=== PATIENT | female | born 1955 | race Two or more races ===

== ENCOUNTER 2018-08-23 14:44 | Emergency (ER) | payer OTHER ==
[~2018-08-23] VITALS: Ht 152.4 cm; Wt 65.8 kg
[2018-08-23] MEDS ORDERED: ACETAMINOPHEN 325 MG TAB PO ONE (15:15)
[2018-08-23] MEDS ORDERED: SODIUM CHLORIDE 0.9% 1,000 ML IV ONE ×2 (15:51→19:15)
[2018-08-23 16:04] LABS: Basophils # (auto) 0 uL; Basophils % (auto) 0.1 % (0.0-2.0); Eosinophils # (auto) 0 uL; Hemoglobin 9.7 g/dL (12.2-16.2); Lymphocytes # (auto) 1.1 uL; Lymphocytes % (auto) 4.9 % (10.0-50.0); Mean Corpuscular Hemoglobin 27.9 pg (28.0-32.0); Mean Corpuscular Hgb Conc. 31.4 g/dL (32.0-36.0); Mean Corpuscular Volume 88.8 fL (80.0-100.0); Monocytes # (auto) 1.1 uL; Monocytes % (auto) 4.6 % (0.0-12.0); Neutrophils # (auto) 20.9 uL; Neutrophils % (auto) 90.4 % (37.0-80.0); Platelet Count (auto) 347 10^3/uL (140-450); Red Blood Cells 3.49 10^6/uL (4.0-5.20); Red Cell Distribution Width 14.4 % (11.8-14.3); White Blood Cell 23.1 10^3/uL (4.4-10.8)
[2018-08-23 16:14] LABS: Alanine Aminotransferase 11 U/L (13-56); Albumin 2.6 g/dL (3.4-5.0); Anion Gap 10 (5-15); Aspartate Aminotransferase 9 U/L (15-37); BUN/Creatinine Ratio 16.5; Blood Urea Nitrogen 34 mg/dL (7-18); Calcium 9.1 mg/dL (8.5-10.1); Carbon Dioxide 22 mmol/L (21-32); Chloride 96 mmol/L (98-107); GFR African American 31 mL/min; GFR Non-African American 26 mL/min; Potassium 4.8 mmol/L (3.5-5.1); Sodium 128 mmol/L (136-145)
[2018-08-23 16:17] LABS: Alkaline Phosphatase 122 U/L (45-117); Bilirubin, Total 0.3 mg/dL (0.2-1.0); Total Protein 8.7 g/dL (6.4-8.2)
[2018-08-23 16:20] LABS: Lactic Acid w/Reflex 3.6 mmol/L (0.4-2.0)
[2018-08-23 16:26] LABS: Glucose 449 mg/dL (74-106)
[2018-08-23 16:37] LABS: INR 0.93 (0.9-1.15); Partial Thromboplastin Time 31.7 sec (23.78-33.04)
[2018-08-23] MEDS ORDERED: VANCOMYCIN 1GM/250ML 250 ML IV ONE (17:30)
[2018-08-23] MEDS ORDERED: VANCOMYCIN PER PHARMACY 0 MG IV SCH (17:45)
[2018-08-23] MEDS ORDERED: InsuLIN REG 1unit/0.01ml Soln (100units/ml) SC ONE (19:15)
[2018-08-23] MEDS ORDERED: InsuLIN REG 1unit/0.01ml Soln (100units/ml) IV ONE (19:15)
[2018-08-23] MEDS ORDERED: PIPERACILLIN-TAZO 4.5GM 100 ML IV ONE (19:30)
[2018-08-23] MEDS ORDERED: SODIUM CHLORIDE 0.9% 1,000 ML IV SCH (20:15)
[2018-08-23 22:10] VITALS: BP 149/72
[2018-08-24] MEDS ORDERED: PIPERACILLIN-TAZOB 2.25GM 50 ML IV SCH (03:00)
== END 2018-08-23 22:10 | disposition home or self-care (01) ==
LOC: EDSEX 14:44 → ER 14:44
DX: L03.115 Cellulitis of right lower limb (principal); E11.65 Type 2 diabetes mellitus with hyperglycemia; I10 Essential (primary) hypertension; Z98.51 Tubal ligation status; Z90.49 Acquired absence of other specified parts of digestive tract
CPT/HCPCS: 36415; 73630; 73700; 80053; 82962; 83605; 84484; 85025; 85610; 85730; 87040; 94761; 96361; 96365; 96367; 96372; 99285; J1815; J2543; J3370; J7030

== ENCOUNTER 2018-11-09 16:50 | Emergency (ER) | payer OTHER ==
[~2018-11-09] VITALS: Ht 144.8 cm; Wt 67.1 kg
[2018-11-09 17:04] VITALS: BP 150/71
[2018-11-09 17:22] LABS: Basophils # (auto) 0.1 uL; Basophils % (auto) 0.5 % (0.0-2.0); Eosinophils # (auto) 0.1 uL; Eosinophils % (auto) 1.3 % (0.0-7.0); Hematocrit 26.3 % (36.0-46.0); Hemoglobin 8.7 g/dL (12.2-16.2); Lymphocytes # (auto) 1.8 uL; Lymphocytes % (auto) 16.3 % (10.0-50.0); Mean Corpuscular Hgb Conc. 33.2 g/dL (32.0-36.0); Mean Corpuscular Volume 87.3 fL (80.0-100.0); Monocytes # (auto) 0.6 uL; Monocytes % (auto) 5.3 % (0.0-12.0); Neutrophils # (auto) 8.5 uL; Neutrophils % (auto) 76.6 % (37.0-80.0); Platelet Count (auto) 287 10^3/uL (140-450); Red Blood Cells 3.02 10^6/uL (4.0-5.20); Red Cell Distribution Width 16.6 % (11.8-14.3); White Blood Cell 11.1 10^3/uL (4.4-10.8)
[2018-11-09 17:39] LABS: Albumin 2.9 g/dL (3.4-5.0); Anion Gap 6 (5-15); Blood Urea Nitrogen 37 mg/dL (7-18); Calcium 8.4 mg/dL (8.5-10.1); Carbon Dioxide 24 mmol/L (21-32); Chloride 103 mmol/L (98-107); Potassium 4.7 mmol/L (3.5-5.1); Sodium 133 mmol/L (136-145)
[2018-11-09 17:44] LABS: Alanine Aminotransferase 17 U/L (13-56); Alkaline Phosphatase 174 U/L (45-117); Aspartate Aminotransferase 7 U/L (15-37); BUN/Creatinine Ratio 24.5; Bilirubin, Total 0.2 mg/dL (0.2-1.0); GFR African American 45 mL/min; GFR Non-African American 37 mL/min; Total Protein 7.8 g/dL (6.4-8.2)
[2018-11-09] MEDS ORDERED: SODIUM CHLORIDE 0.9% 1,000 ML IVB ONE (17:53)
[2018-11-09 17:56] LABS: Glucose 425 mg/dL (74-106)
[2018-11-09] MEDS ORDERED: MORPHINE SULFATE 10 MG/ML INJ 1ML SDV IV ONE (18:00)
[2018-11-09] MEDS ORDERED: ASPirin 81 mg TAB PO ONE (18:00)
[2018-11-09] MEDS ORDERED: ONDANSETRON HCL 4 MG/2 ML VIAL IV ONE (18:00)
[2018-11-09] MEDS ORDERED: InsuLIN REG 1unit/0.01ml Soln (100units/ml) IV ONE (18:00)
[2018-11-09 18:20] LABS: INR 0.87 (0.9-1.15); Partial Thromboplastin Time 28.4 sec (23.78-33.04); Prothrombin Time 9.4 sec (9.27-12.13)
== END 2018-11-09 17:55 | disposition left against medical advice (07) ==
LOC: ER 16:58
DX: R07.89 Other chest pain (principal); D64.9 Anemia, unspecified; E11.65 Type 2 diabetes mellitus with hyperglycemia; E78.5 Hyperlipidemia, unspecified; I10 Essential (primary) hypertension; Z98.51 Tubal ligation status; Z90.49 Acquired absence of other specified parts of digestive tract
CPT/HCPCS: 36415; 71046; 80053; 83735; 84484; 85025; 85610; 85730; 93005; 94761

== ENCOUNTER 2019-10-21 23:40 | Inpatient (IN) | payer OTHER ==
[~2019-10-21] VITALS: Ht 152.4 cm; Wt 70.0 kg
[~2019-10-21 23:40] MED LIST: AMLO5TAB15 PO; ATOR40TA52 PO; BENA20TA14 PO; CARV25TA55 PO; GABA300C10 PO; ISOS60TA24 PO
[2019-10-22] VITALS (8 sets, daily range): BP systolic 95–154; BP diastolic 55–75
[2019-10-22] MEDS ORDERED: MORPHINE SULFATE 4 MG/ML SYR/VIAL IV ONE
[2019-10-22 00:27] LABS: Basophils # (auto) 0 uL; Basophils % (auto) 0.4 % (0.0-2.0); Eosinophils # (auto) 0.3 uL; Eosinophils % (auto) 3.6 % (0.0-7.0); Hematocrit 28.9 % (36.0-46.0); Hemoglobin 9.8 g/dL (12.2-16.2); Lymphocytes # (auto) 2.9 uL; Lymphocytes % (auto) 32.4 % (10.0-50.0); Mean Corpuscular Hgb Conc. 33.9 g/dL (32.0-36.0); Mean Corpuscular Volume 91.5 fL (80.0-100.0); Monocytes # (auto) 0.6 uL; Monocytes % (auto) 6.9 % (0.0-12.0); Neutrophils # (auto) 5.2 uL; Neutrophils % (auto) 56.7 % (37.0-80.0); Nucleated Red Blood Cells % 0.1 %; Platelet Count (auto) 226 10^3/uL (140-450); Red Blood Cells 3.16 10^6/uL (4.0-5.20); Red Cell Distribution Width 14.6 % (11.8-14.3); White Blood Cell 9.1 10^3/uL (4.4-10.8)
[2019-10-22] MEDS ORDERED: ONDANSETRON HCL 4 MG/2 ML VIAL IV ONE (00:30)
[2019-10-22 00:42] LABS: Albumin 3.3 g/dL (3.4-5.0); BUN/Creatinine Ratio 25.2; Calcium 8.6 mg/dL (8.5-10.1); Potassium 5.2 mmol/L (3.5-5.1)
[2019-10-22 00:44] LABS: INR 1.01 (0.9-1.15); Partial Thromboplastin Time 25.4 sec (23.64-32.05)
[2019-10-22 00:47] LABS: Bilirubin, Total 0.2 mg/dL (0.2-1.0); Total Protein 7.4 g/dL (6.4-8.2)
[2019-10-22] MEDS ORDERED: ALBUTEROL SULF 2.5 MG/0.5ML(0.5%) NEB SOLN NEB STA (01:35)
[2019-10-22] MEDS ORDERED: ENOXAPARIN SOD 100 MG/1 ML SYRINGE SC ONE (01:45)
[2019-10-22] MEDS ORDERED: FUROSEMIDE 20 MG/2 ML VIAL IV ONE (01:45)
[2019-10-22] MEDS ORDERED: IPRATROPIUM BROM 0.5 MG/2.5ML INH SOL NEB ONE (01:45)
[2019-10-22] MEDS ORDERED: ASPirin-EC 81 mg tab PO ONE (02:00)
[2019-10-22 02:42] LABS: Urine Bacteria MANY /hpf (None Seen); Urine Blood Negative /uL (Negative); Urine Hyaline Cast MOD /lpf (0 - 2); Urine Specific Gravity 1.011 (1.001-1.035); Urine WBC 3 /hpf (0 - 5)
[2019-10-22] MEDS ORDERED: SODIUM CHLORIDE 0.9% 1,000 ML IV SCH (02:42)
[2019-10-22] MEDS ORDERED: LORazepam 0.5 MG TAB PO PRN (02:45)
[2019-10-22] MEDS ORDERED: MORPHINE SULFATE 4 MG/ML SYR/VIAL IV PRN (02:45)
[2019-10-22] MEDS ORDERED: DEXTROSE (50%) 50ML SYRG IV PRN (02:45)
[2019-10-22] MEDS ORDERED: MORPHINE SULF INJ 2 MG/ML SYRINGE 1ML IV PRN (02:45)
[2019-10-22] MEDS ORDERED: ACETAMINOPHEN 325 MG TAB PO PRN (02:45)
[2019-10-22] MEDS ORDERED: NITROGLYCERIN 0.4 MG SL TAB SL PRN ×3 (02:45)
[2019-10-22] MEDS ORDERED: ONDANSETRON HCL 4 MG/2 ML VIAL IV PRN (02:45)
[2019-10-22] MEDS: ACCU-CHEK COMFORT CURVE STRIP VI SCH ×5 (04:00→20:00)
--- NOTE | 2019-10-22 05:10 | NUR ---
Telemetry admit from ER SUKHJINDER TEJADA admitted to Telemetry unit after SBAR received. Patient oriented to SUKHJINDER PALACIOS RN primary RN, unit, room, bed, and unit policies regarding patient care and visiting hours. Patient now on continuous telemetry monitoring, tele box # 67 and telemetry reading on arrival to unit is Sinus Rhythm at 74BPM. Patient placed on bedside oxygen, weighed by bedscale and encouraged to call if they need something. All questions and concerns addressed, patient verbalized understanding.
[2019-10-22] MEDS: InsuLIN REG 1unit/0.01ml Soln (100units/ml) SC SCH ×5 (05:42→20:44)
--- NOTE | 2019-10-22 06:53 | NUR ---
Respiratory note: Received pt already off BIPAP. Pt on 4L/m NC, HR 79, RR 14, POX 99%. Breath sounds clear/diminished, no s/s of respiratory distress noted. Pt resting comfortably in bed, denies any SOB at this time. BIPAP at bedside, not indicated at this time. Advised pt to call for RT if feeling SOB or wants to go back on BIPAP, pt verbalized understanding. Wrote RT name and pager number on whiteboard.
[2019-10-22 07:24] LABS: Basophils # (auto) 0 uL; Basophils % (auto) 0.5 % (0.0-2.0); Eosinophils # (auto) 0.2 uL; Eosinophils % (auto) 2.1 % (0.0-7.0); Hematocrit 28.8 % (36.0-46.0); Hemoglobin 9.8 g/dL (12.2-16.2); Lymphocytes # (auto) 2.1 uL; Lymphocytes % (auto) 23.5 % (10.0-50.0); Mean Corpuscular Hemoglobin 31.2 pg (28.0-32.0); Mean Corpuscular Hgb Conc. 34.1 g/dL (32.0-36.0); Mean Corpuscular Volume 91.4 fL (80.0-100.0); Monocytes # (auto) 0.5 uL; Monocytes % (auto) 5.6 % (0.0-12.0); Neutrophils # (auto) 6.1 uL; Neutrophils % (auto) 68.3 % (37.0-80.0); Platelet Count (auto) 220 10^3/uL (140-450); Red Blood Cells 3.15 10^6/uL (4.0-5.20); Red Cell Distribution Width 14.8 % (11.8-14.3); White Blood Cell 8.9 10^3/uL (4.4-10.8)
--- NOTE | 2019-10-22 07:30 | NUR ---
received patient from watch commander RN. Patient a/o x4. On 4L NC, no complains of pain. compliant with assessments. Able to make needs known. Pineda catheter intact and draining with clear pale voids. Will continue to monitor for changes.
[2019-10-22 07:41] LABS: Calcium 8.5 mg/dL (8.5-10.1)
[2019-10-22 07:50] LABS: Potassium 6.2 mmol/L (3.5-5.1)
[2019-10-22] MEDS ORDERED: ENOXAPARIN SOD 60 MG/0.6 ML SYRINGE SC SCH ×2 (09:00→10:00)
[2019-10-22] MEDS ORDERED: ENALAPRIL MALEATE 2.5 MG TAB PO SCH (10:00)
[2019-10-22] MEDS ORDERED: PATIENTS OWN MEDICATION (Carvedilol 25 MG) PO SCH (10:00)
[2019-10-22] MEDS ORDERED: amLODIPine BESYLATE 5 MG TAB PO SCH (10:00)
[2019-10-22] MEDS ORDERED: METOPROLOL TARTRATE 25 MG TAB PO SCH (10:00)
[2019-10-22] MEDS: CLOPIDOGREL BISULFATE 75 MG TAB PO SCH (10:25)
[2019-10-22] MEDS: GABAPENTIN 300 MG CAP PO SCH ×2 (10:25→21:37)
[2019-10-22] MEDS: CARVEDILOL 12.5 MG TAB PO SCH ×2 (10:28→21:39)
[2019-10-22] MEDS: ASPirin 81 mg TAB PO SCH (10:29)
[2019-10-22] MEDS: ISOSORBIDE MONONITRATE ER 60 MG TAB PO SCH (10:29)
[2019-10-22] MEDS: DOCUSATE SOD 100 MG CAP PO SCH (10:29)
[2019-10-22] MEDS ORDERED: FUROSEMIDE 40 MG/4 ML VIAL IV ONE ×2 (14:30)
--- NOTE | 2019-10-22 14:50 | NUR ---
Seen by Dr Nuñez and Dr Julio. 40mg Lasix IV given per MD's order. NS fluids discontinued by Dr Garvin's order.
[2019-10-22] MEDS ORDERED: SODIUM ZIRCONIUM CYCL 10 GM PAK PO ONE (15:15)
[2019-10-22] MEDS ORDERED: SODIUM BICARBONATE 8.4 % INJ 50ML VIAL IV ONE (15:15)
[2019-10-22 16:58] LABS: BUN/Creatinine Ratio 28.2; Calcium 8.5 mg/dL (8.5-10.1); Potassium 5.3 mmol/L (3.5-5.1)
[2019-10-22] MEDS ORDERED: PATIENTS OWN MEDICATION (Atorvastatin Calcium 1 TAB) PO SCH (18:00)
--- NOTE | 2019-10-22 18:59 | NUR ---
Respiratory note: PT NOT ON BIPAP AT THIS TIME, NOT INDICATED. PT IS ON 4L NC, SATS 98%, HR 88, RR 16. STATES DOES NOT WEAR O2 AT HOME, DECREASED TO 3LPM. BIPAP AND CONT. PULSE OX REMAIN AT BEDSIDE.
--- NOTE | 2019-10-22 19:25 | NUR ---
Opening Shift Note Received report from paco Schumacher RN. Assumed care of patient, awake and alert. No S/S of distress/SOB or pain. On 3LNC saturating at 98%Instructed on POC and to call for assist PRN, will continue to monitor for changes Q1hr and PRN. Bed placed in lowest position, and call light within reach.
[2019-10-22 20:27] LABS: BUN/Creatinine Ratio 27.4; Calcium 8.7 mg/dL (8.5-10.1); Potassium 4.9 mmol/L (3.5-5.1)
[2019-10-22] MEDS: ATORVASTATIN 20 MG TAB PO SCH (21:37)
[2019-10-22] MEDS ORDERED: ATORVASTATIN 20 MG TAB PO SCH (22:00)
[2019-10-23] MEDS: InsuLIN REG 1unit/0.01ml Soln (100units/ml) SC SCH ×4 (01:13→17:53)
[2019-10-23] MEDS: ACCU-CHEK COMFORT CURVE STRIP VI SCH ×5 (04:00→21:38)
[2019-10-23 05:38] VITALS: BP 111/57
[2019-10-23 07:02] LABS: BUN/Creatinine Ratio 32.6; Calcium 8.9 mg/dL (8.5-10.1); Potassium 4.6 mmol/L (3.5-5.1)
--- NOTE | 2019-10-23 07:25 | NUR ---
Respiratory note: PT FOUND TO BE OFF BIPAP SLEEPING, APPEARS COMFORTABLE. NO DISTRESS NOTED. HR 80 RR 18 SPO2 99% ON 3L N/C DECREASED TO 2L N/C. BREATH SOUNDS ARE DIMINISHED T/O.
--- NOTE | 2019-10-23 07:30 | NUR ---
Received report from Leatha date night sitter RN. Assumed care of patient, awake and alert. No S/S of distress, denies SOB or pain. Instructed on POC and to call for assist PRN, will continue to monitor for changes Q1hr and PRN. Bed placed in lowest position, and call light within reach.
[2019-10-23] MEDS: CARVEDILOL 12.5 MG TAB PO SCH ×2 (09:24→21:16)
[2019-10-23] MEDS: DOCUSATE SOD 100 MG CAP PO SCH (09:25)
[2019-10-23] MEDS: GABAPENTIN 300 MG CAP PO SCH ×2 (09:25→21:16)
[2019-10-23] MEDS: ASPirin 81 mg TAB PO SCH (09:25)
[2019-10-23] MEDS: CLOPIDOGREL BISULFATE 75 MG TAB PO SCH (09:25)
[2019-10-23] MEDS: ISOSORBIDE MONONITRATE ER 60 MG TAB PO SCH (09:25)
[2019-10-23 10:03] VITALS: BP 124/63
[2019-10-23] MEDS ORDERED: FUROSEMIDE 40 MG/4 ML VIAL IV SCH (10:45)
[2019-10-23] MEDS ORDERED: DEXTROSE (50%) 50ML SYRG IV PRN (13:00)
[2019-10-23 13:02] VITALS: BP 118/61
--- NOTE | 2019-10-23 13:20 | NUR ---
PER DR. MIJARES AT 1255. PATIENT'S GRAVES TO BE DISCONTINUED.
[2019-10-23 16:56] VITALS: BP 117/68
--- NOTE | 2019-10-23 19:30 | NUR ---
Opening Shift Note Assumed care of patient, awake and alert. No S/S of distress/SOB or pain. Insructed on POC and to callfor assist PRN, will continue to monitor for changes Q1hr and PRN. Fall and safety precautions in place. Call light within reach.
[2019-10-23 21:00] VITALS: BP 118/61
[2019-10-23] MEDS: ATORVASTATIN 20 MG TAB PO SCH (21:16)
--- NOTE | 2019-10-23 21:17 | NUR ---
TEMP Patient's oral temp 99.1. Patient medicated with PRN temperature medication (see emar) and cooling measures applied. Will continue to monitor
--- NOTE | 2019-10-23 21:45 | NUR ---
CHEST PAIN Patient complaining of chest pain radiating down left arm and neck and SOB. EKG done at this time, showing "sinus tachycardia, LVH with secondary repolarization abnormality, Anterior ST elevation, HR 107." Vitals taken; BP 113/69, HR 112, O2 86% on 2L NC. Oxygen increased to 5L NC and HOB elevated to 90 degrees. Patient instructed to take deep breaths through nose, but patient stated unable due to chest pain. 2151: Patient medicated with chest pain medication (see emar). RT paged regarding O2 sat. RT at bedside, checking pulse ox, 79%. Patient placed on bipap machine per MD order, O2 increased to 96%. Chest pain reassessed; patient states pain 5/10 and SOB subsiding. 2206: Hospitalist paged. Patient resting quietly with eyes closed, even and unlabored breathing at this time. Received call back from hospitalist on-call, Dr. Virk. New orders received for STAT troponin. Will show Dr. Virk EKG for signing. 0: Lab called regarding STAT troponin, requesting optimization consultant to draw. 2223: EKG shown to Dr. Virk and signed. No new orders received at this time, instructed to continue to monitor patient.
[2019-10-23] MEDS ORDERED: InsuLIN REG 1unit/0.01ml Soln (100units/ml) SC SCH (22:00)
--- NOTE | 2019-10-23 22:16 | NUR ---
TEMP Patient's axillary temp 99.4. Recheck; 99.6. Cooling measures continued. Will continue to monitor
--- NOTE | 2019-10-23 23:15 | NUR ---
TEMP Patient's axillary temp 98.8. Patient resting quietly with eyes closed, even and unlabored breathing. will continue to monitor
[2019-10-24 04:30] VITALS: BP 106/69
[2019-10-24] MEDS: ACCU-CHEK COMFORT CURVE STRIP VI SCH ×4 (06:33→21:36)
[2019-10-24] MEDS: InsuLIN REG 1unit/0.01ml Soln (100units/ml) SC SCH ×4 (06:34→21:37)
[2019-10-24 06:48] LABS: Basophils # (auto) 0 uL; Basophils % (auto) 0.3 % (0.0-2.0); Eosinophils # (auto) 0.2 uL; Eosinophils % (auto) 3.5 % (0.0-7.0); Hematocrit 27.5 % (36.0-46.0); Hemoglobin 9.6 g/dL (12.2-16.2); Lymphocytes % (auto) 27.7 % (10.0-50.0); Mean Corpuscular Hemoglobin 31.6 pg (28.0-32.0); Mean Corpuscular Hgb Conc. 34.8 g/dL (32.0-36.0); Mean Corpuscular Volume 90.8 fL (80.0-100.0); Monocytes # (auto) 0.6 uL; Monocytes % (auto) 8.4 % (0.0-12.0); Neutrophils # (auto) 4.3 uL; Neutrophils % (auto) 60.1 % (37.0-80.0); Platelet Count (auto) 187 10^3/uL (140-450); Red Blood Cells 3.03 10^6/uL (4.0-5.20); Red Cell Distribution Width 14.3 % (11.8-14.3); White Blood Cell 7.2 10^3/uL (4.4-10.8)
[2019-10-24 06:57] LABS: Potassium 4.6 mmol/L (3.5-5.1)
[2019-10-24 07:01] LABS: BUN/Creatinine Ratio 32.1
[2019-10-24 09:27] VITALS: BP 125/67
[2019-10-24] MEDS: DOCUSATE SOD 100 MG CAP PO SCH (09:31)
[2019-10-24] MEDS: CLOPIDOGREL BISULFATE 75 MG TAB PO SCH (09:31)
[2019-10-24] MEDS: ISOSORBIDE MONONITRATE ER 60 MG TAB PO SCH (09:32)
[2019-10-24] MEDS: GABAPENTIN 300 MG CAP PO SCH ×2 (09:32→21:48)
[2019-10-24] MEDS: ASPirin 81 mg TAB PO SCH (09:32)
[2019-10-24] MEDS: BENAZEPRIL HCL 10 MG TAB PO SCH (09:33)
[2019-10-24] MEDS: CARVEDILOL 12.5 MG TAB PO SCH ×2 (09:34→21:47)
[2019-10-24] MEDS ORDERED: FUROSEMIDE 40 MG TAB PO SCH (10:00)
[2019-10-24 13:00] VITALS: BP 113/58
[2019-10-24] MEDS ORDERED: DEXTROSE (50%) 50ML SYRG IV PRN (16:45)
[2019-10-24] MEDS ORDERED: ENOXAPARIN SOD 80 MG/0.8ML SYRINGE SC ONE (16:45)
[2019-10-24] MEDS ORDERED: SODIUM CHLORIDE 0.9% 1,000 ML IV SCH (17:00)
[2019-10-24 17:07] VITALS: BP 103/57
--- NOTE | 2019-10-24 17:45 | NUR ---
DR. LAM SAW PATIENT AND MADE ORDERS FOR CARDIOLYTE MULTIPLE FOR 10/25/19. PATIENT TO BE NPO TONIGHT AT MIDNIGHT.
[2019-10-24] MEDS ORDERED: FUROSEMIDE 40 MG/4 ML VIAL IV ONE (18:45)
--- NOTE | 2019-10-24 19:00 | NUR ---
Opening Shift Note Assumed care of patient, awake and alert. No S/S of distress/SOB or pain. Instructed on POC and to call for assist PRN, will continue to monitor for changes Q1hr and PRN.
--- NOTE | 2019-10-24 19:39 | NUR ---
PT ASSESSED, NO SOB NOTED. PT REFUSING TO WEAR BIPAP LATER TONIGHT, STATED THAT UNABLE TO TOLERATE.
[2019-10-24 21:00] VITALS: BP 107/55
[2019-10-24] MEDS: ATORVASTATIN 20 MG TAB PO SCH (21:48)
--- NOTE | 2019-10-24 23:00 | NUR ---
IV insertion IV access to right hand obtained, via clean sterile technique by inserting 22 gauge catheter after first attempt. IV secured properly. No trauma to site. Patient tolerated procedure well. IV insertion IV access to left forearm obtained, via clean sterile technique by inserting 20 gauge catheter after first attempt. IV secured properly. No trauma to site. Patient tolerated procedure well.
--- NOTE | 2019-10-24 23:15 | NUR ---
IV removal IV to left hand infiltrated: IV to left hand DC'd with sterile technique, catheter fully intact. Pressure dressing applied to site. Patient tolerated procedure well.
[2019-10-25] VITALS (7 sets, daily range): BP systolic 103–119; BP diastolic 56–63
[2019-10-25] MEDS: FUROSEMIDE 40 MG/4 ML VIAL IV SCH ×2 (05:52→17:58)
[2019-10-25] MEDS: ENOXAPARIN SOD 80 MG/0.8ML SYRINGE SC SCH ×2 (06:02→18:25)
[2019-10-25 06:16] LABS: Basophils # (auto) 0 uL; Basophils % (auto) 0.4 % (0.0-2.0); Eosinophils # (auto) 0.3 uL; Eosinophils % (auto) 4.4 % (0.0-7.0); Hematocrit 27.7 % (36.0-46.0); Hemoglobin 9.6 g/dL (12.2-16.2); Lymphocytes # (auto) 1.6 uL; Lymphocytes % (auto) 22.5 % (10.0-50.0); Mean Corpuscular Hemoglobin 31.6 pg (28.0-32.0); Mean Corpuscular Hgb Conc. 34.6 g/dL (32.0-36.0); Mean Corpuscular Volume 91.2 fL (80.0-100.0); Monocytes # (auto) 0.6 uL; Monocytes % (auto) 7.7 % (0.0-12.0); Neutrophils # (auto) 4.6 uL; Nucleated Red Blood Cells % 0.1 %; Platelet Count (auto) 191 10^3/uL (140-450); Red Blood Cells 3.04 10^6/uL (4.0-5.20); White Blood Cell 7.1 10^3/uL (4.4-10.8)
[2019-10-25] MEDS: ACCU-CHEK COMFORT CURVE STRIP VI SCH ×4 (06:31→23:06)
[2019-10-25 06:33] LABS: Potassium 4.6 mmol/L (3.5-5.1)
[2019-10-25] MEDS: InsuLIN REG 1unit/0.01ml Soln (100units/ml) SC SCH ×4 (06:34→23:38)
[2019-10-25 06:44] LABS: Albumin 3.2 g/dL (3.4-5.0); BUN/Creatinine Ratio 38.3; Bilirubin, Total 0.2 mg/dL (0.2-1.0); Calcium 9.2 mg/dL (8.5-10.1); Magnesium 2.5 mg/dL (1.6-2.6); Phosphorus 3.5 mg/dL (2.5-4.90); Total Protein 7.1 g/dL (6.4-8.2)
--- NOTE | 2019-10-25 08:05 | NUR ---
Respiratory note: ASSESSED PATIENT , NO DISTRESS NOTED. PT IS ON 2L N/C SPO2 99%, RR 16, HR 73 BS ARE CLEAR. PATIENT STATED SHE.HAS NOT USED BIPAP SINCE YESTERDAY.
[2019-10-25] MEDS: ASPirin 81 mg TAB PO SCH (10:00)
[2019-10-25] MEDS: DOCUSATE SOD 100 MG CAP PO SCH (10:01)
[2019-10-25] MEDS: CARVEDILOL 12.5 MG TAB PO SCH ×2 (10:01→23:05)
[2019-10-25] MEDS: ISOSORBIDE MONONITRATE ER 60 MG TAB PO SCH (10:02)
[2019-10-25] MEDS: BENAZEPRIL HCL 10 MG TAB PO SCH (10:03)
[2019-10-25] MEDS: GABAPENTIN 300 MG CAP PO SCH ×2 (10:03→23:05)
[2019-10-25] MEDS: CLOPIDOGREL BISULFATE 75 MG TAB PO SCH (10:03)
--- NOTE | 2019-10-25 19:30 | NUR ---
Opening Shift Note Assumed care of patient, awake and alert x4. Patient denies pain or shortness of breath at this time. Instructed on plan of care and to call for assistance as needed, patient verbalized understanding. Bed is locked in lowest position, side rails x 2 are up, call light is within reach, and bed alarm is on.
[2019-10-25] MEDS: ATORVASTATIN 20 MG TAB PO SCH (23:05)
--- NOTE | 2019-10-26 02:20 | NUR ---
URINE CULTURE COLLECTED AND SENT TO LAB Urine culture collected and sent to lab.
[2019-10-26 04:57] VITALS: BP 117/58
--- NOTE | 2019-10-26 05:30 | NUR ---
IV insertion IV access obtained, via clean sterile technique by inserting 20 gauge catheter at right forearm after 1 attempt. IV secured properly. No trauma to site. Patient tolerated well.
[2019-10-26] MEDS: ENOXAPARIN SOD 80 MG/0.8ML SYRINGE SC SCH (05:39)
[2019-10-26] MEDS: ACCU-CHEK COMFORT CURVE STRIP VI SCH ×4 (05:40→21:22)
[2019-10-26] MEDS: InsuLIN REG 1unit/0.01ml Soln (100units/ml) SC SCH ×4 (05:40→21:22)
--- NOTE | 2019-10-26 05:40 | NUR ---
IV removal IV to right hand DC'd with clean sterile technique, catheter fully intact. Pressure dressing applied to site. Patient tolerated well.
[2019-10-26] MEDS: FUROSEMIDE 40 MG/4 ML VIAL IV SCH (05:41)
[2019-10-26 07:12] LABS: Basophils # (auto) 0 uL; Basophils % (auto) 0.6 % (0.0-2.0); Eosinophils # (auto) 0.3 uL; Eosinophils % (auto) 5.1 % (0.0-7.0); Hematocrit 31.3 % (36.0-46.0); Hemoglobin 10.8 g/dL (12.2-16.2); Lymphocytes # (auto) 1.5 uL; Lymphocytes % (auto) 27.2 % (10.0-50.0); Mean Corpuscular Hemoglobin 31.8 pg (28.0-32.0); Mean Corpuscular Hgb Conc. 34.5 g/dL (32.0-36.0); Monocytes # (auto) 0.4 uL; Monocytes % (auto) 6.5 % (0.0-12.0); Neutrophils # (auto) 3.4 uL; Neutrophils % (auto) 60.6 % (37.0-80.0); Platelet Count (auto) 209 10^3/uL (140-450); Red Blood Cells 3.41 10^6/uL (4.0-5.20); Red Cell Distribution Width 14.3 % (11.8-14.3); White Blood Cell 5.6 10^3/uL (4.4-10.8)
[2019-10-26 07:24] LABS: BUN/Creatinine Ratio 34.8; Calcium 9.4 mg/dL (8.5-10.1); Potassium 4.9 mmol/L (3.5-5.1)
--- NOTE | 2019-10-26 07:45 | NUR ---
Respiratory note: PT IS AWAKE, AND ALERT. NO RESPIRATORY DISTRESS NOTED. SPO2 97% ON RA, HR 69, RR 18, BS CLEAR BILATERALLY. NO PRN MEDNEB TX INDICATED AT THIS TIME. PT INFORMED TO PUSH CALL BUTTON IF INCREASED WOB, SOB, OR WHEEZING OCCURS.
[2019-10-26 08:00] VITALS: BP 131/61
[2019-10-26] MEDS ORDERED: ADENOSINE 58 MG in GIVE UN-DILUTED 0 ML IV STA (08:19)
--- NOTE | 2019-10-26 08:31 | NUR ---
CRITICAL VALUE OF TRIPONIN 0.[address] WILLIAM. INFORMED TO WAAIT UNTIL PATIENT COMPLETES STRESS TEST FOR NEW ORDERS
[2019-10-26 08:48] VITALS: BP 131/61
[2019-10-26] MEDS: ASPirin 81 mg TAB PO SCH (10:00)
[2019-10-26] MEDS: CARVEDILOL 12.5 MG TAB PO SCH ×2 (10:00→21:21)
[2019-10-26] MEDS: CLOPIDOGREL BISULFATE 75 MG TAB PO SCH (10:00)
[2019-10-26] MEDS: BENAZEPRIL HCL 10 MG TAB PO SCH (10:00)
[2019-10-26] MEDS: DOCUSATE SOD 100 MG CAP PO SCH (10:00)
[2019-10-26] MEDS: ISOSORBIDE MONONITRATE ER 60 MG TAB PO SCH (10:00)
[2019-10-26] MEDS: GABAPENTIN 300 MG CAP PO SCH ×2 (10:00→21:21)
[2019-10-26 11:33] VITALS: BP 136/64
[2019-10-26] MEDS ORDERED: LIDOCAINE 2%HCL (LOCAL ANESTH.) INJ 20ML MDV ONE (13:46)
[2019-10-26] MEDS ORDERED: fentaNYL CITRATE 100 MCG/2 ML VL ONE (13:51)
[2019-10-26] MEDS ORDERED: MIDAZOLAM HCL 1MG/1ML-2 ML VIAL ONE (13:51)
[2019-10-26] MEDS ORDERED: SODIUM CHL 0.9% 0 ML ONE (13:51)
[2019-10-26] MEDS ORDERED: ANGIOMAX 250 MG VIAL IV ONE (13:51)
[2019-10-26] MEDS ORDERED: IOHEXOL 350 MG/ML 100ML IJ ONE (14:04)
--- NOTE | 2019-10-26 15:22 | NUR ---
Nutrition Assessment Notes please see attached link for complete assessment Est. Needs based on BW (70 kg): 5628-9829 kcal (20-23 kcal/kgBW), 56-70 gms pro (0.8-1.0 gms/kgBW r/t elev RFT CKD). Will continue to monitor pertinent labs and reassess nutrient need prn Addendum: 10/26/19 at [address] Amended: Links added.
[2019-10-26 16:39] VITALS: BP 141/70
[2019-10-26] MEDS: ATORVASTATIN 20 MG TAB PO SCH (21:21)
[2019-10-26] MEDS: ENOXAPARIN SOD 60 MG/0.6 ML SYRINGE SC SCH (21:22)
[2019-10-26 21:58] VITALS: BP 136/64
[2019-10-27] VITALS (7 sets, daily range): BP systolic 128–143; BP diastolic 64–71
[2019-10-27] MEDS: ACCU-CHEK COMFORT CURVE STRIP VI SCH ×4 (06:09→21:18)
[2019-10-27] MEDS: InsuLIN REG 1unit/0.01ml Soln (100units/ml) SC SCH ×4 (06:14→21:25)
[2019-10-27 06:41] LABS: Basophils # (auto) 0 uL; Basophils % (auto) 0.4 % (0.0-2.0); Eosinophils # (auto) 0.3 uL; Eosinophils % (auto) 4.4 % (0.0-7.0); Hematocrit 30.8 % (36.0-46.0); Hemoglobin 10.9 g/dL (12.2-16.2); Lymphocytes # (auto) 1.6 uL; Lymphocytes % (auto) 24.5 % (10.0-50.0); Mean Corpuscular Hemoglobin 32.3 pg (28.0-32.0); Mean Corpuscular Hgb Conc. 35.5 g/dL (32.0-36.0); Mean Corpuscular Volume 90.8 fL (80.0-100.0); Monocytes # (auto) 0.6 uL; Monocytes % (auto) 9.1 % (0.0-12.0); Neutrophils # (auto) 3.9 uL; Neutrophils % (auto) 61.6 % (37.0-80.0); Nucleated Red Blood Cells % 0.1 %; Platelet Count (auto) 192 10^3/uL (140-450); Red Blood Cells 3.39 10^6/uL (4.0-5.20); Red Cell Distribution Width 14.4 % (11.8-14.3); White Blood Cell 6.3 10^3/uL (4.4-10.8)
[2019-10-27 06:56] LABS: Calcium 9.3 mg/dL (8.5-10.1); Potassium 4.7 mmol/L (3.5-5.1)
[2019-10-27 06:58] LABS: BUN/Creatinine Ratio 31.7
[2019-10-27] MEDS: FUROSEMIDE 40 MG/4 ML VIAL IV SCH (10:09)
[2019-10-27] MEDS: ASPirin 81 mg TAB PO SCH (10:12)
[2019-10-27] MEDS: DOCUSATE SOD 100 MG CAP PO SCH (10:12)
[2019-10-27] MEDS: CARVEDILOL 12.5 MG TAB PO SCH ×2 (10:14→21:18)
[2019-10-27] MEDS: ISOSORBIDE MONONITRATE ER 60 MG TAB PO SCH (10:14)
[2019-10-27] MEDS: BENAZEPRIL HCL 10 MG TAB PO SCH (10:15)
[2019-10-27] MEDS: GABAPENTIN 300 MG CAP PO SCH ×2 (10:16→21:17)
[2019-10-27] MEDS: ENOXAPARIN SOD 60 MG/0.6 ML SYRINGE SC SCH ×2 (10:21→21:17)
[2019-10-27] MEDS: ATORVASTATIN 20 MG TAB PO SCH (21:18)
[2019-10-28 05:02] VITALS: BP 137/70
[2019-10-28] MEDS: ACCU-CHEK COMFORT CURVE STRIP VI SCH ×4 (06:35→21:39)
[2019-10-28] MEDS: InsuLIN REG 1unit/0.01ml Soln (100units/ml) SC SCH ×4 (06:39→21:39)
[2019-10-28 07:11] LABS: Basophils # (auto) 0 uL; Basophils % (auto) 0.5 % (0.0-2.0); Eosinophils # (auto) 0.3 uL; Eosinophils % (auto) 4.3 % (0.0-7.0); Hematocrit 27.8 % (36.0-46.0); Hemoglobin 9.7 g/dL (12.2-16.2); Lymphocytes # (auto) 1.8 uL; Lymphocytes % (auto) 27.7 % (10.0-50.0); Mean Corpuscular Hemoglobin 31.6 pg (28.0-32.0); Mean Corpuscular Hgb Conc. 34.8 g/dL (32.0-36.0); Mean Corpuscular Volume 90.6 fL (80.0-100.0); Monocytes # (auto) 0.6 uL; Monocytes % (auto) 8.4 % (0.0-12.0); Neutrophils # (auto) 3.9 uL; Neutrophils % (auto) 59.1 % (37.0-80.0); Platelet Count (auto) 173 10^3/uL (140-450); Red Blood Cells 3.07 10^6/uL (4.0-5.20); Red Cell Distribution Width 14.3 % (11.8-14.3); White Blood Cell 6.6 10^3/uL (4.4-10.8)
[2019-10-28 07:34] LABS: Potassium 5.2 mmol/L (3.5-5.1)
[2019-10-28 07:44] LABS: BUN/Creatinine Ratio 24.5; Calcium 8.8 mg/dL (8.5-10.1)
[2019-10-28 08:00] VITALS: BP 133/69
[2019-10-28 09:00] VITALS: BP 133/69
[2019-10-28] MEDS: FUROSEMIDE 40 MG/4 ML VIAL IV SCH (09:57)
[2019-10-28] MEDS: ASPirin 81 mg TAB PO SCH (09:58)
[2019-10-28] MEDS: DOCUSATE SOD 100 MG CAP PO SCH (09:58)
[2019-10-28] MEDS: CARVEDILOL 12.5 MG TAB PO SCH ×2 (09:59→22:14)
[2019-10-28] MEDS: ISOSORBIDE MONONITRATE ER 60 MG TAB PO SCH (10:00)
[2019-10-28] MEDS: BENAZEPRIL HCL 10 MG TAB PO SCH (10:00)
[2019-10-28] MEDS: GABAPENTIN 300 MG CAP PO SCH ×2 (10:00→21:39)
[2019-10-28] MEDS: ENOXAPARIN SOD 60 MG/0.6 ML SYRINGE SC SCH (10:01)
--- NOTE | 2019-10-28 11:00 | NUR ---
woods catheter inserted with no evidence of trauma
[2019-10-28 12:30] VITALS: BP 132/70
[2019-10-28] MEDS ORDERED: SODIUM ZIRCONIUM CYCL 10 GM PAK PO ONE (13:30)
[2019-10-28 15:48] LABS: Sodium Urine 54 mmol/L (40-220)
[2019-10-28 15:50] LABS: Creatinine, Urine 33 mg/dL (30.0-125.0)
[2019-10-28 17:00] VITALS: BP 125/70
[2019-10-28] MEDS: ATORVASTATIN 20 MG TAB PO SCH (21:39)
[2019-10-29] VITALS (7 sets, daily range): BP systolic 118–135; BP diastolic 51–66
[2019-10-29] MEDS: ACCU-CHEK COMFORT CURVE STRIP VI SCH ×4 (06:12→21:55)
[2019-10-29] MEDS: InsuLIN REG 1unit/0.01ml Soln (100units/ml) SC SCH ×4 (06:44→22:01)
[2019-10-29 07:00] LABS: BUN/Creatinine Ratio 23.7; Calcium 8.3 mg/dL (8.5-10.1); Potassium 4.8 mmol/L (3.5-5.1)
[2019-10-29 07:09] LABS: Basophils # (auto) 0 uL; Basophils % (auto) 0.3 % (0.0-2.0); Eosinophils # (auto) 0.2 uL; Eosinophils % (auto) 3.8 % (0.0-7.0); Hematocrit 25.7 % (36.0-46.0); Hemoglobin 9.2 g/dL (12.2-16.2); Lymphocytes # (auto) 1.6 uL; Mean Corpuscular Hemoglobin 32.4 pg (28.0-32.0); Mean Corpuscular Hgb Conc. 35.9 g/dL (32.0-36.0); Mean Corpuscular Volume 90.5 fL (80.0-100.0); Monocytes # (auto) 0.5 uL; Monocytes % (auto) 8.2 % (0.0-12.0); Neutrophils # (auto) 3.8 uL; Neutrophils % (auto) 61.7 % (37.0-80.0); Platelet Count (auto) 161 10^3/uL (140-450); Red Blood Cells 2.85 10^6/uL (4.0-5.20); Red Cell Distribution Width 13.9 % (11.8-14.3); White Blood Cell 6.2 10^3/uL (4.4-10.8)
[2019-10-29] MEDS: FUROSEMIDE 40 MG/4 ML VIAL IV SCH ×2 (09:29→11:15)
[2019-10-29] MEDS: ASPirin 81 mg TAB PO SCH (09:29)
[2019-10-29] MEDS: DOCUSATE SOD 100 MG CAP PO SCH (09:30)
[2019-10-29] MEDS: CARVEDILOL 12.5 MG TAB PO SCH ×2 (09:31→18:02)
[2019-10-29] MEDS: BENAZEPRIL HCL 10 MG TAB PO SCH (09:32)
[2019-10-29] MEDS: ISOSORBIDE MONONITRATE ER 60 MG TAB PO SCH (09:32)
[2019-10-29] MEDS: ENOXAPARIN SOD 60 MG/0.6 ML SYRINGE SC SCH (09:33)
[2019-10-29] MEDS: GABAPENTIN 300 MG CAP PO SCH ×2 (09:33→22:01)
[2019-10-29] MEDS ORDERED: BENAZEPRIL HCL 10 MG TAB PO SCH (11:15)
[2019-10-29] MEDS: ATORVASTATIN 20 MG TAB PO SCH (22:01)
[2019-10-30 04:42] VITALS: BP 127/57
[2019-10-30] MEDS: InsuLIN REG 1unit/0.01ml Soln (100units/ml) SC SCH ×4 (05:59→21:36)
[2019-10-30] MEDS: ACCU-CHEK COMFORT CURVE STRIP VI SCH ×4 (05:59→21:35)
[2019-10-30 06:52] LABS: Potassium 4.4 mmol/L (3.5-5.1)
[2019-10-30 07:11] LABS: BUN/Creatinine Ratio 24.8; Calcium 8.6 mg/dL (8.5-10.1)
[2019-10-30 08:00] VITALS: BP 114/57
[2019-10-30 09:00] VITALS: BP 114/57
[2019-10-30] MEDS: CARVEDILOL 12.5 MG TAB PO SCH ×2 (09:37→18:22)
[2019-10-30] MEDS: FUROSEMIDE 40 MG/4 ML VIAL IV SCH (09:38)
[2019-10-30] MEDS: ASPirin 81 mg TAB PO SCH (09:38)
[2019-10-30] MEDS: ISOSORBIDE MONONITRATE ER 60 MG TAB PO SCH (09:39)
[2019-10-30] MEDS: DOCUSATE SOD 100 MG CAP PO SCH (09:39)
[2019-10-30] MEDS: ENOXAPARIN SOD 60 MG/0.6 ML SYRINGE SC SCH (09:40)
[2019-10-30] MEDS: GABAPENTIN 300 MG CAP PO SCH ×2 (09:40→21:36)
[2019-10-30] MEDS ORDERED: fentaNYL CITRATE 100 MCG/2 ML VL ONE (12:22)
[2019-10-30] MEDS ORDERED: MIDAZOLAM HCL 1MG/1ML-2 ML VIAL ONE (12:22)
[2019-10-30] MEDS ORDERED: ANGIOMAX 250 MG VIAL IV ONE (12:22)
[2019-10-30] MEDS ORDERED: LIDOCAINE 2%HCL (LOCAL ANESTH.) INJ 20ML MDV ONE (12:23)
[2019-10-30] MEDS ORDERED: SODIUM CHL 0.9% 0 ML ONE (12:23)
[2019-10-30] MEDS ORDERED: IOHEXOL 350 MG/ML 100ML IJ ONE (12:23)
[2019-10-30 13:00] VITALS: BP 117/58
--- NOTE | 2019-10-30 16:33 | NUR ---
Assessment Pt is a 64 yr old alert and oriented Mexican speaking female. Assessment conducted through rn psychiatric. Pt lives with , Nolberto, who is her emergency contact at [phone]. Pt is ambulatory and independent with ADL's. Pt admitted with left sided chest and shoulder pain. Pt's Primary is Dr Moeller, no AD on file. Pt's financially supports her. Pt's can transport home upon d/c. Pt will d/c home upon medical clearance. No needs assessed at this time. Addendum: 10/30/19 at 1637 by VILMA DEJESUS Amended: Links added.
[2019-10-30 17:00] VITALS: BP 117/61
[2019-10-30] MEDS: ATORVASTATIN 20 MG TAB PO SCH (21:36)
[2019-10-30 22:00] VITALS: BP 111/54
[2019-10-31 05:08] VITALS: BP 132/59
[2019-10-31] MEDS: ACCU-CHEK COMFORT CURVE STRIP VI SCH ×4 (05:55→22:15)
[2019-10-31] MEDS: InsuLIN REG 1unit/0.01ml Soln (100units/ml) SC SCH ×4 (06:00→22:24)
[2019-10-31 06:24] LABS: BUN/Creatinine Ratio 28.7; Calcium 8.8 mg/dL (8.5-10.1); Potassium 4.4 mmol/L (3.5-5.1)
[2019-10-31 08:00] VITALS: BP 142/76
[2019-10-31 09:00] VITALS: BP 146/61
[2019-10-31] MEDS: ASPirin 81 mg TAB PO SCH (09:23)
[2019-10-31] MEDS: DOCUSATE SOD 100 MG CAP PO SCH (09:23)
[2019-10-31] MEDS: CARVEDILOL 12.5 MG TAB PO SCH ×2 (09:23→18:17)
[2019-10-31] MEDS: ISOSORBIDE MONONITRATE ER 60 MG TAB PO SCH (09:24)
[2019-10-31] MEDS: ENOXAPARIN SOD 60 MG/0.6 ML SYRINGE SC SCH (09:24)
[2019-10-31] MEDS: GABAPENTIN 300 MG CAP PO SCH ×2 (09:24→22:15)
[2019-10-31 17:00] VITALS: BP 116/58
[2019-10-31 22:01] VITALS: BP 129/58
[2019-10-31] MEDS: ATORVASTATIN 20 MG TAB PO SCH (22:14)
[2019-11-01 04:43] VITALS: BP 129/65
[2019-11-01 06:17] LABS: Calcium 9.1 mg/dL (8.5-10.1); Potassium 4.8 mmol/L (3.5-5.1)
[2019-11-01] MEDS: ACCU-CHEK COMFORT CURVE STRIP VI SCH ×4 (06:24→21:44)
[2019-11-01] MEDS: InsuLIN REG 1unit/0.01ml Soln (100units/ml) SC SCH ×4 (06:25→21:44)
[2019-11-01 08:00] VITALS: BP 138/62
[2019-11-01] MEDS: CARVEDILOL 12.5 MG TAB PO SCH ×2 (08:00→17:49)
[2019-11-01 09:00] VITALS: BP 138/62
[2019-11-01] MEDS: DOCUSATE SOD 100 MG CAP PO SCH (10:00)
[2019-11-01] MEDS: ASPirin 81 mg TAB PO SCH (10:00)
[2019-11-01] MEDS: ISOSORBIDE MONONITRATE ER 60 MG TAB PO SCH (10:00)
[2019-11-01] MEDS: GABAPENTIN 300 MG CAP PO SCH ×2 (10:00→21:43)
[2019-11-01 13:00] VITALS: BP 114/75
--- NOTE | 2019-11-01 13:00 | NUR ---
PT IN PROCEDURE FOR 1300 VITALS
[2019-11-01] MEDS ORDERED: ANGIOMAX 250 MG VIAL IV ONE (14:20)
[2019-11-01] MEDS ORDERED: fentaNYL CITRATE 100 MCG/2 ML VL ONE (14:20)
[2019-11-01] MEDS ORDERED: MIDAZOLAM HCL 1MG/1ML-2 ML VIAL ONE (14:20)
[2019-11-01] MEDS ORDERED: SODIUM CHL 0.9% 50 ML ONE (14:20)
[2019-11-01] MEDS ORDERED: LIDOCAINE 2%HCL (LOCAL ANESTH.) INJ 20ML MDV ONE ×2 (14:24→14:44)
[2019-11-01] MEDS ORDERED: IODIXANOL 320MG/ML 100ML BTL IV ONE ×2 (14:29→14:41)
[2019-11-01] MEDS ORDERED: NITROGLYCERIN 0.4MG/DOSE SPRAY 4.9GM ONE (14:45)
[2019-11-01] MEDS ORDERED: CLOPIDOGREL 300 MG TAB ONE (15:59)
[2019-11-01] MEDS ORDERED: ASPirin 325 MG TAB ONE (15:59)
[2019-11-01] MEDS ORDERED: SODIUM CHLORIDE 0.9% 1,000 ML IV SCH ×2 (16:36→17:13)
--- NOTE | 2019-11-01 17:00 | NUR ---
PT IN PROCEDURE FOR 1700 VITALS
[2019-11-01] MEDS: ATORVASTATIN 20 MG TAB PO SCH (21:43)
[2019-11-01 22:00] VITALS: BP 110/50
[2019-11-02 05:00] VITALS: BP 118/60
[2019-11-02 05:56] LABS: Basophils # (auto) 0.1 uL; Basophils % (auto) 0.5 % (0.0-2.0); Eosinophils # (auto) 0.3 uL; Eosinophils % (auto) 2.9 % (0.0-7.0); Hematocrit 32.5 % (36.0-46.0); Hemoglobin 11.1 g/dL (12.2-16.2); Lymphocytes # (auto) 1.4 uL; Lymphocytes % (auto) 12.2 % (10.0-50.0); Mean Corpuscular Hemoglobin 31.1 pg (28.0-32.0); Mean Corpuscular Hgb Conc. 34.3 g/dL (32.0-36.0); Mean Corpuscular Volume 90.9 fL (80.0-100.0); Monocytes # (auto) 0.9 uL; Neutrophils # (auto) 8.5 uL; Neutrophils % (auto) 76.4 % (37.0-80.0); Platelet Count (auto) 238 10^3/uL (140-450); Red Blood Cells 3.58 10^6/uL (4.0-5.20); Red Cell Distribution Width 14.3 % (11.8-14.3); White Blood Cell 11.2 10^3/uL (4.4-10.8)
[2019-11-02 06:14] LABS: Calcium 9.1 mg/dL (8.5-10.1); Potassium 4.9 mmol/L (3.5-5.1)
[2019-11-02 06:16] LABS: BUN/Creatinine Ratio 34.1
[2019-11-02] MEDS: InsuLIN REG 1unit/0.01ml Soln (100units/ml) SC SCH ×2 (06:35→11:44)
[2019-11-02] MEDS: ACCU-CHEK COMFORT CURVE STRIP VI SCH ×2 (06:36→11:44)
[2019-11-02] MEDS: CARVEDILOL 12.5 MG TAB PO SCH (07:55)
[2019-11-02 08:00] VITALS: BP 140/64
[2019-11-02 09:00] VITALS: BP 140/64
[2019-11-02] MEDS: ASPirin 81 mg TAB PO SCH (09:40)
[2019-11-02] MEDS: DOCUSATE SOD 100 MG CAP PO SCH (09:40)
[2019-11-02] MEDS: ISOSORBIDE MONONITRATE ER 60 MG TAB PO SCH (09:41)
[2019-11-02] MEDS: GABAPENTIN 300 MG CAP PO SCH (09:42)
[2019-11-02] MEDS ORDERED: CLOPIDOGREL BISULFATE 75 MG TAB PO SCH (10:00)
--- NOTE | 2019-11-02 12:55 | NUR ---
Nutrition Follow up Notes Wt: 70.0 kg Pt was sleeping with no family by bedside. per ercords pt s/p angio. pt with no distress noted per nursing. pt is currently on CCHO 45 gm cardiac with adequate PO of 75% x 5 per RN doc Est. Needs based on BW (70 kg): 2763-0660 kcal (20-23 kcal/kgBW), 56-70 gms pro (0.8-1.0 gms/kgBW r/t elev RFT CKD). Will continue to monitor pertinent labs and reassess nutrient need prn LABS: BUN 62 H, CREAT 1.82 H, GLU 157 H BS: 21 low risk skin intact per RN doc BM: pt had 2 BM yesterday per RN doc PES: Altered nutrition related lab values r/t current chronic medical condition aeb elev RFT A1C hyperglycemia, elev TG Comments: 1) resume diet as medically feasible. 2) refer to CDE oN DC. 3) continue current plan of care
--- NOTE | 2019-11-02 14:19 | NUR ---
DR TAHIR BARRIOS GAVE VERBAL CLEARANCE TO DISCHARGE HOME
--- NOTE | 2019-11-02 16:13 | NUR ---
PATIENT DISCHARGED HOME WITH FAMILY. TELEMETRY BOX REMOVED AND RETURNED TO TELEMETRY DEPARTMENT. ALL IV ACCESS DISCONTINUED. ALL DISCHARGE INSTRUCTIONS GIVEN. ALL DISCHARGE PAPERWORK SIGNED.
== END 2019-11-02 15:45 | disposition home or self-care (01) | DRG 246 ==
LOC: EDBD 23:40 → ER 23:42 → TELE 23:43 → TELE-WESTW 10-22 05:05
PROVIDERS: ADMIT Hospitalist; ATTEND Internal Medicine
PROC: 4A023N7 Measurement of Cardiac Sampling and Pressure, Left Heart, Percutaneous Approach (ICD-10-PCS; 2019-10-26)
PROC: B2111ZZ Fluoroscopy of Multiple Coronary Arteries using Low Osmolar Contrast (ICD-10-PCS; 2019-10-26)
PROC: B2151ZZ Fluoroscopy of Left Heart using Low Osmolar Contrast (ICD-10-PCS; 2019-10-26)
PROC: 027236Z Dilation of Coronary Artery, Three Arteries with Three Drug-eluting Intraluminal Devices, Percutaneous Approach (ICD-10-PCS; principal; 2019-11-01)
DX: T82.855A Stenosis of coronary artery stent, initial encounter (principal); I21.A1 Myocardial infarction type 2; I50.43 Acute on chronic combined systolic (congestive) and diastolic (congestive) heart failure; J96.00 Acute respiratory failure, unspecified whether with hypoxia or hypercapnia; I13.0 Hypertensive heart and chronic kidney disease with heart failure and stage 1 through stage 4 chronic kidney disease, or unspecified chronic kidney disease; E87.1 Hypo-osmolality and hyponatremia; N17.9 Acute kidney failure, unspecified; E11.51 Type 2 diabetes mellitus with diabetic peripheral angiopathy without gangrene; E11.22 Type 2 diabetes mellitus with diabetic chronic kidney disease; D64.9 Anemia, unspecified; E66.9 Obesity, unspecified; E87.5 Hyperkalemia; E78.5 Hyperlipidemia, unspecified; I25.5 Ischemic cardiomyopathy; I25.10 Atherosclerotic heart disease of native coronary artery without angina pectoris; T50.8X5A Adverse effect of diagnostic agents, initial encounter; E11.65 Type 2 diabetes mellitus with hyperglycemia; Y83.1 Surgical operation with implant of artificial internal device as the cause of abnormal reaction of the patient, or of later complication, without mention of misadventure at the time of the procedure; N18.3 Chronic kidney disease, stage 3 (moderate); N14.1 Nephropathy induced by other drugs, medicaments and biological substances; N87.9 Dysplasia of cervix uteri, unspecified; Y92.89 Other specified places as the place of occurrence of the external cause; Z79.02 Long term (current) use of antithrombotics/antiplatelets; Z83.3 Family history of diabetes mellitus; Z98.51 Tubal ligation status
CPT/HCPCS: 36415; 36600; 51702; 71045; 76775; 78452; 80048; 80053; 80061; 81001; 82570; 82805; 82962; 83036; 83735; 83880; 84100; 84300; 84443; 84484; 85025; 85379; 85610; 85730; 87086; 93005; 93017; 93306; 94640; 94660; 96372; 96374; 96375; 99152; 99153; 99291; C1874; G0378; J0153; J1815; J2250; J2405; Q9967

== ENCOUNTER 2020-03-29 23:54 | Inpatient (IN) | payer OTHER ==
[~2020-03-29] VITALS: Ht 152.4 cm; Wt 71.7 kg
[2020-03-30 00:52] LABS: Basophils # (auto) 0 10 ^3/uL (0-0.2); Basophils % (auto) 0.4 % (0.0-2.0); Eosinophils # (auto) 0.2 10 ^3/uL (0-0.8); Eosinophils % (auto) 1.6 % (0.0-7.0); Hematocrit 30.1 % (36.0-46.0); Hemoglobin 10.1 g/dL (12.2-16.2); Lymphocytes # (auto) 1.3 10 ^3/uL (0.4-5.4); Lymphocytes % (auto) 12.9 % (10.0-50.0); Mean Corpuscular Hemoglobin 31.4 pg (28.0-32.0); Mean Corpuscular Hgb Conc. 33.6 g/dL (32.0-36.0); Mean Corpuscular Volume 93.4 fL (80.0-100.0); Monocytes # (auto) 0.7 10 ^3/uL (0-1.3); Monocytes % (auto) 7.4 % (0.0-12.0); Neutrophils # (auto) 7.7 10 ^3/uL (1.6-8.6); Neutrophils % (auto) 77.7 % (37.0-80.0); Platelet Count (auto) 235 10^3/uL (140-450); Red Blood Cells 3.22 10^6/uL (4.0-5.20); Red Cell Distribution Width 12.7 % (11.8-14.3); White Blood Cell 9.9 10^3/uL (4.4-10.8)
[2020-03-30 01:06] LABS: INR 0.98 (0.9-1.15); Partial Thromboplastin Time 24.5 sec (23.64-32.05)
[2020-03-30 01:27] LABS: Albumin 3.3 g/dL (3.4-5.0); BUN/Creatinine Ratio 26.8; Calcium 8.5 mg/dL (8.5-10.1); Magnesium 2.4 mg/dL (1.6-2.6); Potassium 4.8 mmol/L (3.5-5.1)
[2020-03-30 01:32] LABS: Bilirubin, Total 0.3 mg/dL (0.2-1.0); Total Protein 7.9 g/dL (6.4-8.2)
[2020-03-30] MEDS ORDERED: ENOXAPARIN SOD 80 MG/0.8ML SYRINGE SC ONE (01:45)
[2020-03-30] MEDS ORDERED: SODIUM CHLORIDE 0.9% 500 ML IV ONE (01:45)
[2020-03-30] MEDS ORDERED: InsuLIN REG 1unit/0.01ml Soln (100units/ml) IV ONE (01:45)
[2020-03-30] MEDS ORDERED: DEXTROSE (50%) 50ML SYRG IV PRN (05:15)
[2020-03-30] MEDS ORDERED: DOCUSATE SOD 100 MG CAP PO PRN (05:15)
[2020-03-30] MEDS ORDERED: NITROGLYCERIN 0.4 MG SL TAB SL PRN (05:15)
[2020-03-30] MEDS ORDERED: MORPHINE SULF INJ 2 MG/ML SYRINGE 1ML IV PRN ×2 (05:15)
[2020-03-30] MEDS ORDERED: ACETAMINOPHEN 325 MG TAB PO PRN (05:15)
[2020-03-30] MEDS ORDERED: ONDANSETRON HCL 4 MG/2 ML VIAL IV PRN ×2 (05:15)
[2020-03-30] MEDS ORDERED: LORazepam 0.5 MG TAB PO PRN (05:15)
[2020-03-30] MEDS ORDERED: HYDROcodone-ACET 5/325MG TAB PO PRN (05:15)
[2020-03-30] MEDS: SODIUM CHLORIDE 0.9% 1,000 ML IV SCH ×2 (06:24→18:21)
[2020-03-30] MEDS: ACCU-CHEK COMFORT CURVE STRIP VI SCH ×4 (08:03→20:24)
[2020-03-30] MEDS: InsuLIN REG 1unit/0.01ml Soln (100units/ml) SC SCH ×4 (08:35→22:50)
[2020-03-30] MEDS: ASPirin 81 mg TAB PO SCH (09:52)
[2020-03-30] MEDS: DOCUSATE SOD 100 MG CAP PO SCH (09:53)
[2020-03-30] MEDS: CLOPIDOGREL BISULFATE 75 MG TAB PO SCH (09:54)
[2020-03-30] MEDS: LISINOPRIL 10 MG TAB PO SCH (09:54)
[2020-03-30] MEDS: ENOXAPARIN SOD 80 MG/0.8ML SYRINGE SC SCH ×2 (09:55→22:11)
[2020-03-30] MEDS: CARVEDILOL 3.125 MG TAB PO SCH ×2 (09:56→22:10)
[2020-03-30] MEDS ORDERED: SPIR25TA8 PO (10:46)
[2020-03-30] MEDS ORDERED: FURO20TA3 PO (10:46)
[2020-03-30] MEDS ORDERED: AMLO5TAB15 PO (10:46)
[2020-03-30] MEDS ORDERED: BENA-30 PO (10:46)
[2020-03-30] MEDS ORDERED: NITR0.4S29 SL (10:46)
[2020-03-30] MEDS ORDERED: ISOS30TA4 PO (10:46)
[2020-03-30] MEDS ORDERED: CLOP75TA41 PO (10:46)
[2020-03-30] MEDS ORDERED: ATOR1TAB PO (10:46)
[2020-03-30] MEDS ORDERED: INSLANTI SC (11:15)
[2020-03-30] MEDS ORDERED: INSLISPI SC (11:15)
[2020-03-30 13:00] VITALS: BP 169/69
[2020-03-30] MEDS: ACETAMINOPHEN 325 MG TAB PO PRN (16:43)
[2020-03-30 22:00] VITALS: BP 122/55
[2020-03-30] MEDS: ATORVASTATIN 20 MG TAB PO SCH (22:10)
[2020-03-31] MEDS: ACCU-CHEK COMFORT CURVE STRIP VI SCH ×6 (04:00→22:44)
[2020-03-31] MEDS: InsuLIN REG 1unit/0.01ml Soln (100units/ml) SC SCH ×6 (04:00→22:46)
[2020-03-31 05:29] VITALS: BP 120/64
[2020-03-31 06:55] LABS: Basophils # (auto) 0 10 ^3/uL (0-0.2); Basophils % (auto) 0.3 % (0.0-2.0); Eosinophils # (auto) 0.2 10 ^3/uL (0-0.8); Hematocrit 29.6 % (36.0-46.0); Hemoglobin 10.3 g/dL (12.2-16.2); Lymphocytes # (auto) 1.8 10 ^3/uL (0.4-5.4); Lymphocytes % (auto) 16.7 % (10.0-50.0); Mean Corpuscular Hemoglobin 32.4 pg (28.0-32.0); Mean Corpuscular Hgb Conc. 34.7 g/dL (32.0-36.0); Mean Corpuscular Volume 93.2 fL (80.0-100.0); Monocytes # (auto) 0.7 10 ^3/uL (0-1.3); Monocytes % (auto) 6.2 % (0.0-12.0); Neutrophils # (auto) 7.9 10 ^3/uL (1.6-8.6); Neutrophils % (auto) 74.8 % (37.0-80.0); Platelet Count (auto) 234 10^3/uL (140-450); Red Blood Cells 3.18 10^6/uL (4.0-5.20); Red Cell Distribution Width 12.7 % (11.8-14.3); White Blood Cell 10.6 10^3/uL (4.4-10.8)
[2020-03-31 07:12] LABS: BUN/Creatinine Ratio 22.3; Calcium 8.6 mg/dL (8.5-10.1); Potassium 4.6 mmol/L (3.5-5.1)
[2020-03-31] MEDS: ENOXAPARIN SOD 80 MG/0.8ML SYRINGE SC SCH ×2 (07:54→22:43)
[2020-03-31] MEDS: CARVEDILOL 3.125 MG TAB PO SCH ×2 (09:10→22:44)
[2020-03-31] MEDS: DOCUSATE SOD 100 MG CAP PO SCH (09:10)
[2020-03-31] MEDS: LISINOPRIL 10 MG TAB PO SCH (09:10)
[2020-03-31] MEDS: CLOPIDOGREL BISULFATE 75 MG TAB PO SCH (09:10)
[2020-03-31] MEDS: ASPirin 81 mg TAB PO SCH (09:10)
[2020-03-31] MEDS: SODIUM CHLORIDE 0.9% 1,000 ML IV SCH ×2 (09:29→22:54)
[2020-03-31 09:37] VITALS: BP 135/64
[2020-03-31 09:51] LABS: Urine Bacteria FEW /hpf (None Seen); Urine Blood Negative /uL (Negative); Urine Specific Gravity 1.012 (1.001-1.035); Urine WBC 37 /hpf (0 - 5); Urine WBC Clumps PRESENT /hpf (None Seen)
[2020-03-31] MEDS ORDERED: fentaNYL CITRATE 100 MCG/2 ML VL ONE (10:15)
[2020-03-31] MEDS ORDERED: MIDAZOLAM HCL 1MG/1ML-2 ML VIAL ONE (10:15)
[2020-03-31] MEDS ORDERED: ANGIOMAX 250 MG VIAL IV ONE (10:15)
[2020-03-31] MEDS ORDERED: SODIUM CHL 0.9% 0 ML ONE (10:15)
[2020-03-31] MEDS ORDERED: HEPARIN SODIUM (PORCINE) 5000 UNITS/ML 1ML VIAL ONE (10:15)
[2020-03-31] MEDS ORDERED: VERAPAMIL 2.5MG/ML INJ 2ML VIAL IV ONE (10:15)
[2020-03-31] MEDS ORDERED: LIDOCAINE 2%HCL (LOCAL ANESTH.) INJ 20ML MDV ONE (10:16)
[2020-03-31] MEDS ORDERED: IODIXANOL 320MG/ML 100ML BTL IV ONE (10:16)
[2020-03-31] MEDS ORDERED: cefTRIAXone 1GM/50ML D5W 50 ML IV ONE (14:30)
[2020-03-31] MEDS ORDERED: DEXTROSE (50%) 50ML SYRG IV PRN (14:30)
[2020-03-31 17:04] VITALS: BP 150/75
[2020-03-31 22:00] VITALS: BP 143/68
[2020-03-31] MEDS: ATORVASTATIN 20 MG TAB PO SCH (22:44)
[2020-04-01 05:00] VITALS: BP 138/63
[2020-04-01 05:40] LABS: Basophils # (auto) 0 10 ^3/uL (0-0.2); Basophils % (auto) 0.4 % (0.0-2.0); Eosinophils # (auto) 0.2 10 ^3/uL (0-0.8); Hemoglobin 9.6 g/dL (12.2-16.2); Lymphocytes # (auto) 1.5 10 ^3/uL (0.4-5.4); Lymphocytes % (auto) 17.7 % (10.0-50.0); Mean Corpuscular Hemoglobin 31.8 pg (28.0-32.0); Mean Corpuscular Hgb Conc. 34.2 g/dL (32.0-36.0); Mean Corpuscular Volume 93.1 fL (80.0-100.0); Monocytes # (auto) 0.7 10 ^3/uL (0-1.3); Monocytes % (auto) 8.4 % (0.0-12.0); Neutrophils # (auto) 6.1 10 ^3/uL (1.6-8.6); Neutrophils % (auto) 71.5 % (37.0-80.0); Platelet Count (auto) 211 10^3/uL (140-450); Red Blood Cells 3.01 10^6/uL (4.0-5.20); Red Cell Distribution Width 12.5 % (11.8-14.3); White Blood Cell 8.6 10^3/uL (4.4-10.8)
[2020-04-01 05:57] LABS: BUN/Creatinine Ratio 23.1; Calcium 8.3 mg/dL (8.5-10.1); Potassium 4.5 mmol/L (3.5-5.1)
[2020-04-01] MEDS: ACCU-CHEK COMFORT CURVE STRIP VI SCH ×4 (06:49→22:00)
[2020-04-01] MEDS: InsuLIN REG 1unit/0.01ml Soln (100units/ml) SC SCH ×4 (07:20→22:00)
[2020-04-01 09:00] VITALS: BP 143/66
[2020-04-01] MEDS: cefTRIAXone 1GM/50ML D5W 50 ML IV SCH (09:35)
[2020-04-01] MEDS: ENOXAPARIN SOD 80 MG/0.8ML SYRINGE SC SCH ×2 (09:37→22:39)
[2020-04-01] MEDS: DOCUSATE SOD 100 MG CAP PO SCH (09:38)
[2020-04-01] MEDS: CARVEDILOL 3.125 MG TAB PO SCH ×2 (09:39→22:42)
[2020-04-01] MEDS: amLODIPine BESYLATE 5 MG TAB PO SCH (09:39)
[2020-04-01] MEDS: SODIUM CHLORIDE 0.9% 1,000 ML IV SCH ×2 (12:36→22:41)
[2020-04-01 13:00] VITALS: BP 147/70
[2020-04-01 17:00] VITALS: BP 155/67
[2020-04-01 22:00] VITALS: BP 158/70
[2020-04-01] MEDS: ATORVASTATIN 20 MG TAB PO SCH (22:43)
[2020-04-02 05:04] VITALS: BP 122/62
[2020-04-02 05:33] LABS: Basophils # (auto) 0 10 ^3/uL (0-0.2); Basophils % (auto) 0.4 % (0.0-2.0); Eosinophils # (auto) 0.2 10 ^3/uL (0-0.8); Eosinophils % (auto) 1.5 % (0.0-7.0); Hematocrit 25.5 % (36.0-46.0); Hemoglobin 8.5 g/dL (12.2-16.2); Lymphocytes # (auto) 1.7 10 ^3/uL (0.4-5.4); Lymphocytes % (auto) 16.7 % (10.0-50.0); Mean Corpuscular Hemoglobin 32.2 pg (28.0-32.0); Mean Corpuscular Hgb Conc. 33.4 g/dL (32.0-36.0); Mean Corpuscular Volume 96.3 fL (80.0-100.0); Monocytes # (auto) 0.8 10 ^3/uL (0-1.3); Monocytes % (auto) 8.3 % (0.0-12.0); Neutrophils # (auto) 7.3 10 ^3/uL (1.6-8.6); Neutrophils % (auto) 73.1 % (37.0-80.0); Platelet Count (auto) 208 10^3/uL (140-450); Red Blood Cells 2.65 10^6/uL (4.0-5.20); Red Cell Distribution Width 12.6 % (11.8-14.3)
[2020-04-02] MEDS: ACCU-CHEK COMFORT CURVE STRIP VI SCH ×4 (05:34→22:00)
[2020-04-02] MEDS: InsuLIN REG 1unit/0.01ml Soln (100units/ml) SC SCH ×4 (05:35→22:00)
[2020-04-02 05:52] LABS: Potassium 4.7 mmol/L (3.5-5.1)
[2020-04-02 06:03] LABS: BUN/Creatinine Ratio 20.7
[2020-04-02 09:00] VITALS: BP 134/64
[2020-04-02] MEDS: ACETAMINOPHEN 325 MG TAB PO PRN (09:01)
[2020-04-02] MEDS: ENOXAPARIN SOD 80 MG/0.8ML SYRINGE SC SCH (09:01)
[2020-04-02] MEDS: cefTRIAXone 1GM/50ML D5W 50 ML IV SCH (09:01)
[2020-04-02] MEDS: CARVEDILOL 3.125 MG TAB PO SCH ×2 (09:02→22:34)
[2020-04-02] MEDS: amLODIPine BESYLATE 5 MG TAB PO SCH (09:02)
[2020-04-02] MEDS: DOCUSATE SOD 100 MG CAP PO SCH (09:02)
[2020-04-02 13:00] VITALS: BP 136/73
[2020-04-02] MEDS: SODIUM CHLORIDE 0.9% 1,000 ML IV SCH ×2 (13:01→15:25)
[2020-04-02 17:00] VITALS: BP 132/68
[2020-04-02] MEDS ORDERED: NITROGLYCERIN 50MG/250ML 250 ML IV SCH (20:15)
[2020-04-02] MEDS ORDERED: HEPARIN SODIUM (PORCINE) 5000 UNITS/ML 1ML VIAL IV ONE (22:00)
[2020-04-02 22:31] LABS: Basophils # (auto) 0 10 ^3/uL (0-0.2); Eosinophils # (auto) 0.2 10 ^3/uL (0-0.8); Neutrophils # (auto) 7.1 10 ^3/uL (1.6-8.6)
[2020-04-02 22:33] LABS: Basophils % (auto) 0.4 % (0.0-2.0); Eosinophils % (auto) 1.7 % (0.0-7.0); Hematocrit 24.4 % (36.0-46.0); Hemoglobin 8.2 g/dL (12.2-16.2); Lymphocytes # (auto) 1.7 10 ^3/uL (0.4-5.4); Lymphocytes % (auto) 17.4 % (10.0-50.0); Mean Corpuscular Hemoglobin 31.3 pg (28.0-32.0); Mean Corpuscular Hgb Conc. 33.8 g/dL (32.0-36.0); Mean Corpuscular Volume 92.6 fL (80.0-100.0); Monocytes # (auto) 0.7 10 ^3/uL (0-1.3); Monocytes % (auto) 7.3 % (0.0-12.0); Neutrophils % (auto) 73.2 % (37.0-80.0); Platelet Count (auto) 218 10^3/uL (140-450); Red Blood Cells 2.63 10^6/uL (4.0-5.20); Red Cell Distribution Width 12.4 % (11.8-14.3); White Blood Cell 9.7 10^3/uL (4.4-10.8)
[2020-04-02] MEDS: ATORVASTATIN 20 MG TAB PO SCH (22:33)
[2020-04-02 22:47] LABS: INR 0.99 (0.9-1.15); Partial Thromboplastin Time 33.1 sec (23.64-32.05)
[2020-04-02 23:00] VITALS: BP 156/68
[2020-04-02] MEDS: HEPARIN DRIP/D5W 100UNITS/ML 250 ML IV SCH (23:59)
[2020-04-03] VITALS (7 sets, daily range): BP systolic 132–162; BP diastolic 59–75
[2020-04-03] MEDS: SODIUM CHLORIDE 0.9% 1,000 ML IV SCH (01:07)
[2020-04-03] MEDS ORDERED: NITROGLYCERIN 0.4 MG SL TAB SL PRN (06:00)
[2020-04-03] MEDS: ACCU-CHEK COMFORT CURVE STRIP VI SCH ×4 (06:27→22:00)
[2020-04-03] MEDS: InsuLIN REG 1unit/0.01ml Soln (100units/ml) SC SCH ×4 (06:32→22:39)
[2020-04-03 06:43] LABS: INR 0.97 (0.9-1.15); Partial Thromboplastin Time 39.8 sec (23.64-32.05)
[2020-04-03] MEDS: cefTRIAXone 1GM/50ML D5W 50 ML IV SCH (09:37)
[2020-04-03] MEDS: DOCUSATE SOD 100 MG CAP PO SCH (09:37)
[2020-04-03] MEDS: CARVEDILOL 3.125 MG TAB PO SCH ×2 (09:37→22:33)
[2020-04-03] MEDS: amLODIPine BESYLATE 5 MG TAB PO SCH (09:38)
[2020-04-03 13:15] LABS: INR 0.99 (0.9-1.15); Partial Thromboplastin Time 37.9 sec (23.64-32.05)
[2020-04-03 19:53] LABS: INR 0.99 (0.9-1.15); Partial Thromboplastin Time 42.8 sec (23.64-32.05)
[2020-04-03] MEDS: ATORVASTATIN 20 MG TAB PO SCH (22:32)
[2020-04-04] VITALS: BP 146/59
[2020-04-04] MEDS: HEPARIN DRIP/D5W 100UNITS/ML 250 ML IV SCH (01:50)
[2020-04-04 02:45] LABS: Basophils # (auto) 0.1 10 ^3/uL (0-0.2); Hemoglobin 8.2 g/dL (12.2-16.2); Lymphocytes # (auto) 2.2 10 ^3/uL (0.4-5.4); Monocytes # (auto) 0.7 10 ^3/uL (0-1.3)
[2020-04-04 02:47] LABS: Basophils % (auto) 1.1 % (0.0-2.0); Eosinophils # (auto) 0.4 10 ^3/uL (0-0.8); Eosinophils % (auto) 3.6 % (0.0-7.0); Hematocrit 24.1 % (36.0-46.0); Mean Corpuscular Hemoglobin 31.7 pg (28.0-32.0); Mean Corpuscular Hgb Conc. 34.2 g/dL (32.0-36.0); Mean Corpuscular Volume 92.7 fL (80.0-100.0); Monocytes % (auto) 6.5 % (0.0-12.0); Neutrophils # (auto) 7.1 10 ^3/uL (1.6-8.6); Neutrophils % (auto) 67.8 % (37.0-80.0); Nucleated Red Blood Cells % 0.1 %; Platelet Count (auto) 233 10^3/uL (140-450); Red Cell Distribution Width 12.3 % (11.8-14.3); White Blood Cell 10.4 10^3/uL (4.4-10.8)
[2020-04-04 02:58] LABS: Partial Thromboplastin Time 53.6 sec (23.64-32.05)
[2020-04-04 03:08] LABS: BUN/Creatinine Ratio 16.9; Calcium 8.3 mg/dL (8.5-10.1); Potassium 4.5 mmol/L (3.5-5.1)
[2020-04-04 04:00] VITALS: BP 141/61
[2020-04-04] MEDS: ACCU-CHEK COMFORT CURVE STRIP VI SCH ×4 (06:31→22:07)
[2020-04-04] MEDS: InsuLIN REG 1unit/0.01ml Soln (100units/ml) SC SCH ×5 (06:31→22:09)
[2020-04-04 07:40] VITALS: BP 136/56
[2020-04-04] MEDS: cefTRIAXone 1GM/50ML D5W 50 ML IV SCH (08:59)
[2020-04-04] MEDS: SODIUM CHLORIDE 0.9% 1,000 ML IV SCH (08:59)
[2020-04-04] MEDS: amLODIPine BESYLATE 5 MG TAB PO SCH (09:32)
[2020-04-04] MEDS: CARVEDILOL 3.125 MG TAB PO SCH ×2 (09:34→22:07)
[2020-04-04] MEDS: DOCUSATE SOD 100 MG CAP PO SCH (10:00)
[2020-04-04 11:40] VITALS: BP 131/54
[2020-04-04] MEDS ORDERED: LIDOCAINE 2%HCL (LOCAL ANESTH.) INJ 20ML MDV ONE (13:55)
[2020-04-04] MEDS ORDERED: ANGIOMAX 250 MG VIAL IV ONE (13:56)
[2020-04-04] MEDS ORDERED: fentaNYL CITRATE 100 MCG/2 ML VL ONE (13:57)
[2020-04-04] MEDS ORDERED: SODIUM CHL 0.9% 50 ML ONE (13:57)
[2020-04-04] MEDS ORDERED: MIDAZOLAM HCL 1MG/1ML-2 ML VIAL ONE (13:57)
[2020-04-04] MEDS ORDERED: IODIXANOL 320MG/ML 100ML BTL IV ONE (14:35)
[2020-04-04] MEDS ORDERED: ASPirin 325 MG TAB ONE (14:58)
[2020-04-04] MEDS ORDERED: TICAGRELOR 90 MG TAB ONE (14:58)
[2020-04-04 15:40] VITALS: BP 147/57
[2020-04-04 20:26] VITALS: BP 147/49
[2020-04-04] MEDS: ATORVASTATIN 20 MG TAB PO SCH (22:07)
[2020-04-05 00:01] VITALS: BP 148/67
[2020-04-05] MEDS: SODIUM CHLORIDE 0.9% 1,000 ML IV SCH (01:25)
[2020-04-05 04:01] VITALS: BP 144/61
[2020-04-05] MEDS: ACCU-CHEK COMFORT CURVE STRIP VI SCH ×4 (06:30→21:05)
[2020-04-05] MEDS: InsuLIN REG 1unit/0.01ml Soln (100units/ml) SC SCH ×4 (06:37→21:06)
[2020-04-05 07:45] LABS: Albumin 2.3 g/dL (3.4-5.0); Calcium 8.3 mg/dL (8.5-10.1); Potassium 4.1 mmol/L (3.5-5.1)
[2020-04-05 07:51] LABS: Bilirubin, Total 0.3 mg/dL (0.2-1.0); Total Protein 6.8 g/dL (6.4-8.2)
[2020-04-05 07:59] VITALS: BP 140/62
[2020-04-05] MEDS: CARVEDILOL 3.125 MG TAB PO SCH ×2 (09:41→21:04)
[2020-04-05] MEDS: DOCUSATE SOD 100 MG CAP PO SCH (09:41)
[2020-04-05] MEDS: ASPirin 81 mg TAB PO SCH (09:41)
[2020-04-05] MEDS: cefTRIAXone 1GM/50ML D5W 50 ML IV SCH (09:42)
[2020-04-05] MEDS: amLODIPine BESYLATE 5 MG TAB PO SCH (09:43)
[2020-04-05] MEDS: CLOPIDOGREL BISULFATE 75 MG TAB PO SCH (09:43)
[2020-04-05 11:40] VITALS: BP 141/64
[2020-04-05 15:50] VITALS: BP 138/58
[2020-04-05 21:00] VITALS: BP 137/65
[2020-04-05] MEDS: ATORVASTATIN 20 MG TAB PO SCH (21:04)
[2020-04-06 05:00] VITALS: BP 146/68
[2020-04-06] MEDS: ACCU-CHEK COMFORT CURVE STRIP VI SCH ×4 (06:35→21:14)
[2020-04-06] MEDS: InsuLIN REG 1unit/0.01ml Soln (100units/ml) SC SCH ×4 (06:36→21:16)
[2020-04-06 09:00] VITALS: BP 151/51
[2020-04-06] MEDS: cefTRIAXone 1GM/50ML D5W 50 ML IV SCH (09:00)
[2020-04-06] MEDS: amLODIPine BESYLATE 5 MG TAB PO SCH (10:31)
[2020-04-06] MEDS: DOCUSATE SOD 100 MG CAP PO SCH (10:31)
[2020-04-06] MEDS: ASPirin 81 mg TAB PO SCH (10:32)
[2020-04-06] MEDS: CARVEDILOL 3.125 MG TAB PO SCH ×2 (10:32→21:25)
[2020-04-06] MEDS: CLOPIDOGREL BISULFATE 75 MG TAB PO SCH (10:32)
[2020-04-06 13:00] VITALS: BP 155/64
[2020-04-06 17:00] VITALS: BP 153/69
[2020-04-06] MEDS: ATORVASTATIN 20 MG TAB PO SCH (21:14)
[2020-04-06 22:00] VITALS: BP 146/69
[2020-04-07 05:53] VITALS: BP 127/67
[2020-04-07] MEDS: InsuLIN REG 1unit/0.01ml Soln (100units/ml) SC SCH ×2 (05:59→11:45)
[2020-04-07] MEDS: ACCU-CHEK COMFORT CURVE STRIP VI SCH ×2 (06:04→11:46)
[2020-04-07 09:00] VITALS: BP 147/66
[2020-04-07] MEDS: CLOPIDOGREL BISULFATE 75 MG TAB PO SCH (10:02)
[2020-04-07] MEDS: amLODIPine BESYLATE 5 MG TAB PO SCH (10:02)
[2020-04-07] MEDS: CARVEDILOL 3.125 MG TAB PO SCH (10:02)
[2020-04-07] MEDS: ASPirin 81 mg TAB PO SCH (10:02)
[2020-04-07] MEDS: DOCUSATE SOD 100 MG CAP PO SCH (10:02)
[2020-04-07] MEDS: cefTRIAXone 1GM/50ML D5W 50 ML IV SCH (10:03)
[2020-04-07 10:36] VITALS: BP 147/66
== END 2020-04-07 12:57 | disposition home or self-care (01) | DRG 246 ==
LOC: EDBD 23:54 → EDUNIT# 23:58 → ER 23:58 → TELE 23:59 → TELE-WESTW 03-30 10:15 → DOU IN ICU 04-02 22:55 → TELE-CENTR 04-05 19:00
PROVIDERS: ADMIT Hospitalist; ATTEND Internal Medicine
PROC: 4A023N7 Measurement of Cardiac Sampling and Pressure, Left Heart, Percutaneous Approach (ICD-10-PCS; principal; 2020-03-31)
PROC: 02C13ZZ Extirpation of Matter from Coronary Artery, Two Arteries, Percutaneous Approach (ICD-10-PCS; 2020-03-31)
PROC: B211YZZ Fluoroscopy of Multiple Coronary Arteries using Other Contrast (ICD-10-PCS; 2020-03-31)
PROC: B215YZZ Fluoroscopy of Left Heart using Other Contrast (ICD-10-PCS; 2020-03-31)
PROC: 027135Z Dilation of Coronary Artery, Two Arteries with Two Drug-eluting Intraluminal Devices, Percutaneous Approach (ICD-10-PCS; 2020-04-04)
DX: T82.858A Stenosis of other vascular prosthetic devices, implants and grafts, initial encounter (principal); I21.4 Non-ST elevation (NSTEMI) myocardial infarction; E87.1 Hypo-osmolality and hyponatremia; I50.42 Chronic combined systolic (congestive) and diastolic (congestive) heart failure; J98.11 Atelectasis; N39.0 Urinary tract infection, site not specified; D63.8 Anemia in other chronic diseases classified elsewhere; E11.21 Type 2 diabetes mellitus with diabetic nephropathy; E66.01 Morbid (severe) obesity due to excess calories; E78.5 Hyperlipidemia, unspecified; I11.0 Hypertensive heart disease with heart failure; I25.10 Atherosclerotic heart disease of native coronary artery without angina pectoris; E11.65 Type 2 diabetes mellitus with hyperglycemia; H53.8 Other visual disturbances; E11.51 Type 2 diabetes mellitus with diabetic peripheral angiopathy without gangrene; Y84.0 Cardiac catheterization as the cause of abnormal reaction of the patient, or of later complication, without mention of misadventure at the time of the procedure; Z79.4 Long term (current) use of insulin; Z79.82 Long term (current) use of aspirin; Z83.3 Family history of diabetes mellitus; Z87.442 Personal history of urinary calculi; Y92.89 Other specified places as the place of occurrence of the external cause
CPT/HCPCS: 36415; 36600; 70450; 71045; 78582; 80048; 80053; 81001; 82805; 82962; 83036; 83735; 83880; 84443; 84484; 85025; 85379; 85610; 85730; 87081; 87086; 87088; 87186; 92933; 93005; 93306; 93458; 93886; 93970; 96361; 96372; 99152; 99153; C1874; C1887; G0378; J0696; J1815; J2250; Q9967

== ENCOUNTER 2020-04-25 16:22 | Inpatient (IN) | payer OTHER ==
[~2020-04-25] VITALS: Ht 147.3 cm; Wt 67.9 kg
[~2020-04-25 16:22] MED LIST changes: +ATOR1TAB PO; +BENA-30 PO; +CLOP75TA41 PO; +FURO20TA3 PO; +INSLANTI SC; +INSLISPI SC; +ISOS30TA4 PO; +NITR0.4S29 SL; +SPIR25TA8 PO
[2020-04-25] MEDS ORDERED: SODIUM CHLORIDE 0.9% 1,000 ML IV ONE ×2 (16:32→22:52)
[2020-04-25] MEDS ORDERED: PIPERACILLIN-TAZOB 3.375GM 100 ML IV ONE (16:45)
[2020-04-25 18:34] LABS: Eosinophils # (auto) 0.1 10 ^3/uL (0-0.8); Lymphocytes # (auto) 1.2 10 ^3/uL (0.4-5.4); Lymphocytes % (auto) 7.9 % (10.0-50.0); Monocytes # (auto) 1.1 10 ^3/uL (0-1.3); Monocytes % (auto) 6.9 % (0.0-12.0); Neutrophils % (auto) 84.2 % (37.0-80.0)
[2020-04-25 18:36] LABS: Basophils # (auto) 0.1 10 ^3/uL (0-0.2); Basophils % (auto) 0.4 % (0.0-2.0); Eosinophils % (auto) 0.6 % (0.0-7.0); Hematocrit 23.6 % (36.0-46.0); Mean Corpuscular Volume 91.2 fL (80.0-100.0); Platelet Count (auto) 335 10^3/uL (140-450); Red Blood Cells 2.59 10^6/uL (4.0-5.20); White Blood Cell 15.5 10^3/uL (4.4-10.8)
[2020-04-25 18:46] LABS: INR 0.99 (0.9-1.15); Partial Thromboplastin Time 26.2 sec (23.64-32.05)
[2020-04-25 18:55] LABS: Albumin 2.8 g/dL (3.4-5.0); Anion Gap 9 (5-15); Blood Urea Nitrogen 39 mg/dL (7-18); Carbon Dioxide 21 mmol/L (21-32); Chloride 102 mmol/L (98-107); Glucose 96 mg/dL (74-106); Potassium 4.5 mmol/L (3.5-5.1); Sodium 132 mmol/L (136-145)
[2020-04-25 19:01] LABS: Alanine Aminotransferase 13 U/L (13-56); Alkaline Phosphatase 103 U/L (45-117); Aspartate Aminotransferase 9 U/L (15-37); BUN/Creatinine Ratio 17.6; Bilirubin, Total 0.3 mg/dL (0.2-1.0); GFR African American 29 mL/min; GFR Non-African American 24 mL/min; Total Protein 8.9 g/dL (6.4-8.2)
[2020-04-25] MEDS ORDERED: NITROGLYCERIN 0.4 MG SL TAB SL PRN (21:15)
[2020-04-25] MEDS ORDERED: MORPHINE SULF INJ 2 MG/ML SYRINGE 1ML IV PRN (21:15)
[2020-04-25] MEDS ORDERED: FUROSEMIDE 20 MG/2 ML VIAL IV ONE (23:00)
[2020-04-25] MEDS ORDERED: VANCOMYCIN PER PHARMACY 1,000 MG IV SCH (23:00)
[2020-04-25] MEDS ORDERED: LORazepam 2MG/ML-1ML VIAL IV PRN (23:00)
[2020-04-25] MEDS ORDERED: DEXTROSE (50%) 50ML SYRG IV PRN (23:15)
[2020-04-25] MEDS ORDERED: VANCOMYCIN 1GM/250ML 250 ML IV ONE (23:30)
[2020-04-26] MEDS: CARVEDILOL 3.125 MG TAB PO SCH ×3 (00:37→21:31)
[2020-04-26] MEDS: ATORVASTATIN 20 MG TAB PO SCH ×2 (00:38→21:31)
[2020-04-26] MEDS: SACUBITRIL-VALSARTAN 24mg/26mg TAB PO SCH ×3 (00:38→21:31)
[2020-04-26] MEDS: SODIUM CHLORIDE 0.9% 1,000 ML IV SCH ×2 (00:39→12:20)
[2020-04-26] MEDS ORDERED: VANCOMYCIN 1GM/250ML 250 ML IV ONE (03:00)
[2020-04-26 03:22] LABS: Urine Bacteria MANY /hpf (None Seen); Urine Blood TRACE /uL (Negative); Urine Budding Yeast MODERATE /hpf (None Seen); Urine Hyaline Cast MANY /lpf (0 - 2); Urine Mucus FEW (None Seen); Urine Specific Gravity 1.011 (1.001-1.035); Urine WBC 170 /hpf (0 - 5); Urine WBC Clumps PRESENT /hpf (None Seen)
[2020-04-26] MEDS: PIPERACILLIN-TAZOB 3.375GM 3.375 GM in D5W 5% 100 ML IV SCH ×4 (06:54→12:00)
[2020-04-26] MEDS: FUROSEMIDE 20 MG/2 ML VIAL IV SCH ×2 (06:54→18:26)
[2020-04-26] MEDS: ACCU-CHEK COMFORT CURVE STRIP VI SCH ×4 (07:45→21:31)
[2020-04-26] MEDS: InsuLIN REG 1unit/0.01ml Soln (100units/ml) SC SCH ×4 (07:49→21:34)
[2020-04-26 08:48] LABS: Basophils # (auto) 0 10 ^3/uL (0-0.2); Eosinophils # (auto) 0.1 10 ^3/uL (0-0.8); Eosinophils % (auto) 0.9 % (0.0-7.0); Hemoglobin 7.5 g/dL (12.2-16.2); Lymphocytes # (auto) 1.1 10 ^3/uL (0.4-5.4); Monocytes # (auto) 0.8 10 ^3/uL (0-1.3); Monocytes % (auto) 7.3 % (0.0-12.0); Neutrophils # (auto) 9.5 10 ^3/uL (1.6-8.6)
[2020-04-26 08:51] LABS: Basophils % (auto) 0.3 % (0.0-2.0); Hematocrit 22.5 % (36.0-46.0); Lymphocytes % (auto) 9.4 % (10.0-50.0); Mean Corpuscular Hemoglobin 30.2 pg (28.0-32.0); Mean Corpuscular Hgb Conc. 33.3 g/dL (32.0-36.0); Mean Corpuscular Volume 90.6 fL (80.0-100.0); Neutrophils % (auto) 82.1 % (37.0-80.0); Platelet Count (auto) 286 10^3/uL (140-450); Red Blood Cells 2.49 10^6/uL (4.0-5.20); Red Cell Distribution Width 12.5 % (11.8-14.3); White Blood Cell 11.6 10^3/uL (4.4-10.8)
[2020-04-26 09:03] LABS: INR 1.03 (0.9-1.15); Partial Thromboplastin Time 28.8 sec (23.64-32.05)
[2020-04-26 09:13] LABS: Potassium 4.6 mmol/L (3.5-5.1)
[2020-04-26 09:24] LABS: Albumin 2.4 g/dL (3.4-5.0); BUN/Creatinine Ratio 18.9; Bilirubin, Total 0.3 mg/dL (0.2-1.0); Calcium 8.5 mg/dL (8.5-10.1); Magnesium 2.6 mg/dL (1.6-2.6); Phosphorus 3.4 mg/dL (2.5-4.90); Total Protein 7.5 g/dL (6.4-8.2)
[2020-04-26] MEDS: ASPirin 81 mg TAB PO SCH (10:14)
[2020-04-26] MEDS: CLOPIDOGREL BISULFATE 75 MG TAB PO SCH (10:15)
[2020-04-26 13:00] VITALS: BP 122/54
[2020-04-26 16:42] LABS: Protein, Urine 139.5 mg/dL (0.0-11.9)
[2020-04-26 16:51] VITALS: BP 128/61
[2020-04-26] MEDS: PIPERACILLIN-TAZOB 3.375GM 100 ML IV SCH ×2 (18:26→23:35)
--- NOTE | 2020-04-26 20:00 | NUR ---
Opening Shift Note Assumed care of patient, awake and alert. No S/S of distress/SOB or pain. Instructed on POC and to call for assist PRN, will continue to monitor for changes Q1hr and PRN. Dressing applied to patient's right foot. Wound photo taken at this time as well.
[2020-04-26] MEDS: ACETAMINOPHEN 325 MG TAB PO PRN (21:32)
[2020-04-26 22:00] VITALS: BP 143/60
[2020-04-27] MEDS: SODIUM CHLORIDE 0.9% 1,000 ML IV SCH ×2 (01:40→15:00)
[2020-04-27] MEDS: FUROSEMIDE 20 MG/2 ML VIAL IV SCH ×2 (05:07→17:19)
[2020-04-27] MEDS: PIPERACILLIN-TAZOB 3.375GM 100 ML IV SCH ×2 (05:22→12:03)
[2020-04-27 05:24] VITALS: BP 112/55
[2020-04-27] MEDS: ACCU-CHEK COMFORT CURVE STRIP VI SCH ×4 (06:19→21:14)
[2020-04-27] MEDS: InsuLIN REG 1unit/0.01ml Soln (100units/ml) SC SCH ×4 (06:21→21:14)
[2020-04-27 07:03] LABS: Potassium 4.4 mmol/L (3.5-5.1)
[2020-04-27 07:16] LABS: Albumin 2.3 g/dL (3.4-5.0); BUN/Creatinine Ratio 20.7; Bilirubin, Total 0.3 mg/dL (0.2-1.0); Calcium 8.6 mg/dL (8.5-10.1); Total Protein 7.4 g/dL (6.4-8.2); Uric Acid 6.9 mg/dL (2.6-6.0)
[2020-04-27 07:30] VITALS: BP 147/54
--- NOTE | 2020-04-27 07:50 | NUR ---
Opening Note Assumed pt care from NOC RN. Pt is a/ox4 with no s/s of distress or SOB. Pt is currently sitting upright in bed with no complaints att his time. Discussed POC with pt; pt verbalized understanding. Podiatry consult still pending. Safety measures maintained with call light within reach, bed in lowest position and side rails up. Will continue to monitor.
[2020-04-27] MEDS: ASPirin 81 mg TAB PO SCH (08:51)
[2020-04-27] MEDS: CARVEDILOL 3.125 MG TAB PO SCH ×2 (08:52→21:14)
[2020-04-27] MEDS: CLOPIDOGREL BISULFATE 75 MG TAB PO SCH (08:52)
[2020-04-27] MEDS: SACUBITRIL-VALSARTAN 24mg/26mg TAB PO SCH ×2 (08:52→21:14)
--- NOTE | 2020-04-27 09:49 | NUR ---
DAY CARE SUPERVISOR Nur at Bedside Updated on pt's status. Per DAY CARE SUPERVISOR, will wait for podiatry recommendation. No new orders at this time. Will continue to monitor.
--- NOTE | 2020-04-27 10:30 | NUR ---
Dr Mora at Bedside MD to see pt. Discussed POC and pending Podiatry consult. MD requested that we complete a wound culture on wound. Will implement and continue to monitor.
--- NOTE | 2020-04-27 10:30 | NUR ---
WOUND CARE NOTE: IN TO SEE PATIENT AT THIS TIME PER WOUND CARE CONSULT REQUEST. 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 CURRENT JADEN SCORE IS 18. PATIENT IS ABLE TO SELF TURN/REPOSITION. WOUND PHOTO TAKEN AT TIME OF ADMIT BY BEDSIDE NURSE FOR REFERENCE. WOUND APPEARS OBVIOUSLY INFECTED, MEASURES 1 X 1 X 4 CM. WOUND IS BOGGY, FILLED WITH YELLOW STRINGY SLOUGH. BONE IS PALPABLE. PATIENT HAS NEUROPATHY, NO SENSATION TO FOOT UPON PROBING. SEROUS DRAINAGE NOTED WITH MILD ODOR. OBTAINED WOUND CULTURE PER MD ORDER, UTILIZING THE MATTHEWS TECHNIQUE. BEDSIDE NURSE SENT OFF TO LAB FOR PROCESSING. APPLIED OPTIFOAM AG/KERLIX WRAP. ELEVATED FOOT UP ONTO PILLOWS FOR EDEMA CONTROL. OF NOTE: PATIENT HAS PODIATRY CONSULT PENDING WITH DR. DAMICO. WILL DEFER ALL WOUND RECOMMENDATIONS TO PODIATRY AT THIS POINT. RECOMMEND: TEMPORARY DAILY DRESSING CHANGE WITH OPTIFOAM AG, KERLIX WRAP UNTIL DR. DAMICO CONSULTS WITH PATIENT. NO FURTHER WOUND CARE NEEDED AFTER PODIATRY TAKES OVER. WOUND CARE TEAM WILL CONTINUE TO MONITOR UNTIL THEN. Addendum: 04/27/20 at 1631 by Ame Coe RN Amended: Links added.
--- NOTE | 2020-04-27 10:42 | NUR ---
Wound Care and Culture Wound care provided with the aboriginal education teacherDagmar. Culture collected at this time. Sent to lab.
[2020-04-27] MEDS ORDERED: VANCOMYCIN 1GM/250ML 250 ML IV ONE (11:00)
--- NOTE | 2020-04-27 11:06 | NUR ---
Elevated Blood Sugar BS of 412 obtained. Rechecked again, currently 391. Will provide insulin per protocol. Pt is asymptomatic. Will continue to monitor.
[2020-04-27 12:30] VITALS: BP 134/66
[2020-04-27 16:56] VITALS: BP 129/61
--- NOTE | 2020-04-27 16:58 | NUR ---
Elevated Blood Sugar BS at 470, rechecked, 471. Provided 10 U per mild sliding scale. Paged club concierge hospitalist. Pt is asymptomatic.
[2020-04-27] MEDS: PIPERACILLIN-TAZOB 2.25GM 50 ML IV SCH (17:19)
--- NOTE | 2020-04-27 19:30 | NUR ---
Opening Shift Note Assumed care of patient, awake and alert. No S/S of distress/SOB or pain. Instructed on POC and to call for assist PRN, will continue to monitor for changes Q1hr and PRN.
[2020-04-27 20:00] VITALS: BP 144/65
[2020-04-27] MEDS: ACETAMINOPHEN 325 MG TAB PO PRN (21:14)
[2020-04-27] MEDS: ATORVASTATIN 20 MG TAB PO SCH (21:14)
[2020-04-27 22:00] VITALS: BP 144/65
--- NOTE | 2020-04-27 22:10 | NUR ---
Critical BS Dr. Virk made aware of patient's critical blood sugar 431. Dr. Virk ordered for patient to be on an aggressive scale blood sugar scale and for blood sugar to be check q4hrs. 10 units of regular insulin to be given once, 30 units of Lantus once, and 30 units of Lantus AC and HS. Orders repeated to verify.
[2020-04-27] MEDS ORDERED: INSULIN LANTUS (GLARGINE) 1 /0.01ml (100units/ml) SC ONE (22:45)
[2020-04-27] MEDS ORDERED: InsuLIN REG 1unit/0.01ml Soln (100units/ml) SC ONE (22:45)
[2020-04-27] MEDS ORDERED: DEXTROSE (50%) 50ML SYRG IV PRN (22:45)
[2020-04-28] MEDS: PIPERACILLIN-TAZOB 2.25GM 50 ML IV SCH ×4 (00:18→18:04)
[2020-04-28] MEDS: ACCU-CHEK COMFORT CURVE STRIP VI SCH ×6 (00:26→20:08)
[2020-04-28] MEDS: InsuLIN REG 1unit/0.01ml Soln (100units/ml) SC SCH ×6 (00:26→20:08)
[2020-04-28] MEDS: SODIUM CHLORIDE 0.9% 1,000 ML IV SCH ×2 (04:20→17:40)
[2020-04-28 05:10] VITALS: BP 120/55
[2020-04-28] MEDS: FUROSEMIDE 20 MG/2 ML VIAL IV SCH ×3 (06:04→10:00)
[2020-04-28 06:39] LABS: Potassium 4.3 mmol/L (3.5-5.1)
[2020-04-28 06:52] LABS: Albumin 2.2 g/dL (3.4-5.0); BUN/Creatinine Ratio 21.7; Bilirubin, Total 0.2 mg/dL (0.2-1.0); Calcium 8.6 mg/dL (8.5-10.1); Total Protein 7.6 g/dL (6.4-8.2)
[2020-04-28 08:00] VITALS: BP 120/55
--- NOTE | 2020-04-28 08:00 | NUR ---
ASSESSMENT NOTE PT IS ALERT ORIENTED X, SITTING AT THE SIDE OF THE BED, NO DISTRESS NOTED, DRY CLEAN DRESSING NOTED AT THE RT FOOT, PT HAS ZOLL VEST ON, ABLE TO IDENTIFY HER NEEDS, SELF REPOSITION NEEDED, PAIN 0/10 AT THIS TIME, CALL LIGHT WITHIN REACH
[2020-04-28 09:00] VITALS: BP 117/61
[2020-04-28] MEDS: SACUBITRIL-VALSARTAN 24mg/26mg TAB PO SCH ×2 (09:18→21:44)
[2020-04-28] MEDS: ASPirin 81 mg TAB PO SCH (09:18)
[2020-04-28] MEDS: CLOPIDOGREL BISULFATE 75 MG TAB PO SCH (09:19)
[2020-04-28] MEDS: CARVEDILOL 3.125 MG TAB PO SCH ×2 (09:20→21:44)
[2020-04-28] MEDS: INSULIN LANTUS (GLARGINE) 1 /0.01ml (100units/ml) SC SCH ×2 (09:21→22:03)
--- NOTE | 2020-04-28 09:30 | NUR ---
WALKER ALL AROUND GEAR MACHINE OPERATOR AT BED SIDE FOLLOWING UP ON PT, SAID THAT WE ARE AWAITING FOR DR MANJARREZ, TO COME AND SEE PT, THEN THEY PROCEED
--- NOTE | 2020-04-28 12:17 | NUR ---
Nutrition consult/assessment Note please see attached link for complete assessment Est energy needs ABW 57 [id number] kcal (23-25 kcal/kg BW) Est protein needs: 45-57g (0.8-1g/kg BW r/t elev RFT hypoalb wounds) Will reassess prn. Addendum: 04/28/20 at [address] Amended: Links added.
--- NOTE | 2020-04-28 12:25 | NUR ---
DR Sam HALL AT BED SIDE FOLLOWING UP ON PT
--- NOTE | 2020-04-28 12:37 | NUR ---
DR STAPLES / HYBRID CORN BREEDER AT BED SIDE WITH A DRESSING CHANGE AND WOUND ASSESSMENT
[2020-04-28 13:00] VITALS: BP 118/67
--- NOTE | 2020-04-28 14:50 | NUR ---
IV removal IV DC'd with sterile technique FROM RT FOREARM AFTER START LEAKING, catheter fully intact. Pressure dressing applied to site. Patient tolerated procedure well. Discharged with aftercare instructions per MD. NOTE:
--- NOTE | 2020-04-28 14:59 | NUR ---
SOCIAL SERVICE CONSULT POLISHER BALANCE SCREWHEAD SPOKE WITH PT PER INITIAL ASSESSMENT. PT IS A 64 YR OLD MALAGASY SPEAKING FEMALE ADMITTED FOR RT FOOT DIABETIC ULCER, PENDING RIGHT FOOT SURGERY 04/30. PT WAS A/A/OX4, RECEPTIVE TO SS VISIT, EUTHYMIC MOOD WITH CONGRUENT AFFECT. PT HAD A RIGHT TOE AMPUTATION 2 YRS AGO THAT REMAINED INFECTED, SHE WAS BIB FAMILY TO ED AFTER HER FOOT BECAME SWOLLEN. PRIOR TO ADMISSION, PT WAS INDEPENDENT WITH ADL'S. SHE HAS A CANE TO USE NEEDED. PT RESIDES WITH HER SPOUSE CRISSY [phone], SON CRISSY HARRIS AND HER GRANDSON. FAMILY IS SUPPORTIVE AND ATTENTIVE, THEY ARE ABLE TO ASSIST PT AT HOME UPON DC. PT'S PCP IS DR. CABRERA. SHE HAS NO AHCD OR POA, POLISHER BALANCE SCREWHEAD PROVIDED AHCD INFORMATION AND FORMS. PLAN IS FOR PT TO DC HOME WITH FAMILY AND HOME HEALTH, F/U AT [facility] POST SURGERY. NO OTHER SS NEEDS, SS TO REMAIN AVAILABLE NEEDED. Addendum: 04/28/20 at 1505 by GAY SILVA SS Amended: Links added.
--- NOTE | 2020-04-28 15:02 | NUR ---
IV insertion IV access obtained, via clean sterile technique by inserting 22 gauge catheter at after attempt(s). IV secured properly. No trauma to site. Patient tolerated procedure well.
[2020-04-28] MEDS ORDERED: VANCOMYCIN 750mg/250ml 250 ML IV ONE (16:00)
[2020-04-28 17:00] VITALS: BP 141/67
--- NOTE | 2020-04-28 18:45 | NUR ---
PT CONTINUE STABLE, CONTINUE MONITORING
--- NOTE | 2020-04-28 20:55 | NUR ---
Critical Blood Sugar Hospitalist made aware of patient's critical blood sugar, no new orders given, will continue to monitor.
[2020-04-28] MEDS: ATORVASTATIN 20 MG TAB PO SCH (21:44)
--- NOTE | 2020-04-28 21:44 | NUR ---
Low Grade Temperature Patient's temperature is 100.7, cooling measures taken, will continue to monitor.
[2020-04-28] MEDS: ACETAMINOPHEN 325 MG TAB PO PRN (21:45)
[2020-04-28 22:00] VITALS: BP 145/67
[2020-04-29] MEDS: ACCU-CHEK COMFORT CURVE STRIP VI SCH ×6 (00:13→21:04)
[2020-04-29] MEDS: PIPERACILLIN-TAZOB 2.25GM 50 ML IV SCH ×4 (00:14→17:30)
[2020-04-29] MEDS: InsuLIN REG 1unit/0.01ml Soln (100units/ml) SC SCH ×6 (00:14→21:06)
[2020-04-29 05:00] VITALS: BP 141/68
[2020-04-29] MEDS: SODIUM CHLORIDE 0.9% 1,000 ML IV SCH ×2 (05:43→20:20)
[2020-04-29 06:33] LABS: Potassium 4.3 mmol/L (3.5-5.1)
[2020-04-29 06:53] LABS: Albumin 2.3 g/dL (3.4-5.0); BUN/Creatinine Ratio 23.7; Bilirubin, Total 0.2 mg/dL (0.2-1.0); Calcium 8.7 mg/dL (8.5-10.1); Total Protein 7.7 g/dL (6.4-8.2)
--- NOTE | 2020-04-29 07:15 | NUR ---
OPENING NOTE Assumed responsibility of patient at 0700. Assisted patient with ADLs. Respiratory sounds clear, equal bilaterally and unlabored. Patient verbalized that she is not having any pain at this time. Bed locked in lowest position, side rails up x 3, HOB elevated at least 30 degrees and call light is within reach.
--- NOTE | 2020-04-29 07:30 | NUR ---
Closing Note Patient status not changed. Endorsed care to dayshift nurse.
[2020-04-29] MEDS: INSULIN LANTUS (GLARGINE) 1 /0.01ml (100units/ml) SC SCH ×2 (08:58→22:10)
[2020-04-29] MEDS: CARVEDILOL 3.125 MG TAB PO SCH ×2 (08:59→22:10)
[2020-04-29] MEDS: ASPirin 81 mg TAB PO SCH (08:59)
[2020-04-29 09:00] VITALS: BP 128/65
[2020-04-29] MEDS: CLOPIDOGREL BISULFATE 75 MG TAB PO SCH (09:00)
[2020-04-29] MEDS: SACUBITRIL-VALSARTAN 24mg/26mg TAB PO SCH ×2 (09:00→22:10)
[2020-04-29] MEDS: FUROSEMIDE 20 MG/2 ML VIAL IV SCH (09:25)
[2020-04-29 13:00] VITALS: BP 110/54
[2020-04-29 16:50] VITALS: BP 129/63
[2020-04-29 22:00] VITALS: BP 136/54
[2020-04-29] MEDS: ATORVASTATIN 20 MG TAB PO SCH (22:10)
[2020-04-29] MEDS: ACETAMINOPHEN 325 MG TAB PO PRN (22:54)
--- NOTE | 2020-04-29 22:54 | NUR ---
Pain Patient c/o pain 3/10 to right foot, pain medication administered.
--- NOTE | 2020-04-29 23:54 | NUR ---
RE Pain patient resting with eyes closed, no sign of pain or distress. will continue to monitor.
[2020-04-30] MEDS: ACCU-CHEK COMFORT CURVE STRIP VI SCH ×6 (00:27→21:20)
[2020-04-30] MEDS: PIPERACILLIN-TAZOB 2.25GM 50 ML IV SCH ×4 (00:27→17:12)
[2020-04-30] MEDS: InsuLIN REG 1unit/0.01ml Soln (100units/ml) SC SCH ×6 (00:45→22:06)
--- NOTE | 2020-04-30 05:30 | NUR ---
Pre-Op Ready Lining change with ECG wipe done, patient tolerated well.
[2020-04-30 06:00] VITALS: BP 134/65
[2020-04-30 07:04] LABS: Basophils # (auto) 0.1 10 ^3/uL (0-0.2); Basophils % (auto) 0.5 % (0.0-2.0); Eosinophils # (auto) 0.3 10 ^3/uL (0-0.8); Eosinophils % (auto) 3.1 % (0.0-7.0); Hematocrit 28.4 % (36.0-46.0); Hemoglobin 9.4 g/dL (12.2-16.2); Lymphocytes # (auto) 1.8 10 ^3/uL (0.4-5.4); Lymphocytes % (auto) 16.8 % (10.0-50.0); Mean Corpuscular Hemoglobin 30.2 pg (28.0-32.0); Mean Corpuscular Hgb Conc. 33.2 g/dL (32.0-36.0); Mean Corpuscular Volume 91.2 fL (80.0-100.0); Monocytes # (auto) 0.7 10 ^3/uL (0-1.3); Monocytes % (auto) 6.5 % (0.0-12.0); Neutrophils # (auto) 7.7 10 ^3/uL (1.6-8.6); Neutrophils % (auto) 73.1 % (37.0-80.0); Nucleated Red Blood Cells % 0.1 %; Platelet Count (auto) 416 10^3/uL (140-450); Red Blood Cells 3.11 10^6/uL (4.0-5.20); Red Cell Distribution Width 12.7 % (11.8-14.3); White Blood Cell 10.6 10^3/uL (4.4-10.8)
[2020-04-30 07:13] LABS: INR 0.99 (0.9-1.15)
[2020-04-30 07:20] LABS: Potassium 4.4 mmol/L (3.5-5.1)
--- NOTE | 2020-04-30 07:25 | NUR ---
Closing Note Patient status not changed. Care endorsed given to dayshift RN.
[2020-04-30 07:36] LABS: Albumin 2.8 g/dL (3.4-5.0); BUN/Creatinine Ratio 21.5; Bilirubin, Total 0.2 mg/dL (0.2-1.0); Calcium 9.1 mg/dL (8.5-10.1)
[2020-04-30] MEDS ORDERED: LIDOCAINE 1% HCL (LOCAL ANESTH.) INJ 20ML MDV ONE (07:59)
[2020-04-30 09:00] VITALS: BP 137/60
[2020-04-30] MEDS: ASPirin 81 mg TAB PO SCH (09:17)
[2020-04-30] MEDS: SACUBITRIL-VALSARTAN 24mg/26mg TAB PO SCH ×2 (09:17→21:16)
[2020-04-30] MEDS: CARVEDILOL 3.125 MG TAB PO SCH ×2 (09:18→21:17)
[2020-04-30] MEDS: FUROSEMIDE 20 MG/2 ML VIAL IV SCH (09:19)
[2020-04-30] MEDS: SODIUM CHLORIDE 0.9% 1,000 ML IV SCH (09:19)
[2020-04-30] MEDS: INSULIN LANTUS (GLARGINE) 1 /0.01ml (100units/ml) SC SCH ×2 (09:20→22:04)
[2020-04-30] MEDS: CLOPIDOGREL BISULFATE 75 MG TAB PO SCH (09:20)
[2020-04-30] MEDS ORDERED: PROPOFOL 10 MG/ML 20 ML IV ONE (10:04)
[2020-04-30] MEDS ORDERED: fentaNYL CITRATE 100 MCG/2 ML VL ONE (10:04)
[2020-04-30] MEDS ORDERED: KETAMINE HCL 10 ML ONE (10:04)
[2020-04-30] MEDS ORDERED: MIDAZOLAM HCL 1MG/1ML-2 ML VIAL ONE ×2 (10:04→13:56)
[2020-04-30] MEDS ORDERED: SODIUM CHLORIDE LOCK 10 ML ONE (10:04)
[2020-04-30] MEDS ORDERED: ONDANSETRON HCL 4 MG/2 ML VIAL ONE (10:04)
--- NOTE | 2020-04-30 11:05 | NUR ---
Off Unit Patient taken to pre-op for procedure.
[2020-04-30] MEDS ORDERED: ceFAZolin 1GM/50ML 50 ML IV ONE (12:28)
[2020-04-30] MEDS ORDERED: BUPIVACAINE HCL 50 ML ONE (12:45)
[2020-04-30] MEDS ORDERED: LIDOCAINE W/ EPINEPHRINE 1% 20ML VIAL ONE (12:45)
[2020-04-30] MEDS ORDERED: HYDROmorphone HCL 2 MG/ML VL IV PRN (13:00)
[2020-04-30] MEDS ORDERED: MORPHINE SULFATE 4 MG/ML SYR/VIAL IV PRN (13:00)
[2020-04-30] MEDS ORDERED: ONDANSETRON HCL 4 MG/2 ML VIAL IV PRN (13:00)
[2020-04-30] MEDS ORDERED: ACCU-CHEK COMFORT CURVE STRIP VI ONE (13:00)
--- NOTE | 2020-04-30 15:00 | NUR ---
On Unit Patient brought to unit from PACU, awake and alert. Dressing to right foot dry and intact. Call light placed within reach and bed alarm on for safety. Patient encouraged to call for assistance as needed.
[2020-04-30] MEDS: VANCOMYCIN 1GM/250ML 250 ML IV SCH (15:11)
--- NOTE | 2020-04-30 15:20 | NUR ---
Diet Order Received telephone order from Dr. Mora for regular consistent carbohydrate diet for patient.
[2020-04-30 16:52] VITALS: BP 101/83
[2020-04-30] MEDS: ATORVASTATIN 20 MG TAB PO SCH (21:16)
[2020-04-30 21:41] VITALS: BP 147/65
[2020-05-01] MEDS: SODIUM CHLORIDE 0.9% 1,000 ML IV SCH ×2 (00:29→11:59)
[2020-05-01] MEDS: PIPERACILLIN-TAZOB 2.25GM 50 ML IV SCH ×2 (00:29→06:00)
[2020-05-01] MEDS: ACCU-CHEK COMFORT CURVE STRIP VI SCH ×6 (00:35→23:00)
[2020-05-01] MEDS: InsuLIN REG 1unit/0.01ml Soln (100units/ml) SC SCH ×6 (04:00→23:05)
[2020-05-01 05:00] VITALS: BP 116/51
[2020-05-01 06:53] LABS: Albumin 2.3 g/dL (3.4-5.0); BUN/Creatinine Ratio 21.4; Calcium 8.3 mg/dL (8.5-10.1); Potassium 4.3 mmol/L (3.5-5.1)
[2020-05-01 06:56] LABS: Bilirubin, Total 0.2 mg/dL (0.2-1.0); Total Protein 7.5 g/dL (6.4-8.2)
--- NOTE | 2020-05-01 08:00 | NUR ---
OPENING SHIFT NOTE ASSUMED CARE OF PATIENT AWAKE AND ALERT. NO S/S OF DISTRESS NOTED OR COMPLAINTS OF PAIN. PATIENT UPDATED ON POC FOR THE DAY AND ALL QUESTIONS ANSWERED. BED IS IN LOWEST, LOCKED POSITION WITH SIDE RAILS UP X2 AND CALL LIGHT WITHIN REACH. WILL CONTINUE TO MONITOR Q1H AND PRN.
[2020-05-01 09:17] VITALS: BP 124/53
[2020-05-01] MEDS: ASPirin 81 mg TAB PO SCH (09:47)
[2020-05-01] MEDS: SACUBITRIL-VALSARTAN 24mg/26mg TAB PO SCH ×2 (09:48→23:02)
[2020-05-01] MEDS: CARVEDILOL 3.125 MG TAB PO SCH ×2 (09:48→23:02)
[2020-05-01] MEDS: INSULIN LANTUS (GLARGINE) 1 /0.01ml (100units/ml) SC SCH ×2 (09:48→23:03)
[2020-05-01] MEDS: FUROSEMIDE 20 MG/2 ML VIAL IV SCH (09:48)
[2020-05-01] MEDS: CLOPIDOGREL BISULFATE 75 MG TAB PO SCH (09:48)
--- NOTE | 2020-05-01 11:02 | NUR ---
BRO RAMIREZ AT BEDSIDE ROUNDING ON PATIENT.
--- NOTE | 2020-05-01 11:30 | NUR ---
AT BEDSIDE DR HALL AT BEDSIDE ROUNDING ON PATIENT.
--- NOTE | 2020-05-01 13:51 | NUR ---
D/C Planning Per SS consult for a wheelchair. Faxed clinical information to [facility]. Per Olamide with [facility] ) they will deliver wheelchair to front lobby between 13:40-16:40. Informed AMIE Balbuena.
[2020-05-01 14:05] VITALS: BP 136/64
--- NOTE | 2020-05-01 14:33 | NUR ---
PICC line placement Patient educated on need for PICC line placement. All risks and benefits explained and all questions and concerns addressed prior to procedure. Noted past medical history and allergies with no contraindications. INR and Plt counts within acceptable range. 4 fr PICC line inserted via right basilic vein using [employer] US and Tip Location System. Sterile technique with maximum barrier precautions utilized. Blood return obtained from lumen and flushed easily with NS using proper technique. PICC secured with Stat-lock; biodisc and occlusive dressing applied. Stat portable chest x-ray obtained for PICC tip placement. *Baseline Arm Circumference 27 cm. Internal length 41 cm. External length 0 cm. PICC lot #[id number]
--- NOTE | 2020-05-01 14:40 | NUR ---
Nutrition Followup Note Wt: 69.9 kg Pt was sleeping with no family by bedside. per records pt with improving JACKELYN. pt with no distress noted per nursing. pt is currently on CCHO 60 gm/meal diet with adequate PO of 75% x 2 per RN doc Est energy needs ABW 57 [id number] kcal (23-25 kcal/kg BW) Est protein needs: 45-57g (0.8-1g/kg BW r/t elev RFT hypoalb wounds) Will reassess prn. Labs: BUN 40 H, CREAT 1.87 H, CA 8.3 L, ALB 2.3 L BM: 1 BM today per RN doc Skin: BS 18 mod risk, full details per primary care nurse doc PES: 1) Altered nutrition related lab values r.t current chronic medical condition aeb elev RFT A1C hyperglycemia Decreased nutrient needs r/t adiposity aeb pt`s high BMI of 33.2 kgm Comments 1) consider MVI/C bid. 2) refer to CDE on DC. 3) consider prostat 1 packet once a day as RFT improve. 4) continue current plan of care. F/u mod 3-5 days
[2020-05-01] MEDS ORDERED: LIDOCAINE 1% (LOCAL ANESTH.) PF 5ml SDV ID ONE (14:45)
--- NOTE | 2020-05-01 15:06 | NUR ---
Okay to use PICC line Xray completed. Okay to use PICC line. Primary RN notified.
--- NOTE | 2020-05-01 15:34 | NUR ---
WOUND CARE WOUND CARE PROVIDED TO PATIENT PER MD ORDER. OLD DRESSING AND PACKING REMOVED. /" DAKENS SOAKED PACKING INSERTED INTO WOUND. KERLIX AND DANYEL WRAP APPLIED SECURELY. WOUND IS STILL ACTIVELY BLEEDING WITH MODERATE AMOUNT OF BLOOD LOSS. PRESSURE HELD FOR 5 MINUTES AND WOUND CONTINUES TO BLEED. PATIENT TOLERATED WELL.
[2020-05-01 17:27] VITALS: BP 151/71
--- NOTE | 2020-05-01 17:30 | NUR ---
BLEEDING CALLED IN TO THE ROOM BY STAFF REGARDING PATIENT'S DRESSING BEING COMPLETELY SATURATED. FOOT ELEVATED AND PAGE PLACED TO DR DAMICO FOR ORDERS. WILL CONTINUE TO MONITOR.
--- NOTE | 2020-05-01 17:40 | NUR ---
DR DAMICO RECEIVED CALL BACK FROM DR DAMICO. RECEIVED ORDERS, READ BACK AND VERIFIED. WILL CARRY OUT.
[2020-05-01] MEDS ORDERED: THROMBIN (BOVINE) 5000 UNIT SOL VIAL TP ONE (17:45)
--- NOTE | 2020-05-01 18:29 | NUR ---
THROMBIN TOPICAL THROMBIN PLACED DIRECTLY ON WOUND AND COVERED WITH FOAM DRESSING. PRESSURE DRESSING APPLIED TO FOOT. WILL CONTINUE TO MONITOR.
--- NOTE | 2020-05-01 19:20 | NUR ---
Opening Shift ASSUMED CARE OF PATIENT AWAKE AND ALERT. NO S/S OF DISTRESS NOTED OR COMPLAINTS OF PAIN. PATIENT UPDATED ON POC FOR THE DAY AND ALL QUESTIONS ANSWERED. BED IS IN LOWEST, LOCKED POSITION WITH SIDE RAILS UP X2 AND CALL LIGHT WITHIN REACH. WILL CONTINUE TO MONITOR.
[2020-05-01 21:58] VITALS: BP 127/51
[2020-05-01] MEDS: SODIUM CHLOR 0.9% PF (SALINE LOCK) 10ML VIAL/SYR IV SCH (23:01)
[2020-05-01] MEDS: ATORVASTATIN 20 MG TAB PO SCH (23:02)
[2020-05-02] MEDS: ACCU-CHEK COMFORT CURVE STRIP VI SCH ×7 (00:20→23:35)
[2020-05-02] MEDS: InsuLIN REG 1unit/0.01ml Soln (100units/ml) SC SCH ×7 (01:09→23:35)
[2020-05-02] MEDS: VANCOMYCIN 1GM/250ML 250 ML IV SCH (02:07)
[2020-05-02] MEDS: SODIUM CHLORIDE 0.9% 1,000 ML IV SCH ×2 (02:07→17:14)
--- NOTE | 2020-05-02 04:00 | NUR ---
Blood sugar 69, patient asymptomatic, orange juice given, patient is awake.
[2020-05-02] MEDS: MORPHINE SULFATE 4 MG/ML SYR/VIAL IV PRN (04:47)
[2020-05-02 05:00] VITALS: BP 122/57
[2020-05-02 09:26] VITALS: BP 129/57
[2020-05-02] MEDS: SODIUM CHLOR 0.9% PF (SALINE LOCK) 10ML VIAL/SYR IV SCH ×2 (10:19→21:39)
[2020-05-02] MEDS: CARVEDILOL 3.125 MG TAB PO SCH ×2 (10:42→21:41)
[2020-05-02] MEDS: FUROSEMIDE 20 MG/2 ML VIAL IV SCH (10:42)
[2020-05-02] MEDS: ASPirin 81 mg TAB PO SCH (10:42)
[2020-05-02] MEDS: SACUBITRIL-VALSARTAN 24mg/26mg TAB PO SCH ×2 (10:43→21:40)
[2020-05-02] MEDS: CLOPIDOGREL BISULFATE 75 MG TAB PO SCH (10:43)
[2020-05-02] MEDS: DAKINS HALF STR 0.25% (NaHypochlorite) 473 ML TOPICAL SOL TOP SCH (10:43)
[2020-05-02] MEDS: INSULIN LANTUS (GLARGINE) 1 /0.01ml (100units/ml) SC SCH ×2 (10:46→21:47)
--- NOTE | 2020-05-02 11:30 | NUR ---
Spoke to Kaylen THERMAL MOLDER SW. regarding Social Service consult to arrange for HH with abx. Per Kaylen need infusion people for IV ABX and not available on weekends. Will notify
[2020-05-02 13:00] VITALS: BP 145/63
[2020-05-02 17:44] VITALS: BP 160/63
[2020-05-02 18:25] VITALS: BP 152/64
[2020-05-02] MEDS: ATORVASTATIN 20 MG TAB PO SCH (21:40)
[2020-05-02 22:37] VITALS: BP 136/47
[2020-05-03] MEDS: InsuLIN REG 1unit/0.01ml Soln (100units/ml) SC SCH ×5 (04:00→19:55)
[2020-05-03] MEDS: ACCU-CHEK COMFORT CURVE STRIP VI SCH ×5 (04:04→19:54)
[2020-05-03] MEDS: SODIUM CHLORIDE 0.9% 1,000 ML IV SCH ×2 (04:20→18:00)
[2020-05-03 05:00] VITALS: BP 151/70
[2020-05-03 08:00] VITALS: BP 143/73
[2020-05-03 09:00] VITALS: BP 143/73
--- NOTE | 2020-05-03 09:50 | NUR ---
DR HALL ON UNIT
[2020-05-03] MEDS: FUROSEMIDE 20 MG/2 ML VIAL IV SCH (09:55)
[2020-05-03] MEDS: SODIUM CHLOR 0.9% PF (SALINE LOCK) 10ML VIAL/SYR IV SCH ×2 (09:55→21:18)
[2020-05-03] MEDS: CLOPIDOGREL BISULFATE 75 MG TAB PO SCH (09:56)
[2020-05-03] MEDS: CARVEDILOL 3.125 MG TAB PO SCH ×2 (09:56→21:18)
[2020-05-03] MEDS: SACUBITRIL-VALSARTAN 24mg/26mg TAB PO SCH ×2 (09:56→21:16)
[2020-05-03] MEDS: ASPirin 81 mg TAB PO SCH (09:56)
[2020-05-03] MEDS: INSULIN LANTUS (GLARGINE) 1 /0.01ml (100units/ml) SC SCH ×2 (10:13→21:17)
--- NOTE | 2020-05-03 10:26 | NUR ---
HOME HEALTH AND IV ANTIBIOTICS Spoke to Kaylen in SS regarding Social Service consult to arrange for HH with abx. Per Kaylen infusion company is closed over the weekend and this will be arranged on Tuesday
[2020-05-03] MEDS: DAKINS HALF STR 0.25% (NaHypochlorite) 473 ML TOPICAL SOL TOP SCH (10:40)
[2020-05-03] MEDS: VANCOMYCIN 1GM/250ML 250 ML IV SCH (14:02)
--- NOTE | 2020-05-03 16:53 | NUR ---
WOUND CARE WOUND CARE PROVIDED TO PATIENT PER MD ORDER. OLD DRESSING AND PACKING REMOVED. /" DAKINS SOAKED PACKING INSERTED INTO WOUND. KERLIX AND DANYEL WRAP APPLIED SECURELY. NO BLEEDING, OR ODOR NOTED. PATIENT TOLERATED WELL WITHOUT COMPLAINTS OF PAIN OR DISCOMFORT
[2020-05-03 17:00] VITALS: BP 158/71
[2020-05-03] MEDS: SENNA 8.6 MG TAB PO SCH (21:17)
[2020-05-03] MEDS: ATORVASTATIN 20 MG TAB PO SCH (21:17)
[2020-05-03] MEDS: DOCUSATE SOD 100 MG CAP PO SCH (21:18)
[2020-05-03 22:00] VITALS: BP 137/66
--- NOTE | 2020-05-03 22:00 | NUR ---
WOUND CARE EXPLAINED PROCEDURE TO PATIENT, PATIENT VERBALIZED UNDERSTANDING AND IN AGREEMENT. PER MD ORDER, WOUND CARE PERFORMED AT THIS TIME. PATIENT TOLERATED WELL. WILL CONTINUE TO MONITOR.
[2020-05-04] VITALS (12 sets, daily range): BP systolic 138–158; BP diastolic 61–73
[2020-05-04] MEDS: ACCU-CHEK COMFORT CURVE STRIP VI SCH ×6 (00:09→20:09)
--- NOTE | 2020-05-04 01:50 | NUR ---
PICC UNABLE TO FLUSH UPON ENTERING ROOM, PATIENT'S IV PUMP ALERTING OF HIGH PRESSURE. UPON ASSESSMENT, PICC DOES NOT FLUSH WITH SALINE. PATIENT STATES SHE HAS NOT NOTICED PULL/DISRUPTED MOVEMENT FROM IV LINE. WILL PAGE ON-CALL MD. WILL CONTINUE TO MONITOR.
--- NOTE | 2020-05-04 01:55 | NUR ---
ON-CALL HOSP PAGED ON-CALL HOSP PAGED TP UPDATE ON PATIENT PICC STATUS. AWAITING CALL BACK. WILL CONTINUE TO MONITOR.
--- NOTE | 2020-05-04 02:15 | NUR ---
CALL BACK FROM ON-CALL MD RECEIVED CALL BACK FROM ON-CALL HOSP. UPDATED MD ON PATIENT STATUS AND STATUS OF PICC LINE. RECEIVED NEW ORDER, READ BACK AND VERIFIED (SEE NEW ORDERS). WILL CARRY OUT. WILL CONTINUE TO MONITOR.
--- NOTE | 2020-05-04 03:38 | NUR ---
SUCCESSFUL FLUSH EXPLAINED TO PATIENT INDICATION OF PROCEDURE, PATIENT VERBALIZED UNDERSTANDING AND IN AGREEMENT. PER MD ORDER, PICC FLUSHED (SEE EMAR FOR ADMINISTRATION). PATIENT TOLERATED WELL. PICC LINE NOW FLUSHING/DRAWING BACK WELL AT THIS TIME. WILL CONTINUE TO MONITOR.
--- NOTE | 2020-05-04 03:46 | NUR ---
LOW BG PATIENT'S BLOOD GLUCOSE 52. PROTOCOL INITIATED. PATIENT ABLE TO SWALLOW. WILL CONTINUE TO MONITOR.
--- NOTE | 2020-05-04 03:56 | NUR ---
BG RECHECK PATIENT'S BLOOD SUGAR NOW 65. WILL CONTINUE TO MONITOR.
[2020-05-04] MEDS: InsuLIN REG 1unit/0.01ml Soln (100units/ml) SC SCH ×6 (03:59→20:09)
--- NOTE | 2020-05-04 04:50 | NUR ---
BG RECHECK PATIENT'S BLOOD SUGAR 78. ADDITIONAL SNACKS/JUICE LEFT AT BEDSIDE. PATIENT STATES SHE FEELS OKAY. WILL CONTINUE TO MONITOR.
[2020-05-04] MEDS: SODIUM CHLORIDE 0.9% 1,000 ML IV SCH (05:21)
[2020-05-04 08:22] LABS: Basophils # (auto) 0 10 ^3/uL (0-0.2); Basophils % (auto) 0.5 % (0.0-2.0); Eosinophils # (auto) 0.2 10 ^3/uL (0-0.8); Hemoglobin 7.1 g/dL (12.2-16.2); Lymphocytes # (auto) 1.8 10 ^3/uL (0.4-5.4); Monocytes # (auto) 0.4 10 ^3/uL (0-1.3); Neutrophils # (auto) 5.9 10 ^3/uL (1.6-8.6); Red Cell Distribution Width 13.1 % (11.8-14.3)
[2020-05-04 08:23] LABS: Eosinophils % (auto) 2.8 % (0.0-7.0); Hematocrit 21.3 % (36.0-46.0); Lymphocytes % (auto) 21.4 % (10.0-50.0); Mean Corpuscular Hemoglobin 30.6 pg (28.0-32.0); Mean Corpuscular Hgb Conc. 33.3 g/dL (32.0-36.0); Mean Corpuscular Volume 91.7 fL (80.0-100.0); Monocytes % (auto) 4.5 % (0.0-12.0); Neutrophils % (auto) 70.8 % (37.0-80.0); Platelet Count (auto) 359 10^3/uL (140-450); Red Blood Cells 2.33 10^6/uL (4.0-5.20); White Blood Cell 8.4 10^3/uL (4.4-10.8)
[2020-05-04 08:43] LABS: BUN/Creatinine Ratio 23.4; Calcium 8.9 mg/dL (8.5-10.1)
[2020-05-04] MEDS: FUROSEMIDE 20 MG/2 ML VIAL IV SCH (09:48)
[2020-05-04] MEDS: SODIUM CHLOR 0.9% PF (SALINE LOCK) 10ML VIAL/SYR IV SCH ×2 (09:49→21:54)
[2020-05-04] MEDS: CARVEDILOL 3.125 MG TAB PO SCH ×2 (09:51→21:55)
[2020-05-04] MEDS: DOCUSATE SOD 100 MG CAP PO SCH ×2 (09:51→21:54)
[2020-05-04] MEDS: CLOPIDOGREL BISULFATE 75 MG TAB PO SCH (09:52)
[2020-05-04] MEDS: SACUBITRIL-VALSARTAN 24mg/26mg TAB PO SCH ×2 (09:52→21:54)
[2020-05-04] MEDS: INSULIN LANTUS (GLARGINE) 1 /0.01ml (100units/ml) SC SCH ×2 (10:08→23:40)
[2020-05-04] MEDS: DAKINS HALF STR 0.25% (NaHypochlorite) 473 ML TOPICAL SOL TOP SCH (10:08)
--- NOTE | 2020-05-04 11:00 | NUR ---
DR HALL BEDSIDE WITH PATIENT. ORDERS RECEIVED AND CARRIED OUT
[2020-05-04] MEDS: ASPirin 81 mg TAB PO SCH (11:29)
--- NOTE | 2020-05-04 11:58 | NUR ---
WOUND CARE NOTE: Wound care in to see patient for reevaluation of wound. Patient continue resting in bed in Rm. 284A. She's awake, alert and oriented. Patient denies any pain at this time. She's able to turn and reposition self and her Ricki score is 19. Patient underdone Incision and Debridement of all non-viable soft tissue and bone with delayed closer of R foot wound by Dr. Garber on 04/30/20. MD ordered BID WTD dressing with packing of wound with Dakin's solution soaked 1/4 plain packing strips. Removed patient's R foot wound dressing and packing. Patient's R foot wound measuring 4x3.2x3.5cm. Wound bed is red with granulation tissue, ashley wound is pink, no drainage/odor noted. Cleansed wound, photographed and changed the dressing per MD order. Patient tolerated well. RECOMMENDATION: Nursing to continue with BID dressing change to R foot wound per 's order, continue with skin/wound plan of care, continue monitoring by wound care while patient is hospitalized. Addendum: 05/04/20 at 1621 by Saundra Kimbrough RN Amended: Links added.
[2020-05-04] MEDS: ACETAMINOPHEN 325 MG TAB PO PRN (14:43)
[2020-05-04] MEDS: SENNA 8.6 MG TAB PO SCH (21:54)
[2020-05-04] MEDS: ATORVASTATIN 20 MG TAB PO SCH (21:54)
[2020-05-05] MEDS: InsuLIN REG 1unit/0.01ml Soln (100units/ml) SC SCH ×6 (00:30→20:23)
[2020-05-05] MEDS: ACCU-CHEK COMFORT CURVE STRIP VI SCH ×6 (00:52→20:23)
[2020-05-05] MEDS: VANCOMYCIN 1GM/250ML 250 ML IV SCH (02:21)
[2020-05-05 05:01] VITALS: BP 140/64
--- NOTE | 2020-05-05 07:30 | NUR ---
Opening Shift Note Assumed care of patient, who is alert and oriented x4. Respirations are even and unlabored. No S/S of distress/SOB or pain. Bed is low, locked with 2x side rails up. Call light is within reach. Instructed on POC and to call for assist PRN, will continue to monitor for changes Q1hr and PRN.
--- NOTE | 2020-05-05 08:25 | NUR ---
Boom at bedside Updating patient on POC. Will continue to monitor.
[2020-05-05] MEDS: FUROSEMIDE 20 MG/2 ML VIAL IV SCH (09:16)
[2020-05-05] MEDS: DOCUSATE SOD 100 MG CAP PO SCH ×2 (09:17→21:57)
[2020-05-05] MEDS: CARVEDILOL 3.125 MG TAB PO SCH ×2 (09:17→21:58)
[2020-05-05] MEDS: SACUBITRIL-VALSARTAN 24mg/26mg TAB PO SCH ×2 (09:17→21:58)
[2020-05-05] MEDS: SODIUM CHLOR 0.9% PF (SALINE LOCK) 10ML VIAL/SYR IV SCH ×2 (09:18→21:57)
[2020-05-05] MEDS: ASPirin 81 mg TAB PO SCH (09:18)
[2020-05-05] MEDS: CLOPIDOGREL BISULFATE 75 MG TAB PO SCH (09:18)
[2020-05-05] MEDS: INSULIN LANTUS (GLARGINE) 1 /0.01ml (100units/ml) SC SCH ×2 (09:18→21:59)
[2020-05-05 10:49] LABS: Hematocrit 29.1 % (36.0-46.0); Hemoglobin 9.6 g/dL (12.2-16.2)
--- NOTE | 2020-05-05 11:01 | NUR ---
Spoke with Kaylen Regarding order for [facility] for IV antibiotics. Per Kaylen she will contact this nurse when HH is set up. Will continue to monitor.
[2020-05-05 13:00] VITALS: BP 143/66
--- NOTE | 2020-05-05 14:01 | NUR ---
Nutrition Followup Note Wt: 68.0 kg Pt was with at time of rounds. Per RN notes pt waiting to DC home with home health for abx. Pt with adequate po intake aeb pt with 100% avg po intake x 2 days per RN nutrition doc Est energy needs ABW 57 [id number] kcal (23-25 kcal/kg BW) Est protein needs: 45-57g (0.8-1g/kg BW r/t elev RFT hypoalb wounds) Will reassess prn. Labs: BUN 34H, Creat 1.45H, Alb 2.3L, Gluc 192H BM: 1 BM 7/ per RN doc Skin: BS 19 mod risk, incision on foot from sx, full details per critical care clinical nurse specialist doc PES: 1) Altered nutrition related lab values r.t current chronic medical condition aeb elev RFT A1C hyperglycemia Decreased nutrient needs r/t adiposity aeb pt`s high BMI of 33.2 kgm Comments 1) consider MVI/C bid. 2) refer to CDE on DC. 3) consider prostat 1 packet once a day as RFT improve. 4) continue current plan of care. F/u mod 3-5 days
[2020-05-05] MEDS: DAKINS HALF STR 0.25% (NaHypochlorite) 473 ML TOPICAL SOL TOP SCH (16:40)
[2020-05-05 17:00] VITALS: BP 155/81
--- NOTE | 2020-05-05 17:03 | NUR ---
D/C Planning Per SS consult for home health IV abx for 4 weeks. [facility] will assist with IV abx. Faxed clinical information to [facility] and [facility]. Per representatives with agencies they can not assist with patient needs they are not contracted with health plan. Health plan is out of area. Informed [facility] if Infusion company can assist with Nurse. Informed AMIE Harding.
--- NOTE | 2020-05-05 18:13 | NUR ---
Spoke with Patricia from . Per Patricia, she is still working on finding an agency for infusion of IV antibiotics. Will relay information to oncoming nurse.
--- NOTE | 2020-05-05 19:15 | NUR ---
Opening Shift Note Assumed care of patient, awake and alert. Patient eating dinner. No S/S of distress/SOB or pain. Instructed on POC and to call for assist PRN, will continue to monitor for changes Q1hr and PRN.
[2020-05-05 20:00] VITALS: BP 147/72
[2020-05-05] MEDS: ATORVASTATIN 20 MG TAB PO SCH (21:58)
[2020-05-05] MEDS: SENNA 8.6 MG TAB PO SCH (21:59)
[2020-05-05 22:00] VITALS: BP 142/72
[2020-05-05] MEDS: ACETAMINOPHEN 325 MG TAB PO PRN (22:05)
--- NOTE | 2020-05-05 22:05 | NUR ---
Pain Patient c/o pain 3/10 to right foot, pain medication administered.
--- NOTE | 2020-05-05 23:05 | NUR ---
RE Pain Patient is complaining of pain 5/10. will continue to monitor.
[2020-05-05] MEDS: MORPHINE SULFATE 4 MG/ML SYR/VIAL IV PRN (23:51)
--- NOTE | 2020-05-05 23:51 | NUR ---
Pain Patient c/o pain 8/10 to right foot, pain medication administered.
[2020-05-06] MEDS: ACCU-CHEK COMFORT CURVE STRIP VI SCH ×5 (00:19→17:12)
[2020-05-06] MEDS: InsuLIN REG 1unit/0.01ml Soln (100units/ml) SC SCH ×5 (00:20→17:12)
--- NOTE | 2020-05-06 00:21 | NUR ---
Re Pain Patient is resting with eyes closed, no sign of pain or distress. will continue to monitor.
[2020-05-06 05:00] VITALS: BP 111/57
[2020-05-06 07:06] LABS: Potassium 4.2 mmol/L (3.5-5.1)
--- NOTE | 2020-05-06 07:16 | NUR ---
Closing Note Patient status has not changed, endorsed care to dayshift nurse.
[2020-05-06 07:31] LABS: Calcium 8.9 mg/dL (8.5-10.1)
--- NOTE | 2020-05-06 08:00 | NUR ---
OPENING SHIFT NOTE: PATIENT AWAKE IN BED, A/OX4, RESPIRATIONS EVEN AND UNLABORED. PATIENT DENIES ANY PAIN AT THIS TIME. ACCUCHECK OBTAINED BLOOD SUGAR 78 POC. RIGHT FOOT ASSESSED DRESSING CDI. NO SWELLING TO EXTREMITY NOTED, TOES WARM, FALL PRECAUTIONS IN PLACE. COMMODE AND WHEELCHAIR AT BEDSIDE. UPDATED ON PLAN OF CARE, CALL LIGHT WITHIN REACH, WILL CONTINUE TO MONITOR.
[2020-05-06 09:00] VITALS: BP 126/59
[2020-05-06] MEDS: FUROSEMIDE 20 MG/2 ML VIAL IV SCH (10:14)
[2020-05-06] MEDS: SODIUM CHLOR 0.9% PF (SALINE LOCK) 10ML VIAL/SYR IV SCH (10:14)
[2020-05-06] MEDS: ASPirin 81 mg TAB PO SCH (10:14)
[2020-05-06] MEDS: CLOPIDOGREL BISULFATE 75 MG TAB PO SCH (10:15)
[2020-05-06] MEDS: SACUBITRIL-VALSARTAN 24mg/26mg TAB PO SCH (10:15)
[2020-05-06] MEDS: DAKINS HALF STR 0.25% (NaHypochlorite) 473 ML TOPICAL SOL TOP SCH (10:15)
[2020-05-06] MEDS: DOCUSATE SOD 100 MG CAP PO SCH (10:15)
[2020-05-06] MEDS: CARVEDILOL 3.125 MG TAB PO SCH (10:17)
[2020-05-06] MEDS: INSULIN LANTUS (GLARGINE) 1 /0.01ml (100units/ml) SC SCH (10:57)
--- NOTE | 2020-05-06 11:54 | NUR ---
PLAN OF CARE: THIS RN DISCUSSED PLAN OF CARE WITH PATIENT UTILIZING RED [employer] PHONE, KNITTING SUPERVISOR NENITA ID#[id number]. PATIENT UPSET ABOUT LENGTH OF STAY, WISHING TO AMA, THIS RN ABLE TO ADDRESS CONCERNS AND EDUCATE PATIENT MUCH POSSIBLE.
--- NOTE | 2020-05-06 12:59 | NUR ---
SPOKE WITH DULCE MARIA CAR RENTAL SALES ASSISTANT: PENDING CALL BACK FROM [facility], WILL UPDATE THIS RN WITH INFO RECEIVED.
[2020-05-06 13:00] VITALS: BP 140/62
--- NOTE | 2020-05-06 13:42 | NUR ---
1330 05/06/20- Faxed the following to [facility] at [phone], face sheet, IV ABx order (Vancomycin 1 G IV daily), H/P, labs, meds, Picc note, discharge summary. Contacted [facility] nutrition coordinator at [phone] who confirmed receipted of all faxed documents, pending review by pharmacy. I informed nutrition coordinator patient planning to discharge home today. She will call back with update.
[2020-05-06] MEDS: VANCOMYCIN 1GM/250ML 250 ML IV SCH (14:25)
--- NOTE | 2020-05-06 15:28 | NUR ---
1525 05/06/20 - Contacted by seo coordinator Yoko, they do have a nurse to assist with IV ABx and will ship out all supplies today for delivery between 8pm - 10pm.
--- NOTE | 2020-05-06 15:30 | NUR ---
CALL FROM CASE MANAGEMENT INFORMED THIS RN OF ACCEPTANCE FOR [facility]. COMPANY TO DELIVER BETWEEN 8-10PM TONIGHT EQUIPMENT AND BEGIN TREATMENT TOMORROW. WILL CALL MD Darren HALL TO INFORM.
--- NOTE | 2020-05-06 15:40 | NUR ---
CALL MADE TO MD Darren HALL REGARDING ACCEPTANCE FOR [facility]. COMPANY TO DELIVER BETWEEN 8-10PM TONIGHT EQUIPMENT AND BEGIN TREATMENT TOMORROW. DISCHARGE ORDER GIVEN.
--- NOTE | 2020-05-06 15:44 | NUR ---
CALL MADE TO UPDATED ON DISCHARGE PLAN. COMING TO [place] SUPERINTENDENT PATIENT AT 1800.
--- NOTE | 2020-05-06 16:00 | NUR ---
WOUND CARE PERFORMED ORDERED. PHOTO OBTAINED FOR DISCHARGE PROTOCOL.
[2020-05-06 16:20] VITALS: BP 120/51
[2020-05-06 17:00] VITALS: BP 161/67
--- NOTE | 2020-05-06 17:54 | NUR ---
DISCHARGE: PATIENT DISCHARGED HOME. ALL EDUCATION MATERIALS GIVEN TO PATIENT, EDUCATED ON HOME HEALTH NURSE/IV INFUSION THERAPY TO BEGIN TOMORROW. PATIENT VERBALIZED UNDERSTANDING TO FILL PRESCRIPTIONS AND ATTEND SCHEDULED APPOINTMENTS. PICC LINE REMAINED INTACT. TELE RETURNED TO CARDIO UNIT. 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 PATIENT TAKEN DOWN IN NEW PERSONAL WHEELCHAIR TO PRIVATE AUTO WITHOUT INCIDENCE.
== END 2020-05-06 18:03 | disposition home health service (06) | DRG 853 ==
LOC: ER 16:22 → TELE 16:23 → TELE-WESTW 04-26 13:08
PROVIDERS: ADMIT Hospitalist; ATTEND Family Medicine
PROC: 0SBM0ZZ Excision of Right Metatarsal-Phalangeal Joint, Open Approach (ICD-10-PCS; principal; 2020-04-30 13:09)
PROC: 02HV33Z Insertion of Infusion Device into Superior Vena Cava, Percutaneous Approach (ICD-10-PCS; 2020-05-01)
PROC: 30233N1 Transfusion of Nonautologous Red Blood Cells into Peripheral Vein, Percutaneous Approach (ICD-10-PCS; 2020-05-04)
DX: A41.9 Sepsis, unspecified organism (principal); E43 Unspecified severe protein-calorie malnutrition; I50.43 Acute on chronic combined systolic (congestive) and diastolic (congestive) heart failure; N17.0 Acute kidney failure with tubular necrosis; I13.0 Hypertensive heart and chronic kidney disease with heart failure and stage 1 through stage 4 chronic kidney disease, or unspecified chronic kidney disease; L03.115 Cellulitis of right lower limb; N18.4 Chronic kidney disease, stage 4 (severe); N39.0 Urinary tract infection, site not specified; I42.9 Cardiomyopathy, unspecified; M86.8X7 Other osteomyelitis, ankle and foot; M00.9 Pyogenic arthritis, unspecified; D64.9 Anemia, unspecified; E11.22 Type 2 diabetes mellitus with diabetic chronic kidney disease; E11.40 Type 2 diabetes mellitus with diabetic neuropathy, unspecified; E11.51 Type 2 diabetes mellitus with diabetic peripheral angiopathy without gangrene; E11.621 Type 2 diabetes mellitus with foot ulcer; E11.65 Type 2 diabetes mellitus with hyperglycemia; E11.69 Type 2 diabetes mellitus with other specified complication; E66.9 Obesity, unspecified; E78.5 Hyperlipidemia, unspecified; I25.10 Atherosclerotic heart disease of native coronary artery without angina pectoris; L97.519 Non-pressure chronic ulcer of other part of right foot with unspecified severity; Z79.02 Long term (current) use of antithrombotics/antiplatelets; Z79.899 Other long term (current) drug therapy; Z83.3 Family history of diabetes mellitus; Z87.442 Personal history of urinary calculi; Z89.439 Acquired absence of unspecified foot; Z98.61 Coronary angioplasty status; Z89.421 Acquired absence of other right toe(s); Z68.31 Body mass index [BMI] 31.0-31.9, adult
CPT/HCPCS: 36415; 36569; 71045; 73700; 76775; 80048; 80053; 80202; 81001; 82570; 82728; 82962; 83036; 83605; 83735; 83880; 84100; 84156; 84300; 84484; 84550; 85014; 85018; 85025; 85610; 85730; 86850; 86900; 86901; 86920; 87040; 87070; 87075; 87077; 87081; 87086; 87186; 87205; 93005; 93925; 99291; G0378; J0690; J1642; J1815; J2001; J2250; J2405; J2543; J2704; J3490; J7060

== ENCOUNTER 2020-12-14 22:26 | Inpatient (IN) | payer OTHER ==
[~2020-12-14] VITALS: Ht 162.6 cm; Wt 70.3 kg
[~2020-12-14 22:26] MED LIST changes: +AMLO-489 PO; -AMLO5TAB15 PO; +ATOR-47 PO; -ATOR1TAB PO; -CLOP75TA41 PO; +CLOP75TA70 PO
[2020-12-14] MEDS ORDERED: DexAMETHasone SOD PHOS 10MG/1ML VIAL INJ IV ONE (23:15)
[2020-12-14] MEDS ORDERED: AZITHROMYCIN 500MG/ 250ML 250 ML IV ONE (23:15)
[2020-12-14] MEDS ORDERED: SODIUM CHLORIDE 0.9% 500 ML IV ONE (23:15)
[2020-12-14] MEDS ORDERED: DOXYCYCLINE 100MG/250ML 250 ML IV ONE (23:15)
[2020-12-14 23:56] LABS: Basophils # (auto) 0.1 10 ^3/uL (0-0.2); Basophils % (auto) 0.5 % (0.0-2.0); Eosinophils # (auto) 0.3 10 ^3/uL (0-0.8); Eosinophils % (auto) 2.5 % (0.0-7.0); Hematocrit 23.2 % (36.0-46.0); Hemoglobin 7.6 g/dL (12.2-16.2); Lymphocytes # (auto) 1.3 10 ^3/uL (0.4-5.4); Lymphocytes % (auto) 10.3 % (10.0-50.0); Mean Corpuscular Hemoglobin 31.8 pg (28.0-32.0); Mean Corpuscular Volume 96.3 fL (80.0-100.0); Monocytes # (auto) 0.6 10 ^3/uL (0-1.3); Neutrophils # (auto) 10.1 10 ^3/uL (1.6-8.6); Neutrophils % (auto) 81.7 % (37.0-80.0); Nucleated Red Blood Cells % 0.1 %; Platelet Count (auto) 230 10^3/uL (140-450); Red Blood Cells 2.41 10^6/uL (4.0-5.20); Red Cell Distribution Width 17.7 % (11.8-14.3); White Blood Cell 12.4 10^3/uL (4.4-10.8)
[2020-12-14 23:59] VITALS: BP 127/67
[2020-12-15 00:02] LABS: Urine Bacteria FEW /hpf (None Seen); Urine Blood Negative /uL (Negative); Urine Hyaline Cast MOD /lpf (0 - 2); Urine Specific Gravity 1.016 (1.001-1.035); Urine WBC 2 /hpf (0 - 5)
[2020-12-15 00:12] LABS: Albumin 2.7 g/dL (3.4-5.0); BUN/Creatinine Ratio 15.4; Calcium 8.5 mg/dL (8.5-10.1); Potassium 5.1 mmol/L (3.5-5.1)
[2020-12-15 00:13] LABS: INR 0.94 (0.9-1.15); Partial Thromboplastin Time 23.6 sec (23.0-31.2)
[2020-12-15 00:17] LABS: Bilirubin, Total 0.2 mg/dL (0.2-1.0); Total Protein 7.6 g/dL (6.4-8.2)
[2020-12-15] MEDS ORDERED: ENOXAPARIN SOD 80 MG/0.8ML SYRINGE SC ONE ×2 (00:45→20:15)
[2020-12-15] MEDS ORDERED: MORPHINE SULF INJ 2 MG/ML SYRINGE 1ML IV ONE (02:00)
[2020-12-15] MEDS ORDERED: ONDANSETRON HCL 4 MG/2 ML VIAL IV ONE (02:00)
[2020-12-15] MEDS ORDERED: TEMAZEPAM 15 MG CAP PO PRN (02:45)
[2020-12-15] MEDS ORDERED: MORPHINE SULF INJ 2 MG/ML SYRINGE 1ML IV PRN (02:45)
[2020-12-15] MEDS ORDERED: FUROSEMIDE 40 MG/4 ML VIAL IV ONE (02:45)
[2020-12-15] MEDS ORDERED: ACETAMINOPHEN 325 MG TAB PO PRN (02:45)
[2020-12-15] MEDS ORDERED: DEXTROSE (50%) 50ML SYRG IV PRN (02:45)
[2020-12-15 03:55] VITALS: BP 127/67
[2020-12-15] MEDS: FUROSEMIDE 20 MG/2 ML VIAL IV SCH ×2 (05:19→17:46)
[2020-12-15] MEDS: ACCU-CHEK COMFORT CURVE STRIP VI SCH ×4 (06:36→22:01)
[2020-12-15] MEDS: InsuLIN REG 1unit/0.01ml Soln (100units/ml) SC SCH ×4 (06:36→22:04)
[2020-12-15 06:46] VITALS: BP 134/69
[2020-12-15 08:01] VITALS: BP 142/74
[2020-12-15 09:34] VITALS: BP 127/62
[2020-12-15] MEDS ORDERED: ASPirin 81 mg TAB PO SCH ×2 (10:00)
[2020-12-15] MEDS ORDERED: AZITHROMYCIN 500MG/ 250ML 250 ML IV SCH (10:00)
[2020-12-15] MEDS ORDERED: BENAZEPRIL HCL 10 MG TAB PO SCH (10:00)
[2020-12-15] MEDS ORDERED: DexAMETHasone SOD PHOS 10MG/1ML VIAL INJ IV SCH (10:00)
[2020-12-15] MEDS ORDERED: ENOXAPARIN SOD 30 MG/0.3 ML SYRINGE SC SCH (10:00)
[2020-12-15] MEDS: AZITHROMYCIN 500MG/ 250ML 250 ML IV SCH (10:12)
[2020-12-15] MEDS: ZINC SULFATE 220mg CAP or TAB PO SCH (10:12)
[2020-12-15] MEDS: GABAPENTIN 300 MG CAP PO SCH ×2 (10:14→22:00)
[2020-12-15] MEDS: MULTIPLE VITAMIN TAB PO SCH (10:14)
[2020-12-15] MEDS: amLODIPine BESYLATE 5 MG TAB PO SCH (10:14)
[2020-12-15] MEDS: CLOPIDOGREL BISULFATE 75 MG TAB PO SCH (10:14)
[2020-12-15] MEDS: ASCORBIC ACID 500 MG TAB PO SCH ×2 (10:15→22:00)
[2020-12-15] MEDS: PANTOPRAZOLE 40 MG TAB PO SCH (10:15)
[2020-12-15] MEDS: ENOXAPARIN SOD 40 MG/0.4 ML SYRINGE SC SCH (10:15)
[2020-12-15] MEDS: CARVEDILOL 12.5 MG TAB PO SCH ×2 (10:32→22:01)
[2020-12-15] MEDS ORDERED: cefTRIAXone 1GM/50ML D5W 50 ML IV ONE (15:00)
[2020-12-15] MEDS ORDERED: CARV12.544 PO (18:12)
[2020-12-15] MEDS ORDERED: SACU1TAB PO (18:13)
[2020-12-15] MEDS: NITROGLYCERIN 0.4 MG SL TAB SL PRN (19:45)
[2020-12-15] MEDS ORDERED: NITROGLYCERIN 0.2MG/HR TOPICAL PATCH TD ONE (20:15)
[2020-12-15] MEDS: ATORVASTATIN 20 MG TAB PO SCH (22:00)
[2020-12-15 22:25] VITALS: BP 121/66
[2020-12-16] VITALS (14 sets, daily range): BP systolic 102–168; BP diastolic 47–80
[2020-12-16] MEDS: ACCU-CHEK COMFORT CURVE STRIP VI SCH ×4 (06:08→22:34)
[2020-12-16] MEDS: InsuLIN REG 1unit/0.01ml Soln (100units/ml) SC SCH ×4 (06:09→22:00)
[2020-12-16] MEDS: FUROSEMIDE 20 MG/2 ML VIAL IV SCH ×2 (06:09→17:04)
[2020-12-16 06:49] LABS: Basophils # (auto) 0 10 ^3/uL (0-0.2); Eosinophils # (auto) 0 10 ^3/uL (0-0.8); Mean Corpuscular Hgb Conc. 33.2 g/dL (32.0-36.0)
[2020-12-16 06:52] LABS: Basophils % (auto) 0.1 % (0.0-2.0); Hematocrit 19.9 % (36.0-46.0); Lymphocytes # (auto) 1.1 10 ^3/uL (0.4-5.4); Lymphocytes % (auto) 7.7 % (10.0-50.0); Mean Corpuscular Hemoglobin 32.7 pg (28.0-32.0); Mean Corpuscular Volume 98.5 fL (80.0-100.0); Monocytes # (auto) 0.5 10 ^3/uL (0-1.3); Monocytes % (auto) 3.9 % (0.0-12.0); Neutrophils # (auto) 12.4 10 ^3/uL (1.6-8.6); Neutrophils % (auto) 88.3 % (37.0-80.0); Platelet Count (auto) 180 10^3/uL (140-450); Red Blood Cells 2.02 10^6/uL (4.0-5.20); Red Cell Distribution Width 18.2 % (11.8-14.3)
[2020-12-16 07:05] LABS: Albumin 2.5 g/dL (3.4-5.0); Calcium 8.7 mg/dL (8.5-10.1); Magnesium 1.9 mg/dL (1.6-2.6); Potassium 5.2 mmol/L (3.5-5.1)
[2020-12-16 07:11] LABS: Bilirubin, Total 0.2 mg/dL (0.2-1.0); Total Protein 7.1 g/dL (6.4-8.2)
[2020-12-16 07:20] LABS: Hemoglobin 6.6 g/dL (12.2-16.2)
[2020-12-16] MEDS: cefTRIAXone 1GM/50ML D5W 50 ML IV SCH (08:44)
[2020-12-16] MEDS: MULTIPLE VITAMIN TAB PO SCH (08:45)
[2020-12-16] MEDS: CARVEDILOL 12.5 MG TAB PO SCH ×2 (08:45→21:34)
[2020-12-16] MEDS: ASCORBIC ACID 500 MG TAB PO SCH ×2 (08:45→21:34)
[2020-12-16] MEDS: ZINC SULFATE 220mg CAP or TAB PO SCH (08:45)
[2020-12-16] MEDS: AZITHROMYCIN 500MG/ 250ML 250 ML IV SCH (08:45)
[2020-12-16] MEDS: amLODIPine BESYLATE 5 MG TAB PO SCH (08:46)
[2020-12-16] MEDS: GABAPENTIN 300 MG CAP PO SCH ×2 (08:46→21:34)
[2020-12-16] MEDS: PANTOPRAZOLE 40 MG TAB PO SCH (08:46)
[2020-12-16] MEDS: ASPirin 81 mg TAB PO SCH (09:08)
[2020-12-16] MEDS: CLOPIDOGREL BISULFATE 75 MG TAB PO SCH (09:08)
[2020-12-16] MEDS: ENOXAPARIN SOD 40 MG/0.4 ML SYRINGE SC SCH (09:09)
[2020-12-16] MEDS ORDERED: SODIUM CHLORIDE 0.9% 1,000 ML IV ONE (09:30)
[2020-12-16] MEDS: ONDANSETRON HCL 4 MG/2 ML VIAL IV PRN ×2 (10:29→15:47)
[2020-12-16] MEDS: MORPHINE SULF INJ 2 MG/ML SYRINGE 1ML IV PRN (10:30)
[2020-12-16] MEDS: ACETYLCYSTEINE ORAL for CIN 20%(200MG/ML) 4ML PO SCH (10:31)
[2020-12-16] MEDS ORDERED: CHOLECALCIFEROL (VITD3) 2,000 UNIT CAP/TAB PO ONE (14:30)
[2020-12-16] MEDS ORDERED: SODIUM ZIRCONIUM CYCL 10 GM PAK PO ONE (14:30)
[2020-12-16 15:04] LABS: % Iron Saturation 19.6 % (15-50)
[2020-12-16] MEDS: LORazepam 2MG/ML-1ML VIAL IV PRN (16:35)
[2020-12-16] MEDS: NITROGLYCERIN 0.4 MG SL TAB SL PRN ×2 (17:33→17:38)
[2020-12-16] MEDS ORDERED: FUROSEMIDE 20 MG/2 ML VIAL IV ONE (18:15)
[2020-12-16] MEDS: ATORVASTATIN 20 MG TAB PO SCH (21:34)
[2020-12-16] MEDS: INSULIN LANTUS (GLARGINE) 1 /0.01ml (100units/ml) SC SCH (22:00)
[2020-12-17 05:00] VITALS: BP 128/65
[2020-12-17 05:50] LABS: Basophils # (auto) 0.1 10 ^3/uL (0-0.2); Eosinophils # (auto) 0 10 ^3/uL (0-0.8); Lymphocytes # (auto) 1.2 10 ^3/uL (0.4-5.4); Monocytes # (auto) 0.6 10 ^3/uL (0-1.3)
[2020-12-17] MEDS: FUROSEMIDE 20 MG/2 ML VIAL IV SCH ×2 (05:54→17:37)
[2020-12-17] MEDS: ACCU-CHEK COMFORT CURVE STRIP VI SCH ×4 (05:54→21:56)
[2020-12-17] MEDS: InsuLIN REG 1unit/0.01ml Soln (100units/ml) SC SCH ×4 (05:55→21:58)
[2020-12-17 05:59] LABS: Basophils % (auto) 0.9 % (0.0-2.0); Eosinophils % (auto) 0.4 % (0.0-7.0); Hematocrit 21.7 % (36.0-46.0); Hemoglobin 7.8 g/dL (12.2-16.2); Mean Corpuscular Hemoglobin 36.6 pg (28.0-32.0); Mean Corpuscular Hgb Conc. 36.1 g/dL (32.0-36.0); Mean Corpuscular Volume 101.4 fL (80.0-100.0); Monocytes % (auto) 5.6 % (0.0-12.0); Neutrophils % (auto) 82.1 % (37.0-80.0); Platelet Count (auto) 164 10^3/uL (140-450); Red Blood Cells 2.14 10^6/uL (4.0-5.20); White Blood Cell 10.9 10^3/uL (4.4-10.8)
[2020-12-17 06:07] LABS: INR 0.96 (0.9-1.15); Partial Thromboplastin Time 24.8 sec (23.0-31.2)
[2020-12-17 06:09] LABS: Albumin 2.7 g/dL (3.4-5.0); Calcium 8.3 mg/dL (8.5-10.1); Magnesium 1.9 mg/dL (1.6-2.6); Potassium 4.7 mmol/L (3.5-5.1)
[2020-12-17 06:16] LABS: BUN/Creatinine Ratio 24.3; Bilirubin, Total 0.4 mg/dL (0.2-1.0); Total Protein 7.6 g/dL (6.4-8.2)
[2020-12-17 09:00] VITALS: BP 125/61
[2020-12-17] MEDS: cefTRIAXone 1GM/50ML D5W 50 ML IV SCH (09:13)
[2020-12-17] MEDS: ASCORBIC ACID 500 MG TAB PO SCH ×2 (10:00→21:55)
[2020-12-17] MEDS: ZINC SULFATE 220mg CAP or TAB PO SCH (10:00)
[2020-12-17] MEDS: CARVEDILOL 12.5 MG TAB PO SCH ×2 (10:00→21:54)
[2020-12-17] MEDS: ASPirin 81 mg TAB PO SCH (10:00)
[2020-12-17] MEDS: GABAPENTIN 300 MG CAP PO SCH ×2 (10:00→21:55)
[2020-12-17] MEDS: ACETYLCYSTEINE ORAL for CIN 20%(200MG/ML) 4ML PO SCH ×2 (10:00→22:00)
[2020-12-17] MEDS: amLODIPine BESYLATE 5 MG TAB PO SCH (10:00)
[2020-12-17] MEDS: CLOPIDOGREL BISULFATE 75 MG TAB PO SCH (10:00)
[2020-12-17] MEDS: MULTIPLE VITAMIN TAB PO SCH (10:00)
[2020-12-17] MEDS: CHOLECALCIFEROL (VITD3) 2,000 UNIT CAP/TAB PO SCH (10:00)
[2020-12-17] MEDS: PANTOPRAZOLE 40 MG TAB PO SCH (10:00)
[2020-12-17] MEDS ORDERED: HEPARIN SODIUM (PORCINE) 5000 UNITS/ML 1ML VIAL ONE (11:52)
[2020-12-17] MEDS ORDERED: fentaNYL CITRATE 100 MCG/2 ML VL ONE (11:52)
[2020-12-17] MEDS ORDERED: MIDAZOLAM HCL 1MG/1ML-2 ML VIAL ONE (11:52)
[2020-12-17] MEDS ORDERED: VERAPAMIL 2.5MG/ML INJ 2ML VIAL IV ONE (11:52)
[2020-12-17] MEDS ORDERED: ANGIOMAX 250 MG VIAL IV ONE (11:52)
[2020-12-17] MEDS ORDERED: SODIUM CHL 0.9% 50 ML ONE (11:53)
[2020-12-17] MEDS ORDERED: LIDOCAINE 2%HCL (LOCAL ANESTH.) INJ 20ML MDV ONE (11:53)
[2020-12-17] MEDS ORDERED: IODIXANOL 320MG/ML 100ML BTL IV ONE (11:55)
[2020-12-17] MEDS ORDERED: ASPirin 81 mg TAB ONE (13:03)
[2020-12-17] MEDS ORDERED: CLOPIDOGREL BISULFATE 75 MG TAB ONE (13:03)
[2020-12-17] MEDS: AZITHROMYCIN 500MG/ 250ML 250 ML IV SCH (14:20)
[2020-12-17 17:00] VITALS: BP 152/89
[2020-12-17 17:19] VITALS: BP 125/61
[2020-12-17] MEDS: LORazepam 2MG/ML-1ML VIAL IV PRN (18:32)
[2020-12-17] MEDS: ATORVASTATIN 20 MG TAB PO SCH (21:54)
[2020-12-17] MEDS: ONDANSETRON HCL 4 MG/2 ML VIAL IV PRN (21:55)
[2020-12-17] MEDS: MORPHINE SULF INJ 2 MG/ML SYRINGE 1ML IV PRN (21:55)
[2020-12-17] MEDS: INSULIN LANTUS (GLARGINE) 1 /0.01ml (100units/ml) SC SCH (21:56)
[2020-12-17] MEDS: DAKINS QUARTER STR 0.125% (NaHypochlorite) 473 ML TOPICAL SOL TOP SCH (21:59)
[2020-12-17 22:00] VITALS: BP 145/72
[2020-12-18] MEDS: LORazepam 2MG/ML-1ML VIAL IV PRN ×3 (01:14→21:54)
[2020-12-18 05:00] VITALS: BP 145/79
[2020-12-18] MEDS: ACCU-CHEK COMFORT CURVE STRIP VI SCH ×4 (06:01→22:02)
[2020-12-18] MEDS: InsuLIN REG 1unit/0.01ml Soln (100units/ml) SC SCH ×4 (06:01→22:00)
[2020-12-18] MEDS: FUROSEMIDE 20 MG/2 ML VIAL IV SCH ×2 (06:01→17:53)
[2020-12-18 09:00] VITALS: BP 165/72
[2020-12-18] MEDS: cefTRIAXone 1GM/50ML D5W 50 ML IV SCH (09:00)
[2020-12-18] MEDS: ONDANSETRON HCL 4 MG/2 ML VIAL IV PRN ×2 (09:02→14:18)
[2020-12-18] MEDS: MORPHINE SULF INJ 2 MG/ML SYRINGE 1ML IV PRN ×4 (09:02→22:44)
[2020-12-18] MEDS: ZINC SULFATE 220mg CAP or TAB PO SCH (09:16)
[2020-12-18] MEDS: MULTIPLE VITAMIN TAB PO SCH (09:16)
[2020-12-18] MEDS: amLODIPine BESYLATE 5 MG TAB PO SCH (09:16)
[2020-12-18] MEDS: CARVEDILOL 12.5 MG TAB PO SCH ×2 (09:16→21:54)
[2020-12-18] MEDS: GABAPENTIN 300 MG CAP PO SCH ×2 (09:16→20:56)
[2020-12-18] MEDS: PANTOPRAZOLE 40 MG TAB PO SCH (09:17)
[2020-12-18] MEDS: CHOLECALCIFEROL (VITD3) 2,000 UNIT CAP/TAB PO SCH (09:17)
[2020-12-18] MEDS: ASPirin 81 mg TAB PO SCH (09:17)
[2020-12-18] MEDS: CLOPIDOGREL BISULFATE 75 MG TAB PO SCH (09:17)
[2020-12-18] MEDS: ASCORBIC ACID 500 MG TAB PO SCH ×2 (09:17→20:56)
[2020-12-18 09:36] LABS: Basophils # (auto) 0 10 ^3/uL (0-0.2); Eosinophils # (auto) 0.1 10 ^3/uL (0-0.8); Lymphocytes # (auto) 0.5 10 ^3/uL (0.4-5.4); Monocytes # (auto) 0.4 10 ^3/uL (0-1.3); Neutrophils # (auto) 7.9 10 ^3/uL (1.6-8.6)
[2020-12-18 09:39] LABS: Basophils % (auto) 0.2 % (0.0-2.0); Eosinophils % (auto) 0.7 % (0.0-7.0); Hematocrit 21.7 % (36.0-46.0); Hemoglobin 7.8 g/dL (12.2-16.2); Lymphocytes % (auto) 5.3 % (10.0-50.0); Mean Corpuscular Hemoglobin 35.1 pg (28.0-32.0); Mean Corpuscular Hgb Conc. 35.9 g/dL (32.0-36.0); Mean Corpuscular Volume 97.7 fL (80.0-100.0); Monocytes % (auto) 4.5 % (0.0-12.0); Neutrophils % (auto) 89.3 % (37.0-80.0); Platelet Count (auto) 161 10^3/uL (140-450); Red Blood Cells 2.22 10^6/uL (4.0-5.20); Red Cell Distribution Width 18.2 % (11.8-14.3); White Blood Cell 8.8 10^3/uL (4.4-10.8)
[2020-12-18 09:56] LABS: BUN/Creatinine Ratio 25.5; Calcium 8.4 mg/dL (8.5-10.1); Potassium 4.3 mmol/L (3.5-5.1)
[2020-12-18] MEDS: ENOXAPARIN SOD 30 MG/0.3 ML SYRINGE SC SCH (10:26)
[2020-12-18] MEDS: AZITHROMYCIN 500MG/ 250ML 250 ML IV SCH (10:26)
[2020-12-18] MEDS: DAKINS QUARTER STR 0.125% (NaHypochlorite) 473 ML TOPICAL SOL TOP SCH ×2 (10:27→22:13)
[2020-12-18 13:00] VITALS: BP 130/62
[2020-12-18] MEDS ORDERED: ALBUMIN 25% 100 ML IV ONE (15:00)
[2020-12-18 16:32] VITALS: BP 182/77
[2020-12-18 18:25] VITALS: BP 146/75
[2020-12-18] MEDS: ATORVASTATIN 20 MG TAB PO SCH (20:56)
[2020-12-18 22:00] VITALS: BP 147/76
[2020-12-18] MEDS: INSULIN LANTUS (GLARGINE) 1 /0.01ml (100units/ml) SC SCH (22:04)
[2020-12-19] VITALS (18 sets, daily range): BP systolic 125–152; BP diastolic 65–88
[2020-12-19] MEDS: ONDANSETRON HCL 4 MG/2 ML VIAL IV PRN ×2 (01:38→09:24)
[2020-12-19] MEDS: MORPHINE SULF INJ 2 MG/ML SYRINGE 1ML IV PRN ×2 (03:14→09:24)
[2020-12-19] MEDS: LORazepam 2MG/ML-1ML VIAL IV PRN ×3 (04:59→18:22)
[2020-12-19] MEDS: FUROSEMIDE 20 MG/2 ML VIAL IV SCH ×2 (05:44→18:00)
[2020-12-19] MEDS: ACCU-CHEK COMFORT CURVE STRIP VI SCH ×3 (06:13→18:03)
[2020-12-19] MEDS: InsuLIN REG 1unit/0.01ml Soln (100units/ml) SC SCH ×3 (06:35→18:00)
[2020-12-19 07:02] LABS: Hematocrit 21.2 % (36.0-46.0); Hemoglobin 7.5 g/dL (12.2-16.2)
[2020-12-19 07:16] LABS: Potassium 4.5 mmol/L (3.5-5.1)
[2020-12-19 07:27] LABS: BUN/Creatinine Ratio 22.9; Calcium 8.5 mg/dL (8.5-10.1); Magnesium 2.3 mg/dL (1.6-2.6)
[2020-12-19] MEDS: CARVEDILOL 12.5 MG TAB PO SCH ×2 (08:44→21:48)
[2020-12-19] MEDS: MULTIPLE VITAMIN TAB PO SCH (08:44)
[2020-12-19] MEDS: ZINC SULFATE 220mg CAP or TAB PO SCH (08:44)
[2020-12-19] MEDS: ASPirin 81 mg TAB PO SCH (08:44)
[2020-12-19] MEDS: amLODIPine BESYLATE 5 MG TAB PO SCH (08:45)
[2020-12-19] MEDS: PANTOPRAZOLE 40 MG TAB PO SCH (08:45)
[2020-12-19] MEDS: GABAPENTIN 300 MG CAP PO SCH ×2 (08:45→21:48)
[2020-12-19] MEDS: ASCORBIC ACID 500 MG TAB PO SCH ×2 (08:45→21:48)
[2020-12-19] MEDS: CLOPIDOGREL BISULFATE 75 MG TAB PO SCH (08:45)
[2020-12-19] MEDS: DAKINS QUARTER STR 0.125% (NaHypochlorite) 473 ML TOPICAL SOL TOP SCH ×2 (08:45→21:48)
[2020-12-19] MEDS: CHOLECALCIFEROL (VITD3) 2,000 UNIT CAP/TAB PO SCH (08:45)
[2020-12-19] MEDS: AZITHROMYCIN 500MG/ 250ML 250 ML IV SCH (09:25)
[2020-12-19] MEDS: cefTRIAXone 1GM/50ML D5W 50 ML IV SCH (09:25)
[2020-12-19] MEDS ORDERED: PPN PER PHARMACY 0 ML IV SCH (13:45)
[2020-12-19 14:13] LABS: Albumin 2.7 g/dL (3.4-5.0); Bilirubin, Direct 0.2 mg/dL (0-0.2)
[2020-12-19 14:20] LABS: Bilirubin, Total 0.4 mg/dL (0.2-1.0); Phosphorus 5.4 mg/dL (2.5-4.90); Pre Albumin 15.8 mg/dL (20.0-40.0); Total Protein 7.6 g/dL (6.4-8.2)
[2020-12-19] MEDS ORDERED: DEXTROSE (50%) 50ML SYRG IV SCH (18:00)
[2020-12-19] MEDS ORDERED: AMINO ACID INFUSION IN D10W 1,000 ML IV NR (20:00)
[2020-12-19] MEDS: ATORVASTATIN 20 MG TAB PO SCH (21:48)
[2020-12-19] MEDS: INSULIN LANTUS (GLARGINE) 1 /0.01ml (100units/ml) SC SCH (22:13)
[2020-12-20] VITALS (26 sets, daily range): BP systolic 123–176; BP diastolic 58–95
[2020-12-20] MEDS: ACCU-CHEK COMFORT CURVE STRIP VI SCH ×4 (00:06→18:00)
[2020-12-20] MEDS: InsuLIN REG 1unit/0.01ml Soln (100units/ml) SC SCH ×4 (00:07→17:39)
[2020-12-20] MEDS: LORazepam 2MG/ML-1ML VIAL IV PRN ×3 (00:22→19:08)
[2020-12-20] MEDS: FUROSEMIDE 20 MG/2 ML VIAL IV SCH ×2 (05:53→17:54)
[2020-12-20 06:50] LABS: Potassium 3.9 mmol/L (3.5-5.1)
[2020-12-20 06:54] LABS: Albumin 2.4 g/dL (3.4-5.0); BUN/Creatinine Ratio 19.6; Calcium 8.4 mg/dL (8.5-10.1); Magnesium 2.3 mg/dL (1.6-2.6)
[2020-12-20 06:57] LABS: Bilirubin, Total 0.4 mg/dL (0.2-1.0); Phosphorus 4.8 mg/dL (2.5-4.90); Total Protein 6.6 g/dL (6.4-8.2)
[2020-12-20] MEDS: cefTRIAXone 1GM/50ML D5W 50 ML IV SCH (09:00)
[2020-12-20] MEDS: ENOXAPARIN SOD 30 MG/0.3 ML SYRINGE SC SCH ×2 (09:31→09:39)
[2020-12-20] MEDS: DAKINS QUARTER STR 0.125% (NaHypochlorite) 473 ML TOPICAL SOL TOP SCH ×2 (09:32→21:54)
[2020-12-20] MEDS: AZITHROMYCIN 500MG/ 250ML 250 ML IV SCH (09:32)
[2020-12-20] MEDS: ASPirin 81 mg TAB PO SCH (09:36)
[2020-12-20] MEDS: ZINC SULFATE 220mg CAP or TAB PO SCH (09:36)
[2020-12-20] MEDS: CARVEDILOL 12.5 MG TAB PO SCH ×2 (09:36→21:46)
[2020-12-20] MEDS: MULTIPLE VITAMIN TAB PO SCH (09:37)
[2020-12-20] MEDS: GABAPENTIN 300 MG CAP PO SCH ×2 (09:37→21:46)
[2020-12-20] MEDS: PANTOPRAZOLE 40 MG TAB PO SCH (09:37)
[2020-12-20] MEDS: CHOLECALCIFEROL (VITD3) 2,000 UNIT CAP/TAB PO SCH (09:37)
[2020-12-20] MEDS: ASCORBIC ACID 500 MG TAB PO SCH ×2 (09:37→21:46)
[2020-12-20] MEDS: amLODIPine BESYLATE 5 MG TAB PO SCH (09:37)
[2020-12-20] MEDS: CLOPIDOGREL BISULFATE 75 MG TAB PO SCH (09:37)
[2020-12-20] MEDS ORDERED: PPN PER PHARMACY IV NR ×6 (20:00)
[2020-12-20] MEDS: ATORVASTATIN 20 MG TAB PO SCH (21:46)
[2020-12-20] MEDS: INSULIN LANTUS (GLARGINE) 1 /0.01ml (100units/ml) SC SCH (21:55)
[2020-12-21] VITALS (26 sets, daily range): BP systolic 120–180; BP diastolic 66–96
[2020-12-21] MEDS: MORPHINE SULF INJ 2 MG/ML SYRINGE 1ML IV PRN (03:11)
[2020-12-21] MEDS: ONDANSETRON HCL 4 MG/2 ML VIAL IV PRN (03:49)
[2020-12-21 05:29] LABS: Calcium 8.6 mg/dL (8.5-10.1); Potassium 3.5 mmol/L (3.5-5.1)
[2020-12-21 05:34] LABS: Albumin 2.4 g/dL (3.4-5.0); Bilirubin, Total 0.3 mg/dL (0.2-1.0); Magnesium 2.2 mg/dL (1.6-2.6); Phosphorus 3.6 mg/dL (2.5-4.90); Total Protein 6.8 g/dL (6.4-8.2)
[2020-12-21] MEDS: FUROSEMIDE 20 MG/2 ML VIAL IV SCH ×2 (06:19→17:59)
[2020-12-21] MEDS: ACCU-CHEK COMFORT CURVE STRIP VI SCH ×4 (06:20→18:00)
[2020-12-21 06:30] LABS: Basophils # (auto) 0 10 ^3/uL (0-0.2); Basophils % (auto) 0.4 % (0.0-2.0); Eosinophils # (auto) 0.7 10 ^3/uL (0-0.8); Eosinophils % (auto) 10.2 % (0.0-7.0); Hematocrit 22.8 % (36.0-46.0); Hemoglobin 7.4 g/dL (12.2-16.2); Lymphocytes # (auto) 0.7 10 ^3/uL (0.4-5.4); Lymphocytes % (auto) 10.6 % (10.0-50.0); Mean Corpuscular Hemoglobin 30.3 pg (28.0-32.0); Mean Corpuscular Hgb Conc. 32.6 g/dL (32.0-36.0); Mean Corpuscular Volume 93.1 fL (80.0-100.0); Monocytes # (auto) 0.4 10 ^3/uL (0-1.3); Monocytes % (auto) 6.2 % (0.0-12.0); Neutrophils # (auto) 4.9 10 ^3/uL (1.6-8.6); Neutrophils % (auto) 72.6 % (37.0-80.0); Platelet Count (auto) 250 10^3/uL (140-450); Red Blood Cells 2.45 10^6/uL (4.0-5.20); Red Cell Distribution Width 17.7 % (11.8-14.3); White Blood Cell 6.7 10^3/uL (4.4-10.8)
[2020-12-21] MEDS: InsuLIN REG 1unit/0.01ml Soln (100units/ml) SC SCH ×4 (06:30→18:00)
[2020-12-21] MEDS: LORazepam 2MG/ML-1ML VIAL IV PRN (07:03)
[2020-12-21] MEDS ORDERED: HYDROmorphone HCL 2 MG/ML VL IV ONE (08:45)
[2020-12-21] MEDS: cefTRIAXone 1GM/50ML D5W 50 ML IV SCH (09:00)
[2020-12-21] MEDS: ZINC SULFATE 220mg CAP or TAB PO SCH (10:00)
[2020-12-21] MEDS: PANTOPRAZOLE 40 MG TAB PO SCH (10:00)
[2020-12-21] MEDS: amLODIPine BESYLATE 5 MG TAB PO SCH (10:00)
[2020-12-21] MEDS: CHOLECALCIFEROL (VITD3) 2,000 UNIT CAP/TAB PO SCH (10:00)
[2020-12-21] MEDS: DAKINS QUARTER STR 0.125% (NaHypochlorite) 473 ML TOPICAL SOL TOP SCH ×2 (10:00→21:53)
[2020-12-21] MEDS: ASPirin 81 mg TAB PO SCH (10:00)
[2020-12-21] MEDS: CLOPIDOGREL BISULFATE 75 MG TAB PO SCH (10:00)
[2020-12-21] MEDS: CARVEDILOL 12.5 MG TAB PO SCH ×2 (10:00→21:52)
[2020-12-21] MEDS: MULTIPLE VITAMIN TAB PO SCH (10:00)
[2020-12-21] MEDS: ASCORBIC ACID 500 MG TAB PO SCH ×2 (10:00→21:53)
[2020-12-21] MEDS: AZITHROMYCIN 500MG/ 250ML 250 ML IV SCH (10:00)
[2020-12-21] MEDS: ENOXAPARIN SOD 30 MG/0.3 ML SYRINGE SC SCH (10:34)
[2020-12-21] MEDS ORDERED: HYDROmorphone HCL 2 MG/ML VL IV PRN (10:45)
[2020-12-21] MEDS ORDERED: POTASSIUM CHL 20MEQ/100ML 100 ML IV ONE (11:00)
[2020-12-21 12:01] LABS: INR 1.06 (0.9-1.15); Partial Thromboplastin Time 26.6 sec (23.0-31.2)
[2020-12-21] MEDS ORDERED: PPN PER PHARMACY IV NR ×9 (20:00)
[2020-12-21] MEDS: ATORVASTATIN 20 MG TAB PO SCH (21:52)
[2020-12-21] MEDS: INSULIN LANTUS (GLARGINE) 1 /0.01ml (100units/ml) SC SCH (22:07)
[2020-12-22] VITALS (24 sets, daily range): BP systolic 123–161; BP diastolic 67–89
[2020-12-22] MEDS: ACCU-CHEK COMFORT CURVE STRIP VI SCH ×4 (00:17→17:51)
[2020-12-22] MEDS: InsuLIN REG 1unit/0.01ml Soln (100units/ml) SC SCH ×4 (00:25→17:51)
[2020-12-22] MEDS: HYDROmorphone HCL 2 MG/ML VL IV PRN ×2 (01:05→09:49)
[2020-12-22] MEDS: ONDANSETRON HCL 4 MG/2 ML VIAL IV PRN (04:06)
[2020-12-22 05:26] LABS: Albumin 2.5 g/dL (3.4-5.0); Calcium 8.7 mg/dL (8.5-10.1); Potassium 3.6 mmol/L (3.5-5.1)
[2020-12-22 05:30] LABS: BUN/Creatinine Ratio 28.6; Bilirubin, Total 0.3 mg/dL (0.2-1.0); Total Protein 7.4 g/dL (6.4-8.2)
[2020-12-22] MEDS: FUROSEMIDE 20 MG/2 ML VIAL IV SCH ×2 (05:50→17:50)
[2020-12-22] MEDS: LORazepam 2MG/ML-1ML VIAL IV PRN (07:44)
[2020-12-22] MEDS: cefTRIAXone 1GM/50ML D5W 50 ML IV SCH (09:04)
[2020-12-22] MEDS: AZITHROMYCIN 500MG/ 250ML 250 ML IV SCH (09:37)
[2020-12-22] MEDS: ASPirin 81 mg TAB PO SCH (09:38)
[2020-12-22] MEDS: ZINC SULFATE 220mg CAP or TAB PO SCH (09:38)
[2020-12-22] MEDS: amLODIPine BESYLATE 5 MG TAB PO SCH (09:38)
[2020-12-22] MEDS: CARVEDILOL 12.5 MG TAB PO SCH ×2 (09:38→21:49)
[2020-12-22] MEDS: MULTIPLE VITAMIN TAB PO SCH (09:38)
[2020-12-22] MEDS: CLOPIDOGREL BISULFATE 75 MG TAB PO SCH (09:38)
[2020-12-22] MEDS: PANTOPRAZOLE 40 MG TAB PO SCH (09:38)
[2020-12-22] MEDS: DAKINS QUARTER STR 0.125% (NaHypochlorite) 473 ML TOPICAL SOL TOP SCH ×2 (09:39→21:53)
[2020-12-22] MEDS: CHOLECALCIFEROL (VITD3) 2,000 UNIT CAP/TAB PO SCH (09:39)
[2020-12-22] MEDS: ENOXAPARIN SOD 30 MG/0.3 ML SYRINGE SC SCH (09:39)
[2020-12-22] MEDS: ASCORBIC ACID 500 MG TAB PO SCH ×2 (09:39→21:49)
[2020-12-22] MEDS ORDERED: PPN PER PHARMACY IV NR ×9 (20:00)
[2020-12-22] MEDS: ATORVASTATIN 20 MG TAB PO SCH (21:49)
[2020-12-22] MEDS: INSULIN LANTUS (GLARGINE) 1 /0.01ml (100units/ml) SC SCH (21:53)
[2020-12-23] VITALS (15 sets, daily range): BP systolic 124–167; BP diastolic 50–83
[2020-12-23] MEDS: LORazepam 2MG/ML-1ML VIAL IV PRN (00:07)
[2020-12-23] MEDS: HYDROmorphone HCL 2 MG/ML VL IV PRN (02:08)
[2020-12-23] MEDS: FUROSEMIDE 20 MG/2 ML VIAL IV SCH ×2 (06:02→18:10)
[2020-12-23] MEDS: InsuLIN REG 1unit/0.01ml Soln (100units/ml) SC SCH ×3 (06:19→12:06)
[2020-12-23] MEDS: ACCU-CHEK COMFORT CURVE STRIP VI SCH ×3 (06:20→12:02)
[2020-12-23 08:47] LABS: Hematocrit 23.1 % (36.0-46.0)
[2020-12-23 09:05] LABS: Albumin 2.6 g/dL (3.4-5.0); Calcium 9.2 mg/dL (8.5-10.1); Potassium 3.5 mmol/L (3.5-5.1)
[2020-12-23 09:09] LABS: Bilirubin, Total 0.3 mg/dL (0.2-1.0); Phosphorus 2.6 mg/dL (2.5-4.90); Total Protein 7.1 g/dL (6.4-8.2)
[2020-12-23] MEDS: AZITHROMYCIN 500MG/ 250ML 250 ML IV SCH (10:00)
[2020-12-23] MEDS: ASPirin 81 mg TAB PO SCH (10:01)
[2020-12-23] MEDS: cefTRIAXone 1GM/50ML D5W 50 ML IV SCH (10:01)
[2020-12-23] MEDS: CHOLECALCIFEROL (VITD3) 2,000 UNIT CAP/TAB PO SCH (10:01)
[2020-12-23] MEDS: MULTIPLE VITAMIN TAB PO SCH (10:01)
[2020-12-23] MEDS: CARVEDILOL 12.5 MG TAB PO SCH ×2 (10:02→22:03)
[2020-12-23] MEDS: ASCORBIC ACID 500 MG TAB PO SCH ×2 (10:02→22:03)
[2020-12-23] MEDS: ZINC SULFATE 220mg CAP or TAB PO SCH (10:02)
[2020-12-23] MEDS: PANTOPRAZOLE 40 MG TAB PO SCH (10:02)
[2020-12-23] MEDS: CLOPIDOGREL BISULFATE 75 MG TAB PO SCH (10:02)
[2020-12-23] MEDS: amLODIPine BESYLATE 5 MG TAB PO SCH (10:03)
[2020-12-23] MEDS: ENOXAPARIN SOD 30 MG/0.3 ML SYRINGE SC SCH (10:03)
[2020-12-23] MEDS: DAKINS QUARTER STR 0.125% (NaHypochlorite) 473 ML TOPICAL SOL TOP SCH ×2 (10:04→22:08)
[2020-12-23] MEDS ORDERED: POTASSIUM PHOSP 22MEQ(15MMOLE) in NS 100 ML IV ONE (11:00)
[2020-12-23] MEDS: MORPHINE SULF INJ 2 MG/ML SYRINGE 1ML IV PRN ×2 (16:50→22:05)
[2020-12-23] MEDS ORDERED: PPN PER PHARMACY IV NR ×8 (20:00)
[2020-12-23] MEDS: ATORVASTATIN 20 MG TAB PO SCH (22:02)
[2020-12-23] MEDS: INSULIN LANTUS (GLARGINE) 1 /0.01ml (100units/ml) SC SCH (23:00)
[2020-12-24] MEDS: HYDROmorphone HCL 2 MG/ML VL IV PRN (00:36)
[2020-12-24] MEDS: FUROSEMIDE 20 MG/2 ML VIAL IV SCH (04:54)
[2020-12-24] MEDS: ONDANSETRON HCL 4 MG/2 ML VIAL IV PRN (04:54)
[2020-12-24 06:28] LABS: Potassium 3.6 mmol/L (3.5-5.1)
[2020-12-24 06:34] LABS: Calcium 8.6 mg/dL (8.5-10.1)
[2020-12-24] MEDS ORDERED: ENOXAPARIN SOD 40 MG/0.4 ML SYRINGE SC SCH (10:00)
[2020-12-24] MEDS: MULTIPLE VITAMIN TAB PO SCH (10:39)
[2020-12-24] MEDS: cefTRIAXone 1GM/50ML D5W 50 ML IV SCH (10:39)
[2020-12-24] MEDS: ZINC SULFATE 220mg CAP or TAB PO SCH (10:39)
[2020-12-24] MEDS: ASPirin 81 mg TAB PO SCH (10:39)
[2020-12-24] MEDS: CARVEDILOL 12.5 MG TAB PO SCH (10:39)
[2020-12-24] MEDS: amLODIPine BESYLATE 5 MG TAB PO SCH (10:40)
[2020-12-24] MEDS: ASCORBIC ACID 500 MG TAB PO SCH (10:40)
[2020-12-24] MEDS: CHOLECALCIFEROL (VITD3) 2,000 UNIT CAP/TAB PO SCH (10:40)
[2020-12-24] MEDS: CLOPIDOGREL BISULFATE 75 MG TAB PO SCH (10:40)
[2020-12-24] MEDS: PANTOPRAZOLE 40 MG TAB PO SCH (10:40)
[2020-12-24] MEDS: AZITHROMYCIN 500MG/ 250ML 250 ML IV SCH (10:58)
[2020-12-24] MEDS: DAKINS QUARTER STR 0.125% (NaHypochlorite) 473 ML TOPICAL SOL TOP SCH (10:59)
[2020-12-24] MEDS ORDERED: DOXY-286 PO (11:54)
[2020-12-24] MEDS ORDERED: ASPI1CHW15 PO (11:54)
[2020-12-24] MEDS ORDERED: CLOP75TA70 PO (11:54)
[2020-12-24] MEDS ORDERED: FURO1TAB33 PO (11:54)
[2020-12-24] MEDS ORDERED: PANT40T PO (11:54)
[2020-12-24] MEDS ORDERED: CHOL1CAP47 PO (11:54)
[2020-12-24] MEDS ORDERED: METF-370 PO (12:02)
[2020-12-24] MEDS ORDERED: INSLANTI SC (12:02)
[2020-12-24 15:53] VITALS: BP 131/64
== END 2020-12-24 16:55 | disposition home health service (06) | DRG 853 ==
LOC: EDBD 22:26 → ER 22:30 → EDUNIT# 22:31 → TELE 22:31 → TELE-CENTR 12-15 17:24 → ICU WEST 12-19 10:36 → TELE-CENTR 12-23 21:25
PROVIDERS: ADMIT Nurse Practitioner; ATTEND Internal Medicine
PROC: 30233N1 Transfusion of Nonautologous Red Blood Cells into Peripheral Vein, Percutaneous Approach (ICD-10-PCS; 2020-12-16)
PROC: 027136Z Dilation of Coronary Artery, Two Arteries with Three Drug-eluting Intraluminal Devices, Percutaneous Approach (ICD-10-PCS; 2020-12-17)
PROC: 4A023N7 Measurement of Cardiac Sampling and Pressure, Left Heart, Percutaneous Approach (ICD-10-PCS; 2020-12-17)
PROC: B211YZZ Fluoroscopy of Multiple Coronary Arteries using Other Contrast (ICD-10-PCS; 2020-12-17)
PROC: B215YZZ Fluoroscopy of Left Heart using Other Contrast (ICD-10-PCS; 2020-12-17)
PROC: 4A033BC Measurement of Arterial Pressure, Coronary, Percutaneous Approach (ICD-10-PCS; 2020-12-17)
PROC: 0W993ZZ Drainage of Right Pleural Cavity, Percutaneous Approach (ICD-10-PCS; principal; 2020-12-22)
DX: A41.9 Sepsis, unspecified organism (principal); I21.A1 Myocardial infarction type 2; I50.43 Acute on chronic combined systolic (congestive) and diastolic (congestive) heart failure; J69.0 Pneumonitis due to inhalation of food and vomit; J96.01 Acute respiratory failure with hypoxia; N17.0 Acute kidney failure with tubular necrosis; E87.2 Acidosis; I13.0 Hypertensive heart and chronic kidney disease with heart failure and stage 1 through stage 4 chronic kidney disease, or unspecified chronic kidney disease; J91.8 Pleural effusion in other conditions classified elsewhere; K56.609 Unspecified intestinal obstruction, unspecified as to partial versus complete obstruction; T82.855A Stenosis of coronary artery stent, initial encounter; I82.812 Embolism and thrombosis of superficial veins of left lower extremity; Z20.822 Contact with and (suspected) exposure to COVID-19; D63.8 Anemia in other chronic diseases classified elsewhere; E11.22 Type 2 diabetes mellitus with diabetic chronic kidney disease; E11.51 Type 2 diabetes mellitus with diabetic peripheral angiopathy without gangrene; E55.9 Vitamin D deficiency, unspecified; E78.5 Hyperlipidemia, unspecified; I08.1 Rheumatic disorders of both mitral and tricuspid valves; I25.10 Atherosclerotic heart disease of native coronary artery without angina pectoris; J44.9 Chronic obstructive pulmonary disease, unspecified; K74.60 Unspecified cirrhosis of liver; N18.32 Chronic kidney disease, stage 3b; Y84.0 Cardiac catheterization as the cause of abnormal reaction of the patient, or of later complication, without mention of misadventure at the time of the procedure; T50.8X5A Adverse effect of diagnostic agents, initial encounter; I25.2 Old myocardial infarction; Z79.4 Long term (current) use of insulin; Z83.3 Family history of diabetes mellitus; Z87.442 Personal history of urinary calculi; Z89.432 Acquired absence of left foot; Z90.49 Acquired absence of other specified parts of digestive tract; Z98.51 Tubal ligation status; Z79.899 Other long term (current) drug therapy; Y92.89 Other specified places as the place of occurrence of the external cause
CPT/HCPCS: 36415; 36600; 51702; 71045; 74176; 80048; 80053; 80061; 80076; 81001; 82040; 82306; 82728; 82805; 82962; 83036; 83540; 83550; 83605; 83735; 83880; 84100; 84443; 84478; 84484; 85014; 85018; 85025; 85379; 85610; 85730; 86850; 86900; 86901; 86922; 87040; 87081; 87086; 87205; 87426; 89051; 93005; 93306; 93970; 94003; 94660; 96365; 96366; 96368; 96372; 96375; 97116; 97163; 97530; 99152; 99153; A4565; C1874; C1887; G0378; J0696; J1100; J1815; J2250; J2405; J3480; J3490; P9047; Q9967

== ENCOUNTER 2021-02-04 00:52 | Inpatient (IN) | payer OTHER ==
[~2021-02-04] VITALS: Ht 162.6 cm; Wt 69.0 kg
[~2021-02-04 00:52] MED LIST changes: +ASPI1CHW15 PO; -ATOR40TA52 PO; -BENA-30 PO; -BENA20TA14 PO; +CARV12.544 PO; -CARV25TA55 PO; +CHOL1CAP47 PO; +DOXY-286 PO; +FURO1TAB33 PO; -FURO20TA3 PO; -GABA300C10 PO; -INSLISPI SC; -ISOS60TA24 PO; +METF-370 PO; -NITR0.4S29 SL; +PANT40T PO; +SACU1TAB PO; -SPIR25TA8 PO
[2021-02-04] MEDS ORDERED: MORPHINE SULFATE 4 MG/ML SYR/VIAL IV ONE (01:15)
[2021-02-04] MEDS ORDERED: ONDANSETRON HCL 4 MG/2 ML VIAL IV ONE (01:15)
[2021-02-04 02:02] LABS: Basophils # (auto) 0.1 10 ^3/uL (0-0.2); Basophils % (auto) 1.6 % (0.0-2.0); Eosinophils # (auto) 0.1 10 ^3/uL (0-0.8); Hematocrit 25.9 % (36.0-46.0); Hemoglobin 8.7 g/dL (12.2-16.2); Lymphocytes # (auto) 1.5 10 ^3/uL (0.4-5.4); Mean Corpuscular Hemoglobin 32.6 pg (28.0-32.0); Mean Corpuscular Hgb Conc. 33.4 g/dL (32.0-36.0); Mean Corpuscular Volume 97.5 fL (80.0-100.0); Monocytes # (auto) 0.3 10 ^3/uL (0-1.3); Monocytes % (auto) 3.6 % (0.0-12.0); Neutrophils # (auto) 5.7 10 ^3/uL (1.6-8.6); Neutrophils % (auto) 74.8 % (37.0-80.0); Platelet Count (auto) 229 10^3/uL (140-450); Red Blood Cells 2.66 10^6/uL (4.0-5.20); Red Cell Distribution Width 16.5 % (11.8-14.3); White Blood Cell 7.6 10^3/uL (4.4-10.8)
[2021-02-04 02:19] LABS: Alanine Aminotransferase 20 U/L (13-56); Albumin 3.6 g/dL (3.4-5.0); Anion Gap 10 (5-15); Aspartate Aminotransferase 10 U/L (15-37); BUN/Creatinine Ratio 37.5; Blood Urea Nitrogen 69 mg/dL (7-18); Calcium 8.4 mg/dL (8.5-10.1); Carbon Dioxide 17 mmol/L (21-32); Chloride 110 mmol/L (98-107); GFR African American 35 mL/min; GFR Non-African American 29 mL/min; Glucose 383 mg/dL (74-106); INR 0.95 (0.9-1.15); Magnesium 2.7 mg/dL (1.6-2.6); Partial Thromboplastin Time 26.4 sec (23.0-31.2); Potassium 4.7 mmol/L (3.5-5.1); Sodium 137 mmol/L (136-145)
[2021-02-04 02:24] LABS: Alkaline Phosphatase 152 U/L (45-117); Bilirubin, Total 0.2 mg/dL (0.2-1.0); Total Protein 8.2 g/dL (6.4-8.2)
[2021-02-04] MEDS ORDERED: ENALAPRILAT 1.25 MG/ML-1ML VIAL IV ONE (04:00)
[2021-02-04] MEDS ORDERED: TEMAZEPAM 15 MG CAP PO PRN (07:00)
[2021-02-04] MEDS ORDERED: DEXTROSE (50%) 50ML SYRG IV PRN (07:00)
[2021-02-04] MEDS ORDERED: ALBUTEROL SULF 2.5 MG/0.5ML(0.5%) NEB SOLN NEB PRN (07:00)
[2021-02-04 07:38] VITALS: BP 131/58
[2021-02-04] MEDS ORDERED: ASPirin 81 mg TAB PO SCH (10:00)
[2021-02-04] MEDS ORDERED: amLODIPine BESYLATE 5 MG TAB PO SCH (10:00)
[2021-02-04] MEDS: cefTRIAXone 1GM/50ML D5W 50 ML IV SCH (10:15)
[2021-02-04] MEDS: PANTOPRAZOLE 40 MG TAB PO SCH (10:16)
[2021-02-04] MEDS: CLOPIDOGREL BISULFATE 75 MG TAB PO SCH (10:16)
[2021-02-04] MEDS: SACUBITRIL-VALSARTAN 24mg/26mg TAB PO SCH ×2 (10:16→21:33)
[2021-02-04] MEDS: DOCUSATE SOD 100 MG CAP PO SCH ×2 (10:16→21:33)
[2021-02-04] MEDS: ACETAMINOPHEN 325 MG TAB PO PRN ×2 (10:17→21:33)
[2021-02-04] MEDS: CARVEDILOL 12.5 MG TAB PO SCH ×2 (10:30→21:34)
[2021-02-04] MEDS: MORPHINE SULF INJ 2 MG/ML SYRINGE 1ML IV PRN ×2 (10:30→18:12)
[2021-02-04] MEDS: AZITHROMYCIN 500MG/ 250ML 250 ML IV SCH (12:42)
[2021-02-04] MEDS: ACCU-CHEK COMFORT CURVE STRIP VI SCH ×3 (12:45→23:41)
[2021-02-04] MEDS: InsuLIN REG 1unit/0.01ml Soln (100units/ml) SC SCH ×3 (12:49→23:41)
[2021-02-04 14:25] VITALS: BP 139/67
[2021-02-04] MEDS ORDERED: AMLO-496 PO (16:02)
[2021-02-04] MEDS ORDERED: MOXI0.5D9 LEFTEYE (16:07)
[2021-02-04] MEDS ORDERED: KETO0.3S LEFTEYE (16:08)
[2021-02-04] MEDS ORDERED: PRED1SUS4 LEFTEYE (16:09)
[2021-02-04] MEDS ORDERED: METF-929 PO (16:10)
[2021-02-04] MEDS ORDERED: SPIR25TA PO (16:11)
[2021-02-04] MEDS ORDERED: INSLANTI SC (16:12)
[2021-02-04] MEDS ORDERED: ASPI-498 PO (16:25)
[2021-02-04 16:59] VITALS: BP 133/80
[2021-02-04] MEDS: FUROSEMIDE 20 MG/2 ML VIAL IV SCH (18:05)
[2021-02-04 22:00] VITALS: BP 118/60
[2021-02-05 05:00] VITALS: BP 129/69
[2021-02-05] MEDS: FUROSEMIDE 20 MG/2 ML VIAL IV SCH ×3 (05:39→18:18)
[2021-02-05] MEDS: ACCU-CHEK COMFORT CURVE STRIP VI SCH ×4 (05:39→21:44)
[2021-02-05] MEDS: InsuLIN REG 1unit/0.01ml Soln (100units/ml) SC SCH ×4 (06:00→21:43)
[2021-02-05 06:52] LABS: Eosinophils # (auto) 0.1 10 ^3/uL (0-0.8); Hemoglobin 8.2 g/dL (12.2-16.2); Lymphocytes # (auto) 1.6 10 ^3/uL (0.4-5.4); Mean Corpuscular Volume 94.5 fL (80.0-100.0); Monocytes # (auto) 0.4 10 ^3/uL (0-1.3)
[2021-02-05 06:53] LABS: Basophils # (auto) 0.1 10 ^3/uL (0-0.2); Basophils % (auto) 1.2 % (0.0-2.0); Eosinophils % (auto) 1.5 % (0.0-7.0); Hematocrit 24.1 % (36.0-46.0); Lymphocytes % (auto) 20.4 % (10.0-50.0); Mean Corpuscular Hemoglobin 32.1 pg (28.0-32.0); Monocytes % (auto) 5.6 % (0.0-12.0); Neutrophils # (auto) 5.5 10 ^3/uL (1.6-8.6); Neutrophils % (auto) 71.3 % (37.0-80.0); Platelet Count (auto) 211 10^3/uL (140-450); Red Blood Cells 2.55 10^6/uL (4.0-5.20); White Blood Cell 7.7 10^3/uL (4.4-10.8)
[2021-02-05 07:15] LABS: Potassium 4.9 mmol/L (3.5-5.1)
[2021-02-05 07:23] LABS: BUN/Creatinine Ratio 41.9; Bilirubin, Total 0.3 mg/dL (0.2-1.0); Calcium 8.7 mg/dL (8.5-10.1)
[2021-02-05 08:47] VITALS: BP 128/55
[2021-02-05] MEDS: cefTRIAXone 1GM/50ML D5W 50 ML IV SCH (09:45)
[2021-02-05] MEDS: ASPirin 81 mg TAB PO SCH (09:46)
[2021-02-05] MEDS: PANTOPRAZOLE 40 MG TAB PO SCH (09:46)
[2021-02-05] MEDS: SACUBITRIL-VALSARTAN 24mg/26mg TAB PO SCH ×2 (09:46→21:42)
[2021-02-05] MEDS: DOCUSATE SOD 100 MG CAP PO SCH ×2 (09:47→21:41)
[2021-02-05] MEDS: CLOPIDOGREL BISULFATE 75 MG TAB PO SCH (09:48)
[2021-02-05] MEDS: CARVEDILOL 12.5 MG TAB PO SCH ×2 (09:48→21:42)
[2021-02-05] MEDS: AZITHROMYCIN 500MG/ 250ML 250 ML IV SCH (10:40)
[2021-02-05 12:34] VITALS: BP 123/55
[2021-02-05 16:44] VITALS: BP 146/67
[2021-02-05] MEDS: prednisoLONE ACETATE 1% OPTH SUSP 5ML LEFTEYE SCH ×2 (17:50→21:41)
[2021-02-05] MEDS: KETOROLAC TROMETHAMINE LEFTEYE SCH ×2 (17:56→21:40)
[2021-02-05] MEDS: MOXIFLOXACIN 0.5% LEFTEYE SCH ×2 (17:56→21:41)
[2021-02-05 22:00] VITALS: BP 131/66
[2021-02-05] MEDS: MORPHINE SULF INJ 2 MG/ML SYRINGE 1ML IV PRN (22:24)
[2021-02-05] MEDS: NITROGLYCERIN 0.4 MG SL TAB SL PRN ×2 (22:31→22:40)
[2021-02-06 05:00] VITALS: BP 142/69
[2021-02-06] MEDS: KETOROLAC TROMETHAMINE LEFTEYE SCH ×4 (06:01→23:09)
[2021-02-06] MEDS: prednisoLONE ACETATE 1% OPTH SUSP 5ML LEFTEYE SCH ×4 (06:01→23:09)
[2021-02-06] MEDS: MOXIFLOXACIN 0.5% LEFTEYE SCH ×4 (06:01→23:09)
[2021-02-06] MEDS: FUROSEMIDE 20 MG/2 ML VIAL IV SCH ×2 (06:01→17:44)
[2021-02-06] MEDS: ACCU-CHEK COMFORT CURVE STRIP VI SCH ×4 (06:01→23:13)
[2021-02-06] MEDS: InsuLIN REG 1unit/0.01ml Soln (100units/ml) SC SCH ×4 (06:11→23:57)
[2021-02-06 07:26] LABS: Basophils # (auto) 0 10 ^3/uL (0-0.2); Basophils % (auto) 0.4 % (0.0-2.0); Eosinophils # (auto) 0.2 10 ^3/uL (0-0.8); Eosinophils % (auto) 2.6 % (0.0-7.0); Hematocrit 27.5 % (36.0-46.0); Hemoglobin 9.3 g/dL (12.2-16.2); Lymphocytes # (auto) 1.7 10 ^3/uL (0.4-5.4); Lymphocytes % (auto) 25.2 % (10.0-50.0); Mean Corpuscular Hemoglobin 32.1 pg (28.0-32.0); Mean Corpuscular Hgb Conc. 33.8 g/dL (32.0-36.0); Monocytes # (auto) 0.4 10 ^3/uL (0-1.3); Monocytes % (auto) 5.6 % (0.0-12.0); Neutrophils # (auto) 4.4 10 ^3/uL (1.6-8.6); Neutrophils % (auto) 66.2 % (37.0-80.0); Platelet Count (auto) 237 10^3/uL (140-450); Red Cell Distribution Width 16.9 % (11.8-14.3); White Blood Cell 6.7 10^3/uL (4.4-10.8)
[2021-02-06 07:35] LABS: BUN/Creatinine Ratio 38.3; Potassium 4.6 mmol/L (3.5-5.1)
[2021-02-06 09:00] VITALS: BP 153/68
[2021-02-06] MEDS: PANTOPRAZOLE 40 MG TAB PO SCH (09:20)
[2021-02-06] MEDS: ASPirin 81 mg TAB PO SCH (09:20)
[2021-02-06] MEDS: SACUBITRIL-VALSARTAN 24mg/26mg TAB PO SCH ×2 (09:20→23:07)
[2021-02-06] MEDS: cefTRIAXone 1GM/50ML D5W 50 ML IV SCH (09:20)
[2021-02-06] MEDS: CLOPIDOGREL BISULFATE 75 MG TAB PO SCH (09:20)
[2021-02-06] MEDS: DOCUSATE SOD 100 MG CAP PO SCH ×2 (09:20→23:07)
[2021-02-06] MEDS: CARVEDILOL 12.5 MG TAB PO SCH ×2 (09:21→23:07)
[2021-02-06] MEDS: AZITHROMYCIN 500MG/ 250ML 250 ML IV SCH (10:40)
[2021-02-06] MEDS: DAKINS QUARTER STR 0.125% (NaHypochlorite) 473 ML TOPICAL SOL TOP SCH ×2 (11:18→23:13)
[2021-02-06 12:58] VITALS: BP 139/66
[2021-02-06] MEDS: LACTULOSE 20Gm/30ML SOLN PO PRN (14:45)
[2021-02-06 17:00] VITALS: BP 148/68
[2021-02-06 22:00] VITALS: BP 144/70
[2021-02-06] MEDS: ATORVASTATIN 20 MG TAB PO SCH (23:07)
[2021-02-07] MEDS: KETOROLAC TROMETHAMINE LEFTEYE SCH ×4 (05:33→22:21)
[2021-02-07] MEDS: MOXIFLOXACIN 0.5% LEFTEYE SCH ×4 (05:33→22:21)
[2021-02-07] MEDS: ACCU-CHEK COMFORT CURVE STRIP VI SCH ×3 (05:33→16:23)
[2021-02-07] MEDS: prednisoLONE ACETATE 1% OPTH SUSP 5ML LEFTEYE SCH ×4 (05:33→22:21)
[2021-02-07] MEDS: FUROSEMIDE 20 MG/2 ML VIAL IV SCH ×2 (05:33→17:24)
[2021-02-07 06:06] LABS: BUN/Creatinine Ratio 33.8; Potassium 4.4 mmol/L (3.5-5.1)
[2021-02-07] MEDS: InsuLIN REG 1unit/0.01ml Soln (100units/ml) SC SCH ×3 (06:27→16:21)
[2021-02-07 07:04] VITALS: BP 143/65
[2021-02-07 09:00] VITALS: BP 142/72
[2021-02-07] MEDS: DOCUSATE SOD 100 MG CAP PO SCH ×2 (09:43→22:22)
[2021-02-07] MEDS: cefTRIAXone 1GM/50ML D5W 50 ML IV SCH (09:43)
[2021-02-07] MEDS: ASPirin 81 mg TAB PO SCH (09:43)
[2021-02-07] MEDS: SACUBITRIL-VALSARTAN 24mg/26mg TAB PO SCH ×2 (09:44→22:23)
[2021-02-07] MEDS: CARVEDILOL 12.5 MG TAB PO SCH ×2 (09:44→22:23)
[2021-02-07] MEDS: CLOPIDOGREL BISULFATE 75 MG TAB PO SCH (09:45)
[2021-02-07] MEDS: PANTOPRAZOLE 40 MG TAB PO SCH (09:45)
[2021-02-07] MEDS: amLODIPine BESYLATE 5 MG TAB PO SCH (09:45)
[2021-02-07] MEDS ORDERED: LACTULOSE 20Gm/30ML SOLN PO ONE (11:30)
[2021-02-07] MEDS ORDERED: DOCUSATE SOD 100 MG CAP PO ONE (11:30)
[2021-02-07] MEDS: AZITHROMYCIN 250 MG TAB PO SCH (11:40)
[2021-02-07] MEDS: ONDANSETRON HCL 4 MG/2 ML VIAL IV PRN (12:52)
[2021-02-07 13:00] VITALS: BP 144/67
[2021-02-07] MEDS: DAKINS QUARTER STR 0.125% (NaHypochlorite) 473 ML TOPICAL SOL TOP SCH ×2 (16:23→22:25)
[2021-02-07 17:00] VITALS: BP 136/64
[2021-02-07 21:00] LABS: Urine Bacteria NONE SEEN /hpf (None Seen); Urine Blood Negative /uL (Negative); Urine Hyaline Cast FEW /lpf (0 - 2); Urine Specific Gravity 1.011 (1.001-1.035); Urine WBC 3 /hpf (0 - 5)
[2021-02-07 22:00] VITALS: BP 139/66
[2021-02-07] MEDS: ATORVASTATIN 20 MG TAB PO SCH (22:24)
[2021-02-08] MEDS: ACCU-CHEK COMFORT CURVE STRIP VI SCH ×5 (00:58→23:57)
[2021-02-08] MEDS: InsuLIN REG 1unit/0.01ml Soln (100units/ml) SC SCH ×4 (01:06→17:22)
[2021-02-08] MEDS: ACETAMINOPHEN 325 MG TAB PO PRN (01:08)
[2021-02-08 05:00] VITALS: BP 128/63
[2021-02-08] MEDS: prednisoLONE ACETATE 1% OPTH SUSP 5ML LEFTEYE SCH ×4 (06:04→21:18)
[2021-02-08] MEDS: FUROSEMIDE 20 MG/2 ML VIAL IV SCH ×2 (06:04→17:26)
[2021-02-08] MEDS: MOXIFLOXACIN 0.5% LEFTEYE SCH ×4 (06:04→21:17)
[2021-02-08] MEDS: KETOROLAC TROMETHAMINE LEFTEYE SCH ×4 (06:04→21:17)
[2021-02-08 09:11] VITALS: BP 137/64
[2021-02-08] MEDS: cefTRIAXone 1GM/50ML D5W 50 ML IV SCH (09:12)
[2021-02-08] MEDS: ASPirin 81 mg TAB PO SCH (09:56)
[2021-02-08] MEDS: DOCUSATE SOD 100 MG CAP PO SCH ×2 (09:56→21:18)
[2021-02-08] MEDS: amLODIPine BESYLATE 5 MG TAB PO SCH (09:57)
[2021-02-08] MEDS: SACUBITRIL-VALSARTAN 24mg/26mg TAB PO SCH ×2 (09:57→21:19)
[2021-02-08] MEDS: CARVEDILOL 12.5 MG TAB PO SCH ×2 (09:57→21:18)
[2021-02-08] MEDS: CLOPIDOGREL BISULFATE 75 MG TAB PO SCH (09:58)
[2021-02-08] MEDS: AZITHROMYCIN 250 MG TAB PO SCH (09:58)
[2021-02-08] MEDS: PANTOPRAZOLE 40 MG TAB PO SCH (09:58)
[2021-02-08 13:01] VITALS: BP 137/70
[2021-02-08 16:59] VITALS: BP 132/67
[2021-02-08] MEDS: DAKINS QUARTER STR 0.125% (NaHypochlorite) 473 ML TOPICAL SOL TOP SCH ×2 (17:12→21:19)
[2021-02-08] MEDS: ATORVASTATIN 20 MG TAB PO SCH (21:19)
[2021-02-08 22:00] VITALS: BP 150/70
[2021-02-09] MEDS: InsuLIN REG 1unit/0.01ml Soln (100units/ml) SC SCH ×5 (00:02→23:31)
[2021-02-09 05:00] VITALS: BP 112/50
[2021-02-09] MEDS: KETOROLAC TROMETHAMINE LEFTEYE SCH ×4 (05:46→21:53)
[2021-02-09] MEDS: MOXIFLOXACIN 0.5% LEFTEYE SCH ×4 (05:46→21:53)
[2021-02-09] MEDS: FUROSEMIDE 20 MG/2 ML VIAL IV SCH (05:46)
[2021-02-09] MEDS: prednisoLONE ACETATE 1% OPTH SUSP 5ML LEFTEYE SCH ×4 (05:47→21:52)
[2021-02-09] MEDS: ACCU-CHEK COMFORT CURVE STRIP VI SCH ×4 (05:47→23:25)
[2021-02-09] MEDS: DOCUSATE SOD 100 MG CAP PO SCH ×2 (09:00→21:47)
[2021-02-09] MEDS: ASPirin 81 mg TAB PO SCH (09:03)
[2021-02-09] MEDS: cefTRIAXone 1GM/50ML D5W 50 ML IV SCH (09:03)
[2021-02-09] MEDS: CLOPIDOGREL BISULFATE 75 MG TAB PO SCH (09:03)
[2021-02-09] MEDS: PANTOPRAZOLE 40 MG TAB PO SCH (09:03)
[2021-02-09] MEDS: SACUBITRIL-VALSARTAN 24mg/26mg TAB PO SCH ×2 (09:03→21:47)
[2021-02-09] MEDS: AZITHROMYCIN 250 MG TAB PO SCH (09:03)
[2021-02-09] MEDS: amLODIPine BESYLATE 5 MG TAB PO SCH (09:04)
[2021-02-09] MEDS: CARVEDILOL 12.5 MG TAB PO SCH ×2 (09:04→21:47)
[2021-02-09 09:20] LABS: Basophils # (auto) 0 10 ^3/uL (0-0.2); Basophils % (auto) 0.3 % (0.0-2.0); Eosinophils # (auto) 0.1 10 ^3/uL (0-0.8); Hematocrit 30.2 % (36.0-46.0); Hemoglobin 10.4 g/dL (12.2-16.2); Lymphocytes # (auto) 1.6 10 ^3/uL (0.4-5.4); Mean Corpuscular Hgb Conc. 34.6 g/dL (32.0-36.0); Mean Corpuscular Volume 95.5 fL (80.0-100.0); Monocytes # (auto) 0.3 10 ^3/uL (0-1.3); Monocytes % (auto) 5.2 % (0.0-12.0); Neutrophils # (auto) 4.6 10 ^3/uL (1.6-8.6); Neutrophils % (auto) 68.5 % (37.0-80.0); Platelet Count (auto) 251 10^3/uL (140-450); Red Blood Cells 3.16 10^6/uL (4.0-5.20); Red Cell Distribution Width 16.7 % (11.8-14.3); White Blood Cell 6.7 10^3/uL (4.4-10.8)
[2021-02-09 09:37] LABS: Potassium 4.6 mmol/L (3.5-5.1)
[2021-02-09 09:50] LABS: BUN/Creatinine Ratio 31.3; Calcium 9.5 mg/dL (8.5-10.1)
[2021-02-09 13:33] VITALS: BP 135/53
[2021-02-09] MEDS ORDERED: LIDOCAINE 2%HCL (LOCAL ANESTH.) INJ 20ML MDV ONE (15:19)
[2021-02-09] MEDS ORDERED: IOHEXOL 350 MG/ML 100ML IJ ONE (15:19)
[2021-02-09] MEDS ORDERED: fentaNYL CITRATE 100 MCG/2 ML VL ONE (15:21)
[2021-02-09] MEDS ORDERED: MIDAZOLAM HCL 1MG/1ML-2 ML VIAL ONE (15:21)
[2021-02-09] MEDS ORDERED: ANGIOMAX 250 MG VIAL IV ONE (15:21)
[2021-02-09] MEDS ORDERED: IODIXANOL 320MG/ML 100ML BTL IV ONE (15:22)
[2021-02-09] MEDS ORDERED: SODIUM CHL 0.9% 0 ML ONE (15:22)
[2021-02-09 17:38] VITALS: BP 130/61
[2021-02-09] MEDS: DAKINS QUARTER STR 0.125% (NaHypochlorite) 473 ML TOPICAL SOL TOP SCH ×2 (17:44→22:00)
[2021-02-09] MEDS: ATORVASTATIN 20 MG TAB PO SCH (21:47)
[2021-02-09 22:00] VITALS: BP 132/76
[2021-02-10 05:00] VITALS: BP 130/63
[2021-02-10] MEDS: MOXIFLOXACIN 0.5% LEFTEYE SCH ×4 (05:23→21:18)
[2021-02-10] MEDS: prednisoLONE ACETATE 1% OPTH SUSP 5ML LEFTEYE SCH ×4 (05:24→21:18)
[2021-02-10] MEDS: KETOROLAC TROMETHAMINE LEFTEYE SCH ×4 (05:24→21:18)
[2021-02-10] MEDS: ACCU-CHEK COMFORT CURVE STRIP VI SCH ×4 (05:33→23:21)
[2021-02-10] MEDS: InsuLIN REG 1unit/0.01ml Soln (100units/ml) SC SCH ×4 (05:33→23:21)
[2021-02-10 07:17] LABS: Basophils # (auto) 0 10 ^3/uL (0-0.2); Basophils % (auto) 0.5 % (0.0-2.0); Eosinophils # (auto) 0.1 10 ^3/uL (0-0.8); Eosinophils % (auto) 1.4 % (0.0-7.0); Hematocrit 30.5 % (36.0-46.0); Hemoglobin 10.5 g/dL (12.2-16.2); Lymphocytes # (auto) 1.7 10 ^3/uL (0.4-5.4); Lymphocytes % (auto) 24.7 % (10.0-50.0); Mean Corpuscular Hemoglobin 31.7 pg (28.0-32.0); Mean Corpuscular Hgb Conc. 34.4 g/dL (32.0-36.0); Mean Corpuscular Volume 92.2 fL (80.0-100.0); Monocytes # (auto) 0.4 10 ^3/uL (0-1.3); Monocytes % (auto) 5.8 % (0.0-12.0); Neutrophils # (auto) 4.8 10 ^3/uL (1.6-8.6); Neutrophils % (auto) 67.6 % (37.0-80.0); Nucleated Red Blood Cells % 0.1 %; Platelet Count (auto) 151 10^3/uL (140-450); Red Blood Cells 3.31 10^6/uL (4.0-5.20); Red Cell Distribution Width 16.6 % (11.8-14.3); White Blood Cell 7.1 10^3/uL (4.4-10.8)
[2021-02-10 07:33] LABS: Calcium 9.1 mg/dL (8.5-10.1); Potassium 5.1 mmol/L (3.5-5.1)
[2021-02-10 07:34] LABS: BUN/Creatinine Ratio 30.3
[2021-02-10] MEDS: ASPirin 81 mg TAB PO SCH (08:57)
[2021-02-10] MEDS: DOCUSATE SOD 100 MG CAP PO SCH ×2 (08:57→21:18)
[2021-02-10] MEDS: cefTRIAXone 1GM/50ML D5W 50 ML IV SCH (08:57)
[2021-02-10] MEDS: CARVEDILOL 12.5 MG TAB PO SCH ×2 (08:58→21:19)
[2021-02-10] MEDS: SACUBITRIL-VALSARTAN 24mg/26mg TAB PO SCH (08:58)
[2021-02-10] MEDS: amLODIPine BESYLATE 5 MG TAB PO SCH (08:58)
[2021-02-10] MEDS: PANTOPRAZOLE 40 MG TAB PO SCH (08:59)
[2021-02-10] MEDS: CLOPIDOGREL BISULFATE 75 MG TAB PO SCH (08:59)
[2021-02-10] MEDS: AZITHROMYCIN 250 MG TAB PO SCH (08:59)
[2021-02-10 09:00] VITALS: BP 135/64
[2021-02-10] MEDS: DAKINS QUARTER STR 0.125% (NaHypochlorite) 473 ML TOPICAL SOL TOP SCH ×2 (10:20→19:10)
[2021-02-10] MEDS: SODIUM BICARBONATE 50ML VIAL 50 ML in SOD CHL 0.45% 1,000 ML IV SCH (11:30)
[2021-02-10 13:00] VITALS: BP 123/55
[2021-02-10 15:49] LABS: Urine Bacteria FEW /hpf (None Seen); Urine Blood Negative /uL (Negative); Urine Specific Gravity 1.022 (1.001-1.035); Urine WBC 6 /hpf (0 - 5)
[2021-02-10 16:49] VITALS: BP 142/70
[2021-02-10] MEDS: ATORVASTATIN 20 MG TAB PO SCH (21:19)
[2021-02-10 22:00] VITALS: BP 145/85
[2021-02-10] MEDS: ACETAMINOPHEN 325 MG TAB PO PRN (22:37)
[2021-02-11 05:00] VITALS: BP 128/62
[2021-02-11] MEDS: prednisoLONE ACETATE 1% OPTH SUSP 5ML LEFTEYE SCH ×4 (05:27→22:00)
[2021-02-11] MEDS: KETOROLAC TROMETHAMINE LEFTEYE SCH ×4 (05:27→22:00)
[2021-02-11] MEDS: MOXIFLOXACIN 0.5% LEFTEYE SCH ×4 (05:27→22:00)
[2021-02-11] MEDS: ACCU-CHEK COMFORT CURVE STRIP VI SCH ×3 (05:31→17:32)
[2021-02-11] MEDS: InsuLIN REG 1unit/0.01ml Soln (100units/ml) SC SCH ×3 (05:31→17:36)
[2021-02-11 07:45] LABS: Potassium 4.7 mmol/L (3.5-5.1)
[2021-02-11 07:50] LABS: Calcium 8.4 mg/dL (8.5-10.1)
[2021-02-11 09:00] VITALS: BP 138/65
[2021-02-11] MEDS: cefTRIAXone 1GM/50ML D5W 50 ML IV SCH (09:47)
[2021-02-11] MEDS: SODIUM BICARBONATE 50ML VIAL 50 ML in SOD CHL 0.45% 1,000 ML IV SCH (09:47)
[2021-02-11] MEDS: DOCUSATE SOD 100 MG CAP PO SCH ×2 (09:48→21:51)
[2021-02-11] MEDS: ASPirin 81 mg TAB PO SCH (09:48)
[2021-02-11] MEDS: CLOPIDOGREL BISULFATE 75 MG TAB PO SCH (09:49)
[2021-02-11] MEDS: PANTOPRAZOLE 40 MG TAB PO SCH (09:49)
[2021-02-11] MEDS: amLODIPine BESYLATE 5 MG TAB PO SCH (09:49)
[2021-02-11] MEDS: CARVEDILOL 12.5 MG TAB PO SCH ×2 (09:49→21:52)
[2021-02-11] MEDS: AZITHROMYCIN 250 MG TAB PO SCH (09:50)
[2021-02-11] MEDS: DAKINS QUARTER STR 0.125% (NaHypochlorite) 473 ML TOPICAL SOL TOP SCH ×2 (11:59→22:00)
[2021-02-11] MEDS: ACETAMINOPHEN 325 MG TAB PO PRN (12:20)
[2021-02-11 13:00] VITALS: BP 133/62
[2021-02-11] MEDS ORDERED: BUMETANIDE 2.5mg/10ml (0.25 mg/ml) INJ IV ONE (15:00)
[2021-02-11 17:16] VITALS: BP 145/70
[2021-02-11] MEDS: LACTULOSE 20Gm/30ML SOLN PO PRN (20:30)
[2021-02-11 21:45] VITALS: BP 143/63
[2021-02-11] MEDS: ATORVASTATIN 20 MG TAB PO SCH (21:52)
[2021-02-11] MEDS: INSULIN LANTUS (GLARGINE) 1 /0.01ml (100units/ml) SC SCH (22:00)
[2021-02-11] MEDS: ONDANSETRON HCL 4 MG/2 ML VIAL IV PRN (23:16)
[2021-02-12] MEDS: InsuLIN REG 1unit/0.01ml Soln (100units/ml) SC SCH ×4 (00:30→17:39)
[2021-02-12] MEDS: ACCU-CHEK COMFORT CURVE STRIP VI SCH ×4 (00:30→17:39)
[2021-02-12 05:00] VITALS: BP 128/64
[2021-02-12] MEDS: KETOROLAC TROMETHAMINE LEFTEYE SCH ×4 (05:17→21:24)
[2021-02-12] MEDS: MOXIFLOXACIN 0.5% LEFTEYE SCH ×4 (05:18→21:24)
[2021-02-12] MEDS: prednisoLONE ACETATE 1% OPTH SUSP 5ML LEFTEYE SCH ×4 (05:18→21:24)
[2021-02-12] MEDS: SODIUM BICARBONATE 50ML VIAL 50 ML in SOD CHL 0.45% 1,000 ML IV SCH (05:30)
[2021-02-12 07:22] LABS: BUN/Creatinine Ratio 19.4; Calcium 8.2 mg/dL (8.5-10.1); Potassium 4.8 mmol/L (3.5-5.1)
[2021-02-12 09:00] VITALS: BP 153/70
[2021-02-12] MEDS: cefTRIAXone 1GM/50ML D5W 50 ML IV SCH (10:26)
[2021-02-12] MEDS: ASPirin 81 mg TAB PO SCH (10:27)
[2021-02-12] MEDS: DOCUSATE SOD 100 MG CAP PO SCH ×2 (10:27→21:25)
[2021-02-12] MEDS: amLODIPine BESYLATE 5 MG TAB PO SCH (10:28)
[2021-02-12] MEDS: CLOPIDOGREL BISULFATE 75 MG TAB PO SCH (10:28)
[2021-02-12] MEDS: CARVEDILOL 12.5 MG TAB PO SCH ×2 (10:28→21:25)
[2021-02-12] MEDS: PANTOPRAZOLE 40 MG TAB PO SCH (10:28)
[2021-02-12] MEDS: AZITHROMYCIN 250 MG TAB PO SCH (10:29)
[2021-02-12] MEDS: DAKINS QUARTER STR 0.125% (NaHypochlorite) 473 ML TOPICAL SOL TOP SCH ×2 (10:29→21:26)
[2021-02-12 13:00] VITALS: BP 113/59
[2021-02-12 17:16] VITALS: BP 144/61
[2021-02-12] MEDS: ACETAMINOPHEN 325 MG TAB PO PRN (20:08)
[2021-02-12] MEDS: ATORVASTATIN 20 MG TAB PO SCH (21:25)
[2021-02-12] MEDS: INSULIN LANTUS (GLARGINE) 1 /0.01ml (100units/ml) SC SCH (21:41)
[2021-02-12 22:00] VITALS: BP 153/69
[2021-02-13] MEDS: InsuLIN REG 1unit/0.01ml Soln (100units/ml) SC SCH ×2 (00:12→06:00)
[2021-02-13] MEDS: ACCU-CHEK COMFORT CURVE STRIP VI SCH ×2 (00:12→06:04)
[2021-02-13 05:00] VITALS: BP 151/69
[2021-02-13] MEDS: KETOROLAC TROMETHAMINE LEFTEYE SCH (06:03)
[2021-02-13] MEDS: MOXIFLOXACIN 0.5% LEFTEYE SCH (06:03)
[2021-02-13] MEDS: prednisoLONE ACETATE 1% OPTH SUSP 5ML LEFTEYE SCH (06:04)
[2021-02-13 06:10] LABS: Potassium 4.4 mmol/L (3.5-5.1)
[2021-02-13 06:15] LABS: BUN/Creatinine Ratio 19.2; Calcium 8.6 mg/dL (8.5-10.1)
[2021-02-13 08:00] VITALS: BP 155/70
[2021-02-13] MEDS: cefTRIAXone 1GM/50ML D5W 50 ML IV SCH (10:26)
[2021-02-13] MEDS: DOCUSATE SOD 100 MG CAP PO SCH (10:26)
[2021-02-13] MEDS: ASPirin 81 mg TAB PO SCH (10:26)
[2021-02-13] MEDS: CLOPIDOGREL BISULFATE 75 MG TAB PO SCH (10:27)
[2021-02-13] MEDS: AZITHROMYCIN 250 MG TAB PO SCH (10:27)
[2021-02-13] MEDS: PANTOPRAZOLE 40 MG TAB PO SCH (10:27)
[2021-02-13] MEDS: DAKINS QUARTER STR 0.125% (NaHypochlorite) 473 ML TOPICAL SOL TOP SCH (10:27)
[2021-02-13] MEDS: CARVEDILOL 12.5 MG TAB PO SCH (10:27)
[2021-02-13] MEDS: amLODIPine BESYLATE 5 MG TAB PO SCH (10:28)
[2021-02-13 11:17] VITALS: BP 155/70
== END 2021-02-13 11:56 | disposition home or self-care (01) | DRG 280 ==
LOC: ER 00:54 → TELE 00:55 → TELE-EAST 10:04
PROVIDERS: ADMIT Nurse Practitioner; ATTEND Internal Medicine
PROC: 4A023N7 Measurement of Cardiac Sampling and Pressure, Left Heart, Percutaneous Approach (ICD-10-PCS; principal; 2021-02-09)
PROC: B2111ZZ Fluoroscopy of Multiple Coronary Arteries using Low Osmolar Contrast (ICD-10-PCS; 2021-02-09)
PROC: B2151ZZ Fluoroscopy of Left Heart using Low Osmolar Contrast (ICD-10-PCS; 2021-02-09)
DX: I21.4 Non-ST elevation (NSTEMI) myocardial infarction (principal); I50.43 Acute on chronic combined systolic (congestive) and diastolic (congestive) heart failure; J18.9 Pneumonia, unspecified organism; J96.21 Acute and chronic respiratory failure with hypoxia; N18.6 End stage renal disease; I26.99 Other pulmonary embolism without acute cor pulmonale; E87.1 Hypo-osmolality and hyponatremia; I13.2 Hypertensive heart and chronic kidney disease with heart failure and with stage 5 chronic kidney disease, or end stage renal disease; N17.9 Acute kidney failure, unspecified; E11.22 Type 2 diabetes mellitus with diabetic chronic kidney disease; E11.40 Type 2 diabetes mellitus with diabetic neuropathy, unspecified; E11.51 Type 2 diabetes mellitus with diabetic peripheral angiopathy without gangrene; E66.01 Morbid (severe) obesity due to excess calories; D63.8 Anemia in other chronic diseases classified elsewhere; E78.5 Hyperlipidemia, unspecified; E11.21 Type 2 diabetes mellitus with diabetic nephropathy; I25.2 Old myocardial infarction; I25.10 Atherosclerotic heart disease of native coronary artery without angina pectoris; N14.1 Nephropathy induced by other drugs, medicaments and biological substances; T50.8X5A Adverse effect of diagnostic agents, initial encounter; Z20.822 Contact with and (suspected) exposure to COVID-19; Y92.89 Other specified places as the place of occurrence of the external cause; Z68.27 Body mass index [BMI] 27.0-27.9, adult; Z83.3 Family history of diabetes mellitus; Z87.442 Personal history of urinary calculi; Z95.5 Presence of coronary angioplasty implant and graft; Z89.432 Acquired absence of left foot; Z79.4 Long term (current) use of insulin
CPT/HCPCS: 36415; 36600; 71045; 71250; 74176; 78582; 80048; 80053; 81001; 82805; 82962; 83735; 83880; 84484; 85025; 85379; 85610; 85730; 86850; 86900; 86901; 87081; 87426; 93005; 93970; 94640; 96365; 96375; 97110; 97116; 97530; 99152; G0378; J0696; J1815; J2250; J2405; Q9967

== ENCOUNTER 2021-02-28 00:50 | Emergency (ER) | payer OTHER ==
[~2021-02-28] VITALS: Ht 144.8 cm; Wt 68.0 kg
[~2021-02-28 00:50] MED LIST changes: -AMLO-489 PO; +AMLO-496 PO; -DOXY-286 PO; -FURO1TAB33 PO; +ISOS1TAB28 PO; -ISOS30TA4 PO; +KETO0.3S LEFTEYE; -METF-370 PO; +MOXI0.5D9 LEFTEYE; +PRED1SUS4 LEFTEYE; -SACU1TAB PO
[2021-02-28] MEDS ORDERED: HYDROcodone-ACET 5/325MG TAB PO ONE (01:30)
[2021-02-28 03:00] VITALS: BP 128/56
== END 2021-02-28 04:00 | disposition home or self-care (01) ==
LOC: ER 00:50
DX: M54.6 Pain in thoracic spine (principal); I25.2 Old myocardial infarction; I25.10 Atherosclerotic heart disease of native coronary artery without angina pectoris; E78.00 Pure hypercholesterolemia, unspecified; I13.0 Hypertensive heart and chronic kidney disease with heart failure and stage 1 through stage 4 chronic kidney disease, or unspecified chronic kidney disease; I50.9 Heart failure, unspecified; N18.30 Chronic kidney disease, stage 3 unspecified; E11.22 Type 2 diabetes mellitus with diabetic chronic kidney disease; Z87.442 Personal history of urinary calculi; Z90.49 Acquired absence of other specified parts of digestive tract; Z98.51 Tubal ligation status; Z98.890 Other specified postprocedural states